=== PATIENT | male | born 1980 | race Caucasian/White ===

== ENCOUNTER 2023-04-30 13:33 | Outpatient (OUT) | payer MEDICARE, MEDICAID, SELFPAY ==
--- NOTE | 2023-04-30 13:37 | CT_ITS ---
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 TECHNIQUE: Multi-planar CT images were created with IV contrast. Axial, Coronal, and Sagittal images. Dose reduction techniques were achieved by using automated exposure control and/or adjustment of mA and/or kV according to patient size and/or use of iterative reconstruction technique. FINDINGS: LUNGS: Minimal right apical paraseptal emphysema. No significant pulmonary nodule or mass PLEURA: No mass, effusion, or pneumothorax. VASCULATURE: Hypodensity and bilateral lower lobe subsegmental pulmonary arteries however this is on several isolated slices incompletely relation to motion artifact or flow, the pattern argues against central pulmonary embolus JOCELYNE: No mass or adenopathy. MEDIASTINUM: No mass or adenopathy. CARDIAC: No enlargement, pericardial thickening, or significant calcification. AORTA: No aneurysm or dissection. CHEST WALL: No mass or axillary adenopathy. BONES: No bone lesion or fracture. LIMITED ABDOMEN: No suspicious findings. Limited images of the upper abdomen. OTHER: Negative. IMPRESSION: No acute abnormality Electronically authenticated by: RAMESH ROSE Date: 04/30/2023 17:07
== END 2023-04-30 13:34 ==
LOC: CT 13:34
DX: Q25.40 Congenital malformation of aorta unspecified (principal)
CPT/HCPCS: 71275; Q9967

== ENCOUNTER 2023-07-06 20:11 | Emergency (ER) | payer MEDICARE, MEDICAID, SELFPAY ==
[2023-07-06 20:16] VITALS: BP 145/79; PULSE 67; RESP 16; TEMP 37.1; O2SAT 97; BMI 30.8
--- NOTE | 2023-07-06 20:24 | ED_ITS ---
HPI - Extremity Injury (Upper) General Chief Complaint: Extremity Injury, Upper Stated Complaint: RIGHT HAND INJURY Time Seen by Provider: 07/06/23 20:19 History of Present Illness HPI narrative: moving furniture and cut his right hand overlying the 3rm MCP joint. No loss of strength or ROM of his fingers. UTD on vaccinations. Mild pain. Other Extremity Injury: Right: hand Related Data Allergies Allergy/AdvReac Type Severity Reaction Status Date / Time pertussis vaccine,adsorbed AdvReac Intermediate rash Verified 07/06/23 20:25 cephalexin AdvReac Severe Vomiting Uncoded 07/06/23 20:25 Review of Systems ROS Status of ROS 10 or more systems reviewed and unremarkable except as noted in h istory and below and other (patient is deaf) PFSH PFSH Social History Smoking status: Current every day smoker Exam Constitutional Vital Signs, click to edit/add: Last Vital Signs Temp 98.8 F 07/06/23 20:16 Pulse 67 07/06/23 20:16 Resp 16 07/06/23 20:16 BP 145/79 H 07/06/23 20:16 Pulse Ox 97 07/06/23 20:16 O2 Del Method Room Air 07/06/23 20:16 Common normals: no apparent distress, average body habitus, healthy appearing, alert and well nourished Eye Common normals: EOMs intact bilaterally and conjunctivae normal Respiratory Common normals: normal respiratory effort, no retractions and no use of accessory muscles Extremity Common normals: normal to inspection and full ROM Other: SQ 2cm lac overlying right 3rd MCP joint Neuro Common normals: CN's II-XII intact bilaterally, moves all extremities and no focal motor deficits Psych Appearance: grossly normal Course Vital Signs Vital signs: Vital Signs Temperature 98.8 F 07/06/23 20:16 Pulse Rate 67 07/06/23 20:16 Respiratory Rate 16 07/06/23 20:16 Blood Pressure 145/79 H 07/06/23 20:16 Pulse Oximetry 97 07/06/23 20:16 Oxygen Delivery Method Room Air 07/06/23 20:16 Temperature 98.8 F 07/06/23 20:16 Pulse Rate 67 07/06/23 20:16 Respiratory Rate 16 07/06/23 20:16 Blood Pressure 145/79 H 07/06/23 20:16 Pulse Oximetry 97 07/06/23 20:16 Oxygen Delivery Method Room Air 07/06/23 20:16 MDM - Extremity Injury (Upper) MDM Narrative Medical decision making narrative: presents with lac dorsum right hand overlying 3rd MCP. tendon exposure. xray unremarkable. lac repaired without incident. Patient discharged home to follow up with his doctor for recheck Discharge Plan Discharge Chief Complaint: Extremity Injury, Upper Clinical Impression: Laceration of hand, right Patient Disposition: Home, Self-Care Instructions: Laceration (ED) Additional Instructions: have wound rechecked in 2-3 days and stitches removed in 10 Stand Alone Forms: Portal Instructions Referrals: Physician,Non-Staff, MD [Primary Care Provider] - 1 week Procedures ED Procedure Instructions Procedures Procedures: 22mm lac SQ with exposure of extensor tendon. No obvious lac to tendon. 1%lido without epi as a local. Site cleaned with betadine and rinsed with saline. Closed with # 4 4.0 nylon stitches. Tolerated well
--- NOTE | 2023-07-06 20:25 | XR_ITS ---
[address] [address] Patient Name: KELI HATHAWAY MRN: [id number] date: 1980 Sex: M Assigned Patient Location: ER Current Patient Location: ED.MAIN Accession/Order Number: [id number] Exam Date: 07/06/2023 20:30 Report Date: 07/06/2023 20:48 At the request of: NANDO ALVARADO Procedure: XR hand RT min 3V EXAM: XR hand RT min 3V HISTORY: Laceration from lifting wood COMPARISON: None. TECHNIQUE: 3 views FINDINGS: IMPRESSION: No radiodense foreign body, osseous lesion, fracture, dislocation or subluxation. Joint spaces are normal. No visualized effusion. Electronically authenticated by: RAMESH RODRIGUEZ Date: 07/06/2023 20:48
--- NOTE | 2023-07-06 20:51 | PC.NURSE ---
laceration cleansed by DR at bedside prior to sutures.
[2023-07-06] MEDS: BACITRACIN 0.9 GM PACKET 1 PACKET TOPICAL (21:26)
== END 2023-07-06 21:36 | disposition home or self-care (01) ==
PROVIDERS: Emergency Provider Internal Medicine
DX: S61.411A Laceration without foreign body of right hand, initial encounter (principal); W26.9XXA Contact with unspecified sharp object(s), initial encounter; F17.210 Nicotine dependence, cigarettes, uncomplicated
CPT/HCPCS: 12001; 73130; 99284

== ENCOUNTER 2023-07-16 19:25 | Emergency (ER) | payer MEDICARE, MEDICAID, SELFPAY ==
[2023-07-16 19:33] VITALS: BP 125/76; PULSE 75; RESP 16; TEMP 36.6; O2SAT 98; BMI 25.1
--- NOTE | 2023-07-16 19:36 | ED.SKABFB1 ---
Documented by User: ANDI Wu 07/16/23 19:41 HPI - Skin/Abscess/Foreign Bdy General Chief complaint: Skin/Abscess/Foreign Body Stated complaint: Suture Removal Time Seen by Provider: 07/16/23 19:30 History of Present Illness HPI narrative: patient is a 42-year-old male history of deafness who presents to the emergency department for suture removal. He had four sutures placed per documentation on 07/06/23 when he had a tetanus update and a laceration to the right 3rd MCP joint. There is no noted redness or drainage from the area. at time of evaluation, patient is noted to only have three sutures in place to the laceration. Related Data Allergies Allergy/AdvReac Type Severity Reaction Status Date / Time pertussis vaccine,adsorbed AdvReac Intermediate rash Verified 07/06/23 20:25 cephalexin AdvReac Severe Vomiting Uncoded 07/06/23 20:25 Review of Systems ROS Constitutional Denies: fever or chills Ears, nose, mouth, and throat Denies: throat pain Cardiovascular Denies: chest pain Respiratory Denies: shortness of breath or cough Musculoskeletal Denies: back pain Integumentary/Breast Denies: rash PFSH PFS Social History Smoking status: Current every day smoker Exam Narrative Exam Narrative: Gen.: Awake, alert, in no distress Head: Normocephalic, atraumatic ENT: Moist mucous membranes Respiratory: No respiratory distress Extremities: Moves extremities equally, 3 Ethilon sutures at the 3rd MCP joint of the right hand. No erythema, no dehiscence or drainage noted. Psych: Normal mood and affect Neuro: No focal neuro deficit Skin: Warm, dry, intact Constitutional Vital Signs, click to edit/add: Last Vital Signs Temp 97.8 F 07/16/23 19:33 Pulse 75 07/16/23 19:33 Resp 16 07/16/23 19:33 BP 125/76 07/16/23 19:33 Pulse Ox 98 07/16/23 19:33 O2 Del Method Room Air 07/16/23 19:33 Course Vital Signs Vital signs: Vital Signs Temperature 97.8 F 07/16/23 19:33 Pulse Rate 75 07/16/23 19:33 Respiratory Rate 16 07/16/23 19:33 Blood Pressure 125/76 09/01/23 19:33 Pulse Oximetry 98 07/16/23 19:33 Oxygen Delivery Method Room Air 07/16/23 19:33 Temperature 97.8 F 07/16/23 19:33 Pulse Rate 75 07/16/23 19:33 Respiratory Rate 16 07/16/23 19:33 Blood Pressure 125/76 07/16/23 19:33 Pulse Oximetry 98 07/16/23 19:33 Oxygen Delivery Method Room Air 07/16/23 19:33 MDM - Skin/Abscess/Foreign Bdy MDM Narrative Medical decision making narrative: three sutures were removed intact with no residual suture material, no dehiscence or drainage. Follow-up with PCP and return to the Emergency Room if symptoms change or worsen Medical Records Attestation: I reviewed the patient's medical records. Discharge Plan Discharge Chief Complaint: Skin/Abscess/Foreign Body Clinical Impression: Encounter for removal of sutures Patient Disposition: Home, Self-Care Time of Disposition Decision: 19:35 Condition: Good Mode of Transportation: Private Vehicle Instructions: Stitches Removal (ED) Stand Alone Forms: Portal Instructions Referrals: Physician,Non-Staff, [Primary Care Provider] - 1 week Discharge Date/Time: 07/16/23 19:44 Documented by User: Zora Salazar MD 07/16/23 20:14 HPI - Skin/Abscess/Foreign Bdy General Chief complaint: Skin/Abscess/Foreign Body Stated complaint: Suture Removal Time Seen by Provider: 07/16/23 19:30 Related Data Allergies Allergy/AdvReac Type Severity Reaction Status Date / Time pertussis vaccine,adsorbed AdvReac Intermediate rash Verified 07/06/23 20:25 cephalexin AdvReac Severe Vomiting Uncoded 07/06/23 20:25 PFSH PFSH Social History Smoking status: Current every day smoker Exam Constitutional Vital Signs, click to edit/add: Last Vital Signs Temp 97.8 F 07/16/23 19:33 Pulse 75 07/16/23 19:33 Resp 16 07/16/23 19:33 BP 125/76 07/16/23 19:33 Pulse Ox 98 07/16/23 19:33 O2 Del Method Room Air 07/16/23 19:33 Course Vital Signs Vital signs: Vital Signs Temperature 97.8 F 07/16/23 19:33 Pulse Rate 75 07/16/23 19:33 Respiratory Rate 16 07/16/23 19:33 Blood Pressure 125/76 07/16/23 19:33 Pulse Oximetry 98 07/16/23 19:33 Oxygen Delivery Method Room Air 07/16/23 19:33 Temperature 97.8 F 07/16/23 19:33 Pulse Rate 75 07/16/23 19:33 Respiratory Rate 16 07/16/23 19:33 Blood Pressure 125/76 07/16/23 19:33 Pulse Oximetry 98 07/16/23 19:33 Oxygen Delivery Method Room Air 07/16/23 19:33 MDM - Skin/Abscess/Foreign Bdy MDM Narrative Medical decision making narrative: three sutures were removed intact with no residual suture material, no dehiscence or drainage. Follow-up with PCP and return to the Emergency Room if symptoms change or worsen Attending physician attestation All procedures were done by mid-level provider under my supervision. I have reviewed the mid-level documentation, agree with the documentation, medical decision making and treatment plan as outlined by the mid-level provider. Discharge Plan Discharge Chief Complaint: Skin/Abscess/Foreign Body Clinical Impression: Encounter for removal of sutures Patient Disposition: Home, Self-Care Time of Disposition Decision: 19:35 Condition: Good Mode of Transportation: Private Vehicle Instructions: Stitches Removal (ED) Stand Alone Forms: Portal Instructions Referrals: Physician,Non-Staff, MD [Primary Care Provider] - 1 week Discharge Date/Time: 07/16/23 19:44
--- NOTE | 2023-07-16 19:43 | PC.NURSE ---
PA in and removed 3 sutures. Area well approximated without S/S of infection
== END 2023-07-16 19:44 | disposition home or self-care (01) ==
PROVIDERS: Emergency Provider Emergency Medicine
DX: S61.411D Laceration without foreign body of right hand, subsequent encounter (principal); X58.XXXD Exposure to other specified factors, subsequent encounter; H91.90 Unspecified hearing loss, unspecified ear; F17.210 Nicotine dependence, cigarettes, uncomplicated
CPT/HCPCS: 99281

== ENCOUNTER 2023-08-23 11:22 | Emergency (ER) | payer MEDICARE, MEDICAID, SELFPAY ==
[2023-08-23 11:26] VITALS: BP 132/85; PULSE 105; RESP 18; TEMP 36.4; O2SAT 98; BMI 23.1
[2023-08-23 12:20] LABS: SARS-CoV-2 Ag NEGATIVE (NEGATIVE)
--- NOTE | 2023-08-23 13:23 | ED.EYEPROB1 ---
Documented by User: ANDI Hatfield 08/23/23 14:02 HPI - Eye Problem General Chief complaint: Upper Respiratory Infection Stated complaint: COUGH Time Seen by Provider: 08/23/23 13:23 Source: patient Mode of arrival: walk-in Limitations: other Limitations comment: DEAF History of Present Illness HPI Narrative: 42-year-old male presents with bilateral pruritic eyes with clear discharge for the past couple days. He is deaf and requiring an per diem interpreter. He is here with his who also has upper respiratory symptoms. He has been sneezing. He has been using clear eyes without any relief. Discharge is not green. Denies fever, sore throat, ear pain, cough, eye pain, vision changes Related Data Allergies Allergy/AdvReac Type Severity Reaction Status Date / Time pertussis vaccine,adsorbed AdvReac Intermediate rash Verified 07/06/23 20:25 cephalexin AdvReac Severe Vomiting Uncoded 07/06/23 20:25 Review of Systems ROS Status of ROS 10 or more systems reviewed and unremarkable except as noted in history and below PFSH PFSH Social History Smoking status: Current every day smoker Exam Narrative Exam Narrative: General: A&Ox3, no distress, talking in full an complete sentences skin: warm, dry, intact head: normocephalic, atraumatic eyes: PERRLA, EOMI, injected bilateral conjunctiva, no discharge nose: nares patent throat: no stridor neck: supple, trachea midline respiratory: non-labored extremities: FROM x 4 neuro: A&Ox3 psych: appropriate mood and affect, cooperative Constitutional Vital Signs, click to edit/add: Last Vital Signs Temp 97.6 F 08/23/23 11:26 Pulse 92 H 08/23/23 13:25 Resp 18 08/23/23 13:25 BP 136/88 08/23/23 13:25 Pulse Ox 98 08/23/23 13:25 O2 Del Method Room Air 08/23/23 11:26 Course Vital Signs Vital signs: Vital Signs Temperature 97.6 F 08/23/23 11:26 Pulse Rate 105 H 08/23/23 11:26 Respiratory Rate 18 08/23/23 11:26 Blood Pressure 132/85 08/23/23 11:26 Pulse Oximetry 98 08/23/23 11:26 Oxygen Delivery Method Room Air 08/23/23 11:26 Temperature 97.6 F 08/23/23 11:26 Pulse Rate 92 H 08/23/23 13:25 Respiratory Rate 18 08/23/23 13:25 Blood Pressure 136/88 08/23/23 13:25 Pulse Oximetry 98 08/23/23 13:25 Oxygen Delivery Method Room Air 08/23/23 11:26 MDM - Eye Problem MDM Narrative Medical decision making narrative: Patient complains of pruritic, swollen and red eyes and likely allergic versus viral as his also has upper respiratory symptoms and he is instructed to use [id number] Pataday eyedrops and follow-up family doctor. covid ordered by dr agarwal, this is negative. afebrile, not tachypneic, not tachycardic, tolerating p.o., not hypoxic, non toxic appearing and ambulating at baseline and hemodynamically stable to be d/c. answered all questions. pt in agreement with tx. educated when to return to ER. Lab Data Labs: Lab Results 08/23/23 Range/Units 11:55 SARS-CoV-2 (PCR) Negative (NEGATIVE) SARS-CoV-2 RNA (JAME) Not detected (NOT DETECTE) Discharge Plan Discharge Chief Complaint: Upper Respiratory Infection Clinical Impression: Acute allergic conjunctivitis of both eyes Patient Disposition: Home, Self-Care Time of Disposition Decision: 13:24 Condition: Good Mode of Transportation: Private Vehicle Instructions: Conjunctivitis (ED) Additional Instructions: use OTC eyedrops-pataday eye drops Stand Alone Forms: Portal Instructions Referrals: Physician,Non-Staff, [Primary Care Provider] - 1 week Discharge Date/Time: 08/23/23 13:54 Documented by User: Iain Agarwal MD 08/23/23 16:51 HPI - Eye Problem General Chief complaint: Upper Respiratory Infection Stated complaint: COUGH Time Seen by Provider: 08/23/23 13:23 Related Data Allergies Allergy/AdvReac Type Severity Reaction Status Date / Time pertussis vaccine,adsorbed AdvReac Intermediate rash Verified 07/06/23 20:25 cephalexin AdvReac Severe Vomiting Uncoded 07/06/23 20:25 PFSH PFS Social History Smoking status: Current every day smoker Exam Constitutional Vital Signs, click to edit/add: Last Vital Signs Temp 97.6 F 08/23/23 11:26 Pulse 92 H 08/23/23 13:25 Resp 18 08/23/23 13:25 BP 136/88 08/23/23 13:25 Pulse Ox 98 08/23/23 13:25 O2 Del Method Room Air 08/23/23 11:26 Course Vital Signs Vital signs: Vital Signs Temperature 97.6 F 08/23/23 11:26 Pulse Rate 105 H 08/23/23 11:26 Respiratory Rate 18 08/23/23 11:26 Blood Pressure 132/85 08/23/23 11:26 Pulse Oximetry 98 08/23/23 11:26 Oxygen Delivery Method Room Air 08/23/23 11:26 Temperature 97.6 F 08/23/23 11:26 Pulse Rate 92 H 08/23/23 13:25 Respiratory Rate 18 08/23/23 13:25 Blood Pressure 136/88 08/23/23 13:25 Pulse Oximetry 98 08/23/23 13:25 Oxygen Delivery Method Room Air 08/23/23 11:26 MDM - Eye Problem MDM Narrative Medical decision making narrative: Patient complains of pruritic, swollen and red eyes and likely allergic versus viral as his also has upper respiratory symptoms and he is instructed to use [id number] Pataday eyedrops and follow-up family doctor. covid ordered by dr agarwal, this is negative. afebrile, not tachypneic, not tachycardic, tolerating p.o., not hypoxic, non toxic appearing and ambulating at baseline and hemodynamically stable to be d/c. answered all questions. pt in agreement with tx. educated when to return to ER. I, Dr Agarwal, have reviewed the above progress note and course of action in the ER; agree with the above. I have personally seen and evaluated this patient, gone over history and physical, and discussed disposition and treatment plan with the patient. Lab Data Labs: Lab Results 08/23/23 Range/Units 11:55 SARS-CoV-2 (PCR) Negative (NEGATIVE) SARS-CoV-2 RNA (JAME) Not detected (NOT DETECTE) Discharge Plan Discharge Chief Complaint: Upper Respiratory Infection Clinical Impression: Acute allergic conjunctivitis of both eyes Patient Disposition: Home, Self-Care Time of Disposition Decision: 13:24 Condition: Good Mode of Transportation: Private Vehicle Instructions: Conjunctivitis (ED) Additional Instructions: use OTC eyedrops-pataday eye drops Stand Alone Forms: Portal Instructions Referrals: Physician,Non-Staff, MD [Primary Care Provider] - 1 week Discharge Date/Time: 08/23/23 13:54
[2023-08-23 13:25] VITALS: BP 136/88; PULSE 92; RESP 18; O2SAT 98
[2023-08-23 15:51] LABS: SARS-CoV-2 NAA NOT DETECTED (NOT DETECTE)
== END 2023-08-23 13:54 | disposition home or self-care (01) ==
PROVIDERS: Emergency Provider Emergency Medicine
DX: H10.33 Unspecified acute conjunctivitis, bilateral (principal); H91.93 Unspecified hearing loss, bilateral; F17.210 Nicotine dependence, cigarettes, uncomplicated; Z20.822 Contact with and (suspected) exposure to COVID-19
CPT/HCPCS: 87635; 87811; 99283; U0003

== ENCOUNTER 2023-12-29 19:15 | Emergency (ER) | payer MEDICARE, MEDICAID, SELFPAY ==
[2023-12-29 19:25] VITALS: BP 137/84; PULSE 73; RESP 16; TEMP 37; O2SAT 97; BMI 25.1
--- NOTE | 2023-12-29 19:43 | ED_ITS ---
HPI - General Adult General Chief complaint: Back Pain/Injury Stated complaint: Back Pain Time Seen by Provider: 12/29/23 19:27 Source: patient Mode of arrival: walk-in History of Present Illness HPI narrative: Patient is a 43-year-old male who presents to the ER with his significant other and child for the evaluation of multiple joints feeling sore and swollen. History is provided with the assistance of sign language interpreting service. Patient states for the last day he has had pain in the bilateral knees, right low back and left shoulder. He denies any mechanism of injury or trauma. He has had Mild cough and his has had the same. He has noted swelling of his knees but has not noticed any redness, rashes, fevers, vomiting. No medications taken prior to arrival. He has not had any urinary symptoms. Related Data Previous Rx's Medication Instructions Recorded ketorolac 10 mg tablet 10 mg PO TID PRN pain #10 tabs 12/29/23 methylprednisolone 4 mg tablets in See Rx Instructions .Route 12/29/23 a dose pack (Medrol (Robby)) .COMPLEX #21 ea Allergies Allergy/AdvReac Type Severity Reaction Status Date / Time pertussis vaccine,adsorbed AdvReac Intermediate rash Verified 07/06/23 20:25 cephalexin AdvReac Severe Vomiting Uncoded 07/06/23 20:25 Review of Systems ROS Constitutional Denies: fever or chills Ears, nose, mouth, and throat Denies: throat pain or nasal congestion Cardiovascular Denies: chest pain Respiratory Reports: cough; Denies: shortness of breath Gastrointestinal Denies: abdominal pain, nausea or vomiting Genitourinary Denies: painful urination Musculoskeletal Reports: back pain, extremity pain, extremity swelling, joint pain and joint swelling; Denies: neck pain, limited range of motion, muscle cramps or muscle weakness Integumentary/Breast Denies: rash Neurological Denies: headache Endocrine Denies: excessive urination Hematologic/Lymphatic Denies: easy bruising or easy bleeding PFSH PFSH Social History Smoking status: Current every day smoker Exam Narrative Exam Narrative: Gen.: Awake, alert, in no distress Head: Normocephalic, atraumatic ENT: Moist mucous membranes Respiratory: No respiratory distress, lungs clear bilaterally Cardio: Regular rate and rhythm Extremities: Moves extremities equally, no injuries noted; Bilateral anterior knees with minimal swelling, no erythema or warmth. Normal range of motion of the bilateral knees with no bony point tenderness or obvious deformity. Calves are soft and nontender, no pedal edema noted to the lower extremities. Left shoulder with full range of motion, no joint swelling or redness. Low back noted to have no tenderness over the midline T-spine or L-spine with diffuse mild tenderness of the paraspinal muscles of the right low back Psych: Normal mood and affect Neuro: No focal neuro deficit Skin: Warm, dry, intact Constitutional Vital Signs, click to edit/add: Last Vital Signs Temp 98.6 F 12/29/23 19:25 Pulse 73 12/29/23 19:25 Resp 16 12/29/23 19:25 BP 137/84 12/29/23 19:25 Pulse Ox 97 12/29/23 19:25 O2 Del Method Room Air 12/29/23 19:25 Course Vital Signs Vital signs: Vital Signs Temperature 98.6 F 12/29/23 19:25 Pulse Rate 73 12/29/23 19:25 Respiratory Rate 16 12/29/23 19:25 Blood Pressure 137/84 12/29/23 19:25 Pulse Oximetry 97 12/29/23 19:25 Oxygen Delivery Method Room Air 12/29/23 19:25 Temperature 98.6 F 12/29/23 19:25 Pulse Rate 73 12/29/23 19:25 Respiratory Rate 16 12/29/23 19:25 Blood Pressure 137/84 12/29/23 19:25 Pulse Oximetry 97 12/29/23 19:25 Oxygen Delivery Method Room Air 12/29/23 19:25 Medical Decision Making MDM Narrative Medical decision making narrative: Studies with normal white blood cell count, minimally elevated CRP and sed rates. Patient is negative for mono, urine specimen is unremarkable. X-rays were deferred as the patient had no mechanism of injury or trauma and has no jyoti dence of septic arthritis. He will be placed on a Medrol Dosepak and anti- inflammatories for home. Follow-up with PCP and return to the emergency department if symptoms change or worsen. Medical Records Medical records reviewed: Yes I reviewed the patient's medical records Lab Data Lab results reviewed: Yes I reviewed the patient's lab results Labs: Lab Results 12/29/23 12/29/23 Range/Units 19:35 20:15 WBC 8.0 (4.0-11.0) 10^3/uL RBC 4.88 (4.70-6.10) 10^6/uL Hgb 14.9 (14.0-18.0) g/dL Hct 43.7 (42.0-54.0) % MCV 89.5 (80.0-94.0) fL MCH 30.5 (25.9-34.0) pg MCHC 34.1 (29.9-35.2) g/dL RDW 12.2 (11.0-15.0) % Plt Count 238 (150-450) 10^3/uL MPV 8.8 L (9.5-13.5) fL Neut % (Auto) 66.5 (43.0-75.0) % Lymph % (Auto) 19.9 L (20.5-60.0) % [place] % (Auto) 12.0 (1.7-12.0) % Eos % (Auto) 0.6 L (0.9-7.0) % Baso % (Auto) 0.6 (0.2-2.0) % Neut # (Auto) 5.3 (1.4-6.5) 10^3/uL Lymph # (Auto) 1.6 (1.2-3.8) 10^3/uL [place] # (Auto) 1.0 H (0.3-0.8) 10^3/uL Eos # (Auto) 0.1 (0.0-0.7) 10^3/uL Baso # (Auto) 0.1 (0.0-0.1) 10^3/uL Abs Immat Gran (auto) 0.03 (0.00-0.03) 10^3/uL Imm/Tot Granulo (auto) 0.4 (0.0-0.5) % ESR 17 H (<=15) mm/hr Sodium 137 (136-145) mmol/L Potassium 3.5 (3.5-5.1) mmol/L Chloride 100 (98-107) mmol/L Carbon Dioxide 27.1 (21.0-32.0) mmol/L Anion Gap 13.4 BUN 11.0 (7.0-18.0) mg/dL Creatinine 1.08 (0.70-1.30) mg/dL Est GFR ( Amer) >60 (>=60) Est GFR (Non-Af Amer) >60 (>=60) BUN/Creatinine Ratio 10.2 Glucose 93 (74-106) mg/dL Calcium 8.7 (8.5-10.1) mg/dL Total Bilirubin 0.2 (0.2-1.0) mg/dL AST 12 L (15-37) U/L ALT 18 (16-63) U/L Alkaline Phosphatase 59 (46-116) U/L C-Reactive Protein 0.81 H (<=0.50) mg/dL Total Protein 6.7 (6.4-8.2) g/dL Albumin 3.4 (3.4-5.0) g/dL Globulin 3.3 g/dL Albumin/Globulin Ratio 1.0 Urine Color Yellow (YELLOW) Urine Clarity Clear (CLEAR) Urine pH 6.0 (5.0-9.0) Ur Specific [place] 1.025 (1.005-1.025) Urine Protein Negative (NEG/TRACE) mg/dL Urine Glucose (UA) Negative (NEGATIVE) mg/dL Urine Ketones Negative (NEGATIVE) mg/dL Urine Occult Blood Trace-i (NEGATIVE) Urine Nitrite Negative (NEGATIVE) Urine Bilirubin Negative (NEGATIVE) Urine Urobilinogen 0.2 (0.2-1.0) EU/dL Ur Leukocyte Esterase Negative (NEGATIVE) Urine RBC 0-2 (0-2) #/HPF Urine WBC None seen (NONE SEEN) #/HPF Ur Squamous Epith Cells None seen (NONE/RARE) #/LPF Urine Crystals None seen (None Seen) #/HPF Urine Bacteria None seen (NONE SEEN) #/HPF Urine Casts None seen (NONE SEEN) #/LPF Urine Mucus None seen (NONE SEEN) Ur Culture Indicated? No Monoscreen Negative (NEGATIVE) Discharge Plan Discharge Chief Complaint: Back Pain/Injury Clinical Impression: Polyarthralgia Patient Disposition: Home, Self-Care Time of Disposition Decision: 21:09 Condition: Good Prescriptions / Home Meds: New ketorolac 10 mg tablet 10 mg PO TID PRN (Reason: pain) Qty: 10 0RF methylprednisolone [Medrol (Robby)] 4 mg tablets,dose pack See Rx Instructions .ROUTE .COMPLEX Qty: 21 0RF Rx Instructions: Taper as directed Instructions: Arthralgia (ED) Stand Alone Forms: Portal Instructions Referrals: Physician,Non-Staff, MD [Primary Care Provider] - 1 week
[2023-12-29] MEDS: KETOROLAC TROMETHAMINE 60 MG/2 ML VIAL IM (19:54)
[2023-12-29] MEDS: ORPHENADRINE 60 MG/ 2 ML VIAL IM (19:54)
--- NOTE | 2023-12-29 20:26 | PC.NURSE ---
Pt presents with new onset of joint pain, specifically both knees, left shoulder and lower back. Pt denies having this before or doing anything that may have brought this on . Pts joints have no notable swelling or redness. No increased warmth to joints. Pt is hearing impaired and was assessed using an slasher sawyer.
[2023-12-29 20:32] LABS: Basophils Absolute Auto 0.1 10^3/uL (0.0-0.1); Basophils Percent Auto 0.6 % (0.2-2.0); Eosinophils Absolute Auto 0.1 10^3/uL (0.0-0.7); Eosinophils Percent Auto 0.6 % (0.9-7.0); Hematocrit 43.7 % (42.0-54.0); Hemoglobin 14.9 g/dL (14.0-18.0); Immature Granulocytes Abs Auto 0.03 10^3/uL (0.00-0.03); Immature Granulocytes Pct Auto 0.4 % (0.0-0.5); Lymphocytes Absolute Auto 1.6 10^3/uL (1.2-3.8); Lymphocytes Percent Auto 19.9 % (20.5-60.0); Mean Corpuscular HGB Conc 34.1 g/dL (29.9-35.2); Mean Corpuscular Hemoglobin 30.5 pg (25.9-34.0); Mean Corpuscular Volume 89.5 fL (80.0-94.0); Mean Platelet Volume 8.8 fL (9.5-13.5); Neutrophils Absolute Auto 5.3 10^3/uL (1.4-6.5); Neutrophils Percent Auto 66.5 % (43.0-75.0); Platelet Count 238 10^3/uL (150-450); Red Blood Count 4.88 10^6/uL (4.70-6.10); Red Cell Distribution Width 12.2 % (11.0-15.0)
[2023-12-29 20:36] LABS: Bilirubin Urine NEGATIVE (NEGATIVE); Blood Urine TRACE-I (NEGATIVE); Clarity Urine CLEAR (CLEAR); Color Urine YELLOW (YELLOW); Glucose Urine UA NEGATIVE (NEGATIVE); Ketones Urine NEGATIVE (NEGATIVE); Leukocyte Esterase Urine NEGATIVE (NEGATIVE); Nitrite Urine NEGATIVE (NEGATIVE); Protein Urine NEGATIVE (NEG/TRACE); Specific Gravity Urine 1.025 (1.005-1.025); Urobilinogen Urine 0.2 EU/dL (0.2-1.0)
[2023-12-29 20:44] LABS: Urine Microscopic Indicated YES
[2023-12-29 20:46] LABS: Erythrocyte Sedimentation Rate 17 mm/hr (<=15)
[2023-12-29 20:52] LABS: Bacteria Urine NONE SEEN #/HPF (NONE SEEN); Cast Seen? NONE SEEN #/LPF (NONE SEEN); Crystals Seen? None Seen #/HPF (None Seen); Mucus Urine NONE SEEN (NONE SEEN); RBC Urine 0-2 #/HPF (0-2); Squamous Epithelial Cell Urine NONE SEEN #/LPF (NONE/RARE); Urine Culture Indicated NO; WBC Urine NONE SEEN #/HPF (NONE SEEN)
[2023-12-29 20:56] LABS: Mono Screen NEGATIVE (NEGATIVE)
[2023-12-29 21:00] LABS: Alanine Aminotransferase 18 U/L (16-63); Albumin Level 3.4 g/dL (3.4-5.0); Alkaline Phosphatase 59 U/L (46-116); Anion Gap 13.4; Aspartate Amino Transferase 12 U/L (15-37); BUN Creatinine Ratio 10.2; Bilirubin Total 0.2 mg/dL (0.2-1.0); Calcium 8.7 mg/dL (8.5-10.1); Carbon Dioxide 27.1 mmol/L (21.0-32.0); Chloride 100 mmol/L (98-107); Estimated GFR (African America >60 (>=60); Estimated GFR (Non-African Ame >60 (>=60); Globulin 3.3 g/dL; Glucose 93 mg/dL (74-106); Potassium 3.5 mmol/L (3.5-5.1); Sodium 137 mmol/L (136-145); Total Protein 6.7 g/dL (6.4-8.2)
[2023-12-29 21:05] LABS: C Reactive Protein 0.81 mg/dL (<=0.50)
== END 2023-12-29 21:32 | disposition home or self-care (01) ==
PROVIDERS: Physician Assistant; Emergency Provider Emergency Medicine
DX: M25.50 Pain in unspecified joint (principal)
CPT/HCPCS: 36415; 80053; 81001; 85025; 85652; 86140; 86308; 96372; 99285; J1885; J2360

== ENCOUNTER 2024-01-19 08:56 | Emergency (ER) | payer MEDICARE, MEDICAID, SELFPAY ==
[2024-01-19 09:05] VITALS: BP 128/85; PULSE 74; RESP 18; TEMP 36.7; O2SAT 96; BMI 23.7
--- NOTE | 2024-01-19 09:12 | XR_ITS ---
The [address] [address] Patient Name: KELI HATHAWAY MRN: [id number] date: 1980 Sex: M Assigned Patient Location: ER Current Patient Location: ER Accession/Order Number: [id number] Exam Date: 01/19/2024 09:30 Report Date: 01/19/2024 09:44 At the request of: NATE PATRICIA Procedure: XR hand RT min 3V PROCEDURE: XR hand RT min 3V COMPARISON: 07/06/2023 HISTORY: pain FINDINGS: BONES:No fracture, acute abnormality, or significant arthropathy. SOFT TISSUES:Dorsal hand soft tissue swelling at the metatarsal heads EFFUSION:None visible. OTHER: Negative. XR/XR hand RT min 3V IMPRESSION: Soft tissue swelling, no acute fracture Electronically authenticated by: RAMESH ROSE Date: 01/19/2024 09:44
--- NOTE | 2024-01-19 10:15 | ED_ITS ---
HPI - General Adult General Chief complaint: Extremity Problem, Nontraumatic Stated complaint: UPPER XTREMITY PAIN Time Seen by Provider: 01/19/24 09:12 Source: patient Mode of arrival: walk-in Limitations: language barrier History of Present Illness HPI narrative: Patient is a 43-year-old male who is presenting to the ER today with chief complaint of a small area of swelling to the dorsal aspect of the right hand over the third MCP joint. Approxione 0.5 years ago, patient had a laceration to the area, showed me a picture of it that had approximately 5 or 6 stitches. Patient has intermittent soreness and pain to the area, patient always has had a small hole that is approximately 2 mm circumference that patient will intermittently have yellow pus draining out of. For the past 3 to 4 days, patient has had more swelling to the area, soft, fluctuant, and causing some discomfort with flexion extension of his right hand. Patient has no fever, chills, nausea, or any other systemic complaints. Patient's is at bedside. Patient uses sign language along with his for communication. A population health coach on the iPad was used with effective and clear communication with HPI, physical exam, discharge plan in summary and follow-up. All systems are negative except as noted/marked. All systems reviewed and otherwise negative. Nurses note and vital signs reviewed and patient is not hypoxic. General: The patient appears well and in no apparent distress. Patient is resting comfortably on cart. Patient is not toxic, lethargic, or listless Skin: Warm, dry, no pallor noted. There is no rash noted. No petechiae, purpura. Patient has a area of approximately 3 x 2 cm that is raised approximately 0.5 cm that is soft, fluctuant, mild tenderness to palpation. Patient does have full flexion extension of right second, third, fourth finger, but there is some discomfort with minimal grimace to his face with range of motion. No signs of trigger finger. Patient has no drainage from a chronic s car/area where the skin in the neck completely closed is approximately 2 mm in circumference. No discharge, pus or fluid is able to be extracted from the area. Head: Normocephalic, atraumatic Eye: Normal conjunctiva, no drainage, EOMI. PERRL Ears, Nose, Mouth, and Throat: oral mucosa is moist. Nares patent. Mouth without vesicles. Cardiovascular: Regular Rate and Rhythm, no murmur, gallop, rub Respiratory: Patient is in no distress, no accessory muscle use, lungs are clear to auscultation, no wheezing, rales or rhonchi Musculoskeletal: Patient has full range of motion of all of the extremities, no motor, sensory, or focal neurological deficits. patient has no limitation on flexion extension of the right hand. Neurological: A&O x4, normal speech Psychiatric: Cooperative Related Data Previous Rx's Medication Instructions Recorded ketorolac 10 mg tablet 10 mg PO TID PRN pain #10 tabs 12/29/23 methylprednisolone 4 mg tablets in See Rx Instructions .Route 12/29/23 a dose pack (Medrol (Robby)) .COMPLEX #21 ea mupirocin 2 % topical ointment 1 applic topical TID 14 days #15 01/19/24 grams sulfamethoxazole 800 1 tab PO BID 7 days #14 tabs 01/19/24 mg-trimethoprim 160 mg tablet (Bactrim DS) Allergies Allergy/AdvReac Type Severity Reaction Status Date / Time pertussis vaccine,adsorbed AdvReac Intermediate rash Verified 07/06/23 20:25 cephalexin AdvReac Severe Vomiting Uncoded 07/06/23 20:25 [facility] Social History Smoking status: Current every day smoker Exam Constitutional Vital Signs, click to edit/add: Last Vital Signs Temp 98.0 F 01/19/24 09:05 Pulse 74 01/19/24 09:05 Resp 18 01/19/24 09:05 BP 128/85 01/19/24 09:05 Pulse Ox 96 01/19/24 09:05 O2 Del Method Room Air 01/19/24 09:05 Course Vital Signs Vital signs: Vital Signs Temperature 98.0 F 01/19/24 09:05 Pulse Rate 74 01/19/24 09:05 Respiratory Rate 18 01/19/24 09:05 Blood Pressure 128/85 01/19/24 09:05 Pulse Oximetry 96 01/19/24 09:05 Oxygen Delivery Method Room Air 01/19/24 09:05 Temperature 98.0 F 01/19/24 09:05 Pulse Rate 74 01/19/24 09:05 Respiratory Rate 18 01/19/24 09:05 Blood Pressure 128/85 01/19/24 09:05 Pulse Oximetry 96 01/19/24 09:05 Oxygen Delivery Method Room Air 01/19/24 09:05 Medical Decision Making MDM Narrative Medical decision making narrative: Patient will be placed on Bactrim and Bactroban. Patient has a appointment that was made for Dr. Grant at 830 on Wednesday morning. Education on abscess and soft tissue skin mass was given at bedside and on discharge paperwork. Patient may have possible seroma versus ganglion cyst, there is minimal redness/erythema to the area. Patient will follow-up with orthopedic surgery. Patient uses sign language for interpretation. A population health coach was used on the iPad, HPI, physical exam, discharge plan in summary and follow-up were clear and effective with sign language translation. No questions at discharge from patient or his at bedside. Discharge Plan Discharge Chief Complaint: Extremity Problem, Nontraumatic Clinical Impression: Swelling of right hand, Abscess of right hand Patient Disposition: Home, Self-Care Time of Disposition Decision: 10:10 Condition: Fair Prescriptions / Home Meds: New mupirocin 2 % ointment 1 applic topical TID 14 Days Qty: 15 0RF sulfamethoxazole-trimethoprim [Bactrim DS] 800-160 mg tablet 1 tab PO BID 7 Days Qty: 14 0RF No Action ketorolac 10 mg tablet 10 mg PO TID PRN (Reason: pain) Qty: 10 0RF methylprednisolone [Medrol (Robby)] 4 mg tablets,dose pack See Rx Instructions .ROUTE .COMPLEX Qty: 21 0RF Rx Instructions: Taper as directed Instructions: Abscess (ED), Soft Tissue Mass (ED) Additional Instructions: Use antibiotic ointment 3 times a day for the next 3 weeks and also take antib iotic pills as directed as well. You have an appointment made at 8:30 in the morning here at [facility] with Dr. Grant at the specialty clinic Referrals: Physician,Non-Staff, [Primary Care Provider] - 1 week Erwin Grant MD [Physician] - 1 week Stand Alone Forms: Portal Instructions
== END 2024-01-19 10:25 | disposition home or self-care (01) ==
PROVIDERS: Emergency Provider Emergency Medicine
DX: L02.511 Cutaneous abscess of right hand (principal); M79.89 Other specified soft tissue disorders; F17.210 Nicotine dependence, cigarettes, uncomplicated; H91.93 Unspecified hearing loss, bilateral
CPT/HCPCS: 73130; 99283

== ENCOUNTER 2024-02-07 08:44 | Outpatient (OUT) | payer MEDICARE, MEDICAID, SELFPAY ==
--- NOTE | 2024-02-07 | XR_ITS ---
The [address] [address] Patient Name: KELI HATHAWAY MRN: [id number] date: 1980 Sex: M Assigned Patient Location: Current Patient Location: Accession/Order Number: [id number] Exam Date: 02/07/2024 08:55 Report Date: 02/07/2024 09:37 At the request of: JORGE LUIS SOLO Procedure: XR hand RT min 3V PROCEDURE: XR hand RT min 3V COMPARISON: 01/19/2024 HISTORY: RIGHT HAND PAIN FINDINGS: BONES:No fracture, acute abnormality, or significant arthropathy. SOFT TISSUES:Soft tissue swelling at the third metacarpal phalangeal joint EFFUSION:None visible. OTHER: Negative. XR/XR hand RT min 3V IMPRESSION: Soft tissue swelling possibly representing joint effusion third metacarpal phalangeal joint Electronically authenticated by: RAMESH ROSE Date: 02/07/2024 09:37
--- OUTSIDE RECORDS SUMMARY | 2024-02-07 08:59 | XMS_ITS | CCD ---
Author Organization [facility] Care Team Providers Care Labor Gang Supervisor Name Role Phone BETH MARTINEZ Unavailable Unavailable Spasic, QUALITY ASSURANCE SUPERVISOR TRIMTaiC Ela Bey Attending Provider Spasic, Ela Bey Admitting Unavailable Spasic, Ela Bey Attending Unavailable SPASIC, ELA Admitting Unavailable SPASIC, ELA Attending Unavailable SPASIC, ELA Primary Care Unavailable DR RAMESH ROSE V Consulting Unavailable NEFCY, KAYODE Consulting Unavailable SPASIC, ELA Consulting Unavailable SPASIC, ELA Admitting Unavailable SPASIC, ELA Attending Unavailable SPASIC, ELA Primary Care Unavailable SPASIC, ELA Consulting Unavailable Allergies Allergy Classification Reported Allergen(s) Allergy Type Date of Onset Reaction(s) Facility (1 source) 4-Aminobenzoic Acid Drug Allergy 05-24-2017 [facility] Repository (1 source) Cephalexin Drug Allergy 05-24-2017 [facility] Repository Problems Active Problems Problem Classification Problem Date Documented Date Episodic/Chronic Nonspecific chest pain (6 sources) Other chest pain; Translations: [Other chest pain] Onset: 12-10-2022 Episodic Other screening for suspected conditions (not mental disorders or infectious disease) (4 sources) Abnormal electrocardiogram [ECG] [EKG]; Translations: [ABNORMAL ELECTROCARDIOGRAM] Onset: 03-24-2023 Episodic Spondylosis; intervertebral disc disorders; other back problems (1 source) Spondylosis without myelopathy or radiculopathy, cervical region; Translations: [SPONDYLS W/O MYELO-/RADICULOP CERV] Onset: 12-25-2022 Chronic Thyroid disorders (1 source) Nontoxic goiter, unspecified; Translations: [NONTOXIC GOITER UNSPECIFIED] Onset: 12-25-2022 Chronic Past or Other Problems Problem Classification Problem Date Documented Da te Episodic/Chronic Genitourinary symptoms and ill-defined conditions (2 sources) Urethral discharge, unspecified; Translations: [Urethral discharge, unspecified] Onset: 01-26-2018 Episodic Spondylosis; intervertebral disc disorders; other back problems (1 source) Cervicalgia; Translations: [CERVICALGIA] Onset: 12-25-2022 Episodic Results Test Name Value Interpretation Reference Range Facility ECHO LIMITED STUDYon 023 ECHO LIMITED STUDY Patient Name Site KELI Corbett [facility] Account No Medical Record Number Age Sex Date Time [id number] [facility]:[id number] M 03/24/2023 10:03 At the Request Of ELA SALMERON ECHOCARDIOGRAM REPORT PROCEDURE: CARDIO PULMONARY ECHO LIMITED STUDY INDICATIONS: Abnormal EKG, Atypical Chest pain COMPARISON: None. DESCRIPTION: Limited ECHOCARDIOGRAM Real-time transthoracic echocardiography with 2D and M-mode performed. QUALITY: Technical quality was good. BSA 2.08 LEFT VENTRICLE: Normal chamber size. Normal left ventricular wall thickness. Global left ventricular systolic function is normal. LV EF: Estimated left ventricular ejection fraction is 55-60% DIASTOLIC: ATRIAL SEPTUM: LEFT ATRIUM: Normal chamber size. RIGHT ATRIUM: Normal chamber size. RIGHT VENTRICLE: The right ventricle appears mildly dilated. Normal right ventricular systolic function. TRICUSPID VALVE: Normal mobility and thickness. MITRAL VALVE: Normal mobility and thickness. AORTIC VALVE: Normal trileaflet appearance. Normal leaflet mobility. AORTIC ROOT: Mildly dilated. Measuring 3.8 cm. PULMONIC VALVE: Normal thickness and mobility. PERICARDIUM: No evidence of pericardial effusion. IVC: Collapses with inspirations. Normal size PLEURA: CONCLUSION: 1. Normal left ventricular systolic function. LVEF is estimated at 55 to 60%. 2. The right ventricle is mildly dilated with normal systolic function. 3. Mildly dilated aortic root. 4. Limited study performed with no Doppler interrogation as requested. Adult Echocardiography Procedure Report Left Ventricle LVEDD (3.7 - 5.6 cm): 4.91 cm LVESD (2.2 - 4.0 cm): 3.22 cm LVIVS thickness (0.6 - 1.2 cm): 0.94 cm LVPW thickness (0.5 - 1.0 cm): 1.01 cm LVOT Diameter 2.26 cm Left Ventricular Ejection Fraction: 55-60 % Left Atrium LA Volume Index (2D A2C): 47.36 ml, 47.36 ml Left Atrium Systolic Dimension: 3.71 cm Mitral Valve Right Ventricle RV Internal Diastolic Dimension: 3.07 cm Aorta AO Root Diam: 3.79 cm Ascending Ao Diam: 3.55 cm Aortic Valve Tricuspid Valve Pulmonic Valve Right Atrium Dictated by: Avelino Galicia M.D. on 03/24/2023 at 18:09 Approved by: Avelino Galicia M.D. on 03/24/2023 at 18:14 Normal [facility] XR CSPINE 2_3 VIEWSon 2022 XR CSPINE 2_3 VIEWS EXAMINATION: XR CSPI NE 2_3 VIEWS HISTORY: Neck pain COMPARISON: 03/08/1950 FINDINGS: BONES: Normal alignment with no acute fracture or spondylolisthesis. Mild degenerative spondylosis C5-C6 DISC SPACES: Normal. No significant disc height narrowing, subluxation, or endplate abnormality. PARASPINOUS: Negative. No paraspinous abnormality is seen. OTHER: Remote fixation of the mandible with plates and screws. IMPRESSION: Moderate degenerative spondylosis C5-C6 Electronically authenticated by: RAMESH ROSE Date: 2022-12-24 07:41 Normal [facility] US THYROIDon 12-23-2022 US THYROID EXAM: US THYROID HISTORY: Simple goiter COMPARISON: None. TECHNIQUE: Multiple sonographic images of the thyroid gland were obtained, supplemented with Doppler. FINDINGS: The right lobe measures 4.7 x 1.3 x 1.4 cm. Homogeneous echoes are noted throughout. No nodule is identified within. The left lobe measures 4.8 x 1.1 x 1.6 cm. Homogeneous echoes are noted throughout. No nodule is identified within. The isthmus measures 1 mm in thickness. There is no evidence of a focal mass or abnormal fluid collection surrounding the gland. At the end of the abdomen ultrasound study the patient indicated the soft tissues in the submandibular region bilaterally. Small lymph nodes are noted bilaterally inferior to the submandibular glands. IMPRESSION: The thyroid gland is at the upper limits of normal in size. No abnormality is identified within. TI RADS 1. Incidentally noted are small lymph nodes seen in the soft tissues inferior to the submandibular gland bilaterally. Electronically authenticated by: KAYODE ONEILL Date: 2022-12-23 15:22 Normal [facility] XR CHEST 2 Von 12-23-2022 XR CHEST 2 V EXAM: XR CHEST 2 V HISTORY: Chest pain COMPARISON: 04/30/2013 TECHNIQUE: Upright PA and lateral chest x-ray FINDINGS: The heart is not enlarged and the vasculature is not distended. No acute infiltrate, effusion or pneumothorax is identified. The osseous structures are grossly intact. IMPRESSION: No acute infiltrate or evidence of cardiac decompensation. The overall appearance of the chest is unchanged. Electronically authenticated by: KAYODE ONEILL Date: 2022-12-23 15:25 Normal [facility] Albumin [Mass/volume] in Ser um or PlasmaOrdered By: Ela Salmeron on 12-10-2022 Albumin [Mass/Vol] 3.9 g/dL Normal 3.2-5.5 [facility] Comment on above: Order Comment: Reaso n for Exam Atypical chest pain Performed By: #### H SCRP, CBC, CMP, TSH3 wRFLX, FE and TIBC, LIPID #### [facility] [address] [place] [address] Automated basophil %Ordered By: Ela Salmeron on 12-10-2022 Basophils/100 WBC (Bld) 0.8 % Normal . [facility] Comment on above: Order Comment: Reaso n for Exam Atypical chest pain Performed By: #### H SCRP, CBC, CMP, TSH3 wRFLX, FE and TIBC, LIPID #### [facility] [address] [place] [address] Automated basophil countOrde red By: Ela Salmeron on 12-10-2022 Basophils (Bld) [#/Vol] 0.1 10*3/uL Normal 0.0-0.2 [facility] Comment on above: Order Comment: Reaso n for Exam Atypical chest pain Result Comment: PERF ORMED BY: [place] [address] PATHOLOGIST MASTER [employer] YACHT KAIA ORELLANA M.D. Performed By: #### H SCRP, CBC, CMP, TSH3 wRFLX, FE and TIBC, LIPID #### [facility] [address] [place] [address] Automated blood monocyte cou ntOrdered By: Ela Salmeron on 12-10-2022 Monocytes (Bld) [#/Vol] 0.7 10*3/uL Normal 0.0-0.8 [facility] Comment on above: Order Comment: Reaso n for Exam Atypical chest pain Performed By: #### H SCRP, CBC, CMP, TSH3 wRFLX, FE and TIBC, LIPID #### [facility] [address] [place] [id number] [place] Automated eosinophil %Ordere d By: Ela June on 12-10-2022 Eosinophils/100 WBC (Bld) 3.2 % Normal . [facility] Comment on above: Order Comment: Reaso n for Exam Atypical chest pain Performed By: #### H SCRP, CBC, CMP, TSH3 wRFLX, FE and TIBC, LIPID #### [facility] [address] Automated eosinophil countOr dered By: Ela June on 12-10-2022 Eosinophils (Bld) [#/Vol] 0.3 10*3/uL Normal 0.0-0.45 [facility] Comment on above: Order Comment: Reaso n for Exam Atypical chest pain Performed By: #### H SCRP, CBC, CMP, TSH3 wRFLX, FE and TIBC, LIPID #### [facility] [address] [place] [id number] [facility] Automated monocyte %Ordered By: Ela June on 12-10-2022 Monocytes/100 WBC (Bld) 8.5 % Normal . [facility] Comment on above: Order Comment: Reaso n for Exam Atypical chest pain Performed By: #### H SCRP, CBC, CMP, TSH3 wRFLX, FE and TIBC, LIPID #### [facility] [address] [place] [address] [place] Automated neutrophil %Ordere d By: Ela June on 12-10-2022 Neutrophils/100 WBC (Bld) 59.1 % Normal . [facility] Comment on above: Order Comment: Reaso n for Exam Atypical chest pain Performed By: #### H SCRP, CBC, CMP, TSH3 wRFLX, FE and TIBC, LIPID #### [facility] [address] [place] [address] [place] C reactive protein [Mass/vol ume] in Serum or Plasma by High sensitivity methodOrdered By: Ela Salmeron on 12-10-2022 CRP High sensitivity method [Mass/Vol] 5.5 mg/L [facility] Comment on above: Cardiovascular Risk Classification (AHA/CDC)hsCRP < 1.0 mg/l low relative risk for CVDhsCRP 1.0-3.0 mg/l average relative risk for CVDhsCRP > 3.0 mg/l high relative risk for CVDhsCRP > 7.5 mg/l active inflammation*Two results two weeks apart and averaged provide a morestable estimate of hsCRP level.*hsCRP levels > 7.5 mg/l may suggest infection that canlimit the use of this marker for estimation of CVD risk. CT biopsyOrdered By: Ela pena on 12-10-2022 Transferrin [Mass/Vol] 203 mg/dL Normal 180-380 [facility] Comment on above: Order Comment: Reaso n for Exam Atypical chest pain Performed By: #### H SCRP, CBC, CMP, TSH3 wRFLX, FE and TIBC, LIPID #### [facility] [address] [place] [address] [place] Cholesterol [Mass/volume] in Serum or PlasmaOrdered By: Ela Salmeron on 12-10-2022 Cholesterol [Mass/Vol] 146 mg/dL Normal 140-200 [facility] Comment on above: Chol less than 200 m g/dl low riskChol 201-239 mg/dl borderline riskChol 240 mg/dl and greater high risk Order Comment: Reaso n for Exam Atypical chest pain Result Comment: Chol less than 200 mg/dl low risk Chol 201-239 mg/dl borderline risk Chol 240 mg/dl and greater high risk Performed By: #### H SCRP, CBC, CMP, TSH3 wRFLX, FE and TIBC, LIPID #### [facility] [address] [place] [address] [place] Cholesterol in LDL Calc [Mas s/Vol]Ordered By: Ela Salmeron on 12-10-2022 Cholesterol in LDL [Mass/Vol] 81 mg/dL 0-100 [facility] Comment on above: LDL ATP III CLASSIFI CATIONLDL less than 100 mg/dL OptimalLDL 100-129 mg/dL Near or above optimalLDL 130-159 mg/dL Borderline highLDL 160-189 mg/dL HighLDL greater than 189 mg/dL Very high Cholesterol in VLDL Calc [Ma ss/Vol]Ordered By: Ela Salmeron on 12-10-2022 Cholesterol in VLDL [Mass/Vol] 33 mg/dL [facility] Complete Blood Count Auto Di ffon 12-10-2022 Mean Corpuscular HGB Conc 33.7 g/dL Normal 32.5-35.6 [facility] Comment on above: Order Comment: Reaso n for Exam Atypical chest pain Performed By: #### H SCRP, CBC, CMP, TSH3 wRFLX, FE and TIBC, LIPID #### [facility] [address] NRBC% 0.1 /100{WBC} Normal 0-0.5 [facility] Comment on above: Order Comment: Reaso n for Exam Atypical chest pain Performed By: #### H SCRP, CBC, CMP, TSH3 wRFLX, FE and TIBC, LIPID #### [facility] [address] Comprehensive Metabolic Pane noemy 12-10-2022 ALT [Catalytic activity/Vol] 13 U/L Normal 10-60 [facility] Comment on above: Order Comment: Reaso n for Exam Atypical chest pain Performed By: #### H SCRP, CBC, CMP, TSH3 wRFLX, FE and TIBC, LIPID #### [facility] [address] [place] [address] [place] Estimated GFR ( Anyi > 60 Normal [facility] Comment on above: Order Comment: Reaso n for Exam Atypical chest pain Result Comment: GFR estimated reference range: According to KDOQI guidelines, <60 ml/min/1.73m2 is sufficient to diagnose a patient with chronic kidney disease. Performed By: #### H SCRP, CBC, CMP, TSH3 wRFLX, FE and TIBC, LIPID #### [facility] [address] Estimated GFR (Non- Am > 60 Normal [facility] Comment on above: Order Comment: Reaso n for Exam Atypical chest pain Performed By: #### H SCRP, CBC, CMP, TSH3 wRFLX, FE and TIBC, LIPID #### [facility] [address] Erythrocyte distribution wid th [Ratio] by Automated countOrdered By: Ela Salmeron on 12-10-2022 Erythrocyte distribution width (RBC) [Ratio] 12.8 % Normal 12.0-14.8 [facility] Comment on above: Order Comment: Reaso n for Exam Atypical chest pain Performed By: #### H SCRP, CBC, CMP, TSH3 wRFLX, FE and TIBC, LIPID #### [facility] [address] Erythrocytes [#/volume] in B lood by Automated countOrdered By: Ela Salmeron on 12-10-2022 RBC (Bld) [#/Vol] 5.05 10*6/uL Normal 3.90-5.60 [facility] Comment on above: Order Comment: Reaso n for Exam Atypical chest pain Performed By: #### H SCRP, CBC, CMP, TSH3 wRFLX, FE and TIBC, LIPID #### [address] Estimated glomerular filtrat ion rate (GFR) non- AmericanOrdered By: Ela Salmeron on 12-10-2022 GFR/1.73 sq M.predicted among non-blacks MDRD (S/P/Bld) [Vol rate/Area] > 60 mL/Min [facility] Hematocrit [Volume Fraction] of Blood by Automated countOrdered By: Ela Salmeron on 12-10-2022 Hematocrit (Bld) [Volume fraction] 44.9 % Normal 38.8-50.0 [facility] Comment on above: Order Comment: Reaso n for Exam Atypical chest pain Performed By: #### H SCRP, CBC, CMP, TSH3 wRFLX, FE and TIBC, LIPID #### [facility] [address] Hemoglobin [Mass/volume] in BloodOrdered By: Ela Salmeron on 12-10-2022 Hemoglobin (Bld) [Mass/Vol] 15.1 g/dL Normal 13.0-17.0 [facility] Comment on above: Order Comment: Reaso n for Exam Atypical chest pain Performed By: #### H SCRP, CBC, CMP, TSH3 wRFLX, FE and TIBC, LIPID #### [facility] [address] [place] [id number] [facility] High Sensitive CRPon 023 High Sensitive CRP 5.5 mg/L Normal [facility] Comment on above: Order Comment: Reaso n for Exam Atypical chest pain Result Comment: Card iovascular Risk Classification (AHA/CDC) hsCRP < 1.0 mg/l low relative risk for CVD hsCRP 1.0-3.0 mg/l average relative risk for CVD hsCRP > 3.0 mg/l high relative risk for CVD hsCRP > 7.5 mg/l active inflammation* Two results two weeks apart and averaged provide a more stable estimate of hsCRP level. *hsCRP levels > 7.5 mg/l may suggest infection that can limit the use of this marker for estimation of CVD risk. PERFORMED BY: [place] [address] PATHOLOGIST MASTER [employer] YACHT KAIA ORELLANA M.D. Performed By: #### H SCRP, CBC, CMP, TSH3 wRFLX, FE and TIBC, LIPID #### [place] [id number] [facility] Iron [Mass/volume] in Serum or PlasmaOrdered By: Ela Salmeron on 12-10-2022 Iron [Mass/Vol] 140 ug/dL Normal 40-160 [facility] Comment on above: Order Comment: Reaso n for Exam Atypical chest pain Performed By: #### H SCRP, CBC, CMP, TSH3 wRFLX, FE and TIBC, LIPID #### [facility] [address] [place] [id number] [facility] Iron and TIBC Profileon 11-16 % Iron Saturation 49.3 % Normal 20-50 [facility] Comment on above: Order Comment: Reaso n for Exam Atypical chest pain Performed By: #### H SCRP, CBC, CMP, TSH3 wRFLX, FE and TIBC, LIPID #### [facility] [address] Total Iron Binding Capacity 284 ug/dL Normal 255-450 [facility] Comment on above: Order Comment: Reaso n for Exam Atypical chest pain Performed By: #### H SCRP, CBC, CMP, TSH3 wRFLX, FE and TIBC, LIPID #### [facility] [address] [place] [id number] [facility] Iron binding capacity [Mass/ volume] in Serum or PlasmaOrdered By: Ela Sharpc on 12-10-2022 Iron binding capacity [Mass/Vol] 284 ug/dL 255-450 [facility] Iron saturation [Mass Fracti on] in Serum or PlasmaOrdered By: Ela Sharpc on 12-10-2022 Iron saturation [Mass fraction] 49.3 % 20-50 [facility] Leukocytes [#/volume] correc aristeo for nucleated erythrocytes in Blood by Automated counOrdered By: Ela Salmeron on 12-10-2022 WBC corrected for nucl RBC Auto (Bld) [#/Vol] 8.7 10*3/uL 4.1-10.5 [facility] Leukocytes [#/volume] in Blo od by Automated countOrdered By: Ela Salmeron on 12-10-2022 WBC (Bld) [#/Vol] 8.7 10*3/uL Normal 4.1-10.5 [facility] Comment on above: Order Comment: Reaso n for Exam Atypical chest pain Performed By: #### H SCRP, CBC, CMP, TSH3 wRFLX, FE and TIBC, LIPID #### [facility] [address] [place] [id number] [facility] Lipid Panelon 12-10-2022 LDL Cholesterol,Calculated 81 mg/dL Normal 0-100 [facility] Comment on above: Order Comment: Reaso n for Exam Atypical chest pain Result Comment: LDL ATP III CLASSIFICATION LDL less than 100 mg/dL Optimal LDL 100-129 mg/dL Near or above optimal LDL 130-159 mg/dL Borderline high LDL 160-189 mg/dL High LDL greater than 189 mg/dL Very high Performed By: #### H SCRP, CBC, CMP, TSH3 wRFLX, FE and TIBC, LIPID #### [facility] [address] Triglyceride w/Reflex 168 mg/dL High 35-149 [facility] Comment on above: Order Comment: Reaso n for Exam Atypical chest pain Result Comment: TRIG ATP III CLASSIFICATION TRIG less than 150 mg/dL Normal TRIG 150-199 mg/dL Borderline high TRIG 200-500 mg/dL High TRIG greater than 500 mg/dL Very high Standard traceable to the Center for Disease Conrtrol and Prevention (CDC) test method. Performed By: #### H SCRP, CBC, CMP, TSH3 wRFLX, FE and TIBC, LIPID #### [facility] [address] VLDL CHOLESTEROL 33 mg/dL Normal [facility] Comment on above: Order Comment: Reaso n for Exam Atypical chest pain Performed By: #### H SCRP, CBC, CMP, TSH3 wRFLX, FE and TIBC, LIPID #### [facility] [address] [place] [address] Lymphocytes [#/volume] in Bl ood by Automated countOrdered By: Ela Salmeron on 12-10-2022 Lymphocytes (Bld) [#/Vol] 2.5 10*3/uL Normal 1.00-4.8 [facility] Comment on above: Order Comment: Reaso n for Exam Atypical chest pain Performed By: #### H SCRP, CBC, CMP, TSH3 wRFLX, FE and TIBC, LIPID #### [facility] [address] [place] [address] [place] Lymphocytes/100 leukocytes i n Blood by Automated countOrdered By: Ela Salmeron on 12-10-2022 Lymphocytes/100 WBC (Bld) 28.4 % Normal . [facility] Comment on above: Order Comment: Reaso n for Exam Atypical chest pain Performed By: #### H SCRP, CBC, CMP, TSH3 wRFLX, FE and TIBC, LIPID #### [facility] [address] [place] [address] MCH [Entitic mass] by Automa aristeo countOrdered By: Ela Salmeron on 12-10-2022 MCH (RBC) [Entitic mass] 30.0 pg Normal 27.5-35.2 [facility] Comment on above: Order Comment: Reaso n for Exam Atypical chest pain Performed By: #### H SCRP, CBC, CMP, TSH3 wRFLX, FE and TIBC, LIPID #### [facility] [address] [place] [address] MCHC Auto (RBC) [Mass/Vol]Or dered By: Ela Salmeron on 12-10-2022 MCHC (RBC) [Mass/Vol] 33.7 g/dL 32.5-35.6 [facility] MCV [Entitic volume] by Auto mated countOrdered By: Ela Salmeron on 12-10-2022 MCV (RBC) [Entitic vol] 88.9 fL Normal 83.5-101 [facility] Comment on above: Order Comment: Reaso n for Exam Atypical chest pain Performed By: #### H SCRP, CBC, CMP, TSH3 wRFLX, FE and TIBC, LIPID #### [facility] [address] [place] [address] Neutrophils [#/volume] in Bl ood by Automated countOrdered By: Ela Salmeron on 12-10-2022 Neutrophils (Bld) [#/Vol] 5.1 10*3/uL Normal 1.8-7.7 [facility] Comment on above: Order Comment: Reaso n for Exam Atypical chest pain Performed By: #### H SCRP, CBC, CMP, TSH3 wRFLX, FE and TIBC, LIPID #### [facility] [address] [place] [address] No Panel InformationOrdered By: Ela Salmeron on 12-10-2022 Estimated GFR () > 60 mL/Min [facility] Comment on above: GFR estimated refere nce range: According to KDOQI guidelines, <60 ml/min/1.73m2 is sufficient to diagnose a patient with chronic kidney disease. Pharmacy Creatinine Clearance (Chem N/A [facility] Nucleated erythrocytes [Pres ence] in Blood by Automated countOrdered By: Ela Salmeron on 12-10-2022 Nucleated RBC Auto Ql (Bld) 0.1 /100{WBC} 0-0.5 [facility] Platelet mean volume [Entiti c volume] in Blood by Automated countOrdered By: Ela Salmeron on 12-10-2022 Platelet mean volume (Bld) [Entitic vol] 6.8 fL Normal 6.6-10.1 [facility] Comment on above: Order Comment: Reaso n for Exam Atypical chest pain Performed By: #### H SCRP, CBC, CMP, TSH3 wRFLX, FE and TIBC, LIPID #### [facility] [address] Platelets [#/volume] in Bloo d by Automated countOrdered By: Ela Salmeron on 12-10-2022 Platelets (Bld) [#/Vol] 350 10*3/uL Normal 150-450 [facility] Comment on above: Order Comment: Reaso n for Exam Atypical chest pain Performed By: #### H SCRP, CBC, CMP, TSH3 wRFLX, FE and TIBC, LIPID #### [facility] [address] [place] [address] [place] Protein [Mass/volume] in Ser um or PlasmaOrdered By: Ela Salmeron on 12-10-2022 Protein [Mass/Vol] 6.5 g/dL Normal 6.1-7.9 [facility] Comment on above: Order Comment: Reaso n for Exam Atypical chest pain Performed By: #### H SCRP, CBC, CMP, TSH3 wRFLX, FE and TIBC, LIPID #### [facility] [address] [place] [address] [place] Serum globulin measurement b y calculation (mass/volume)Ordered By: Ela Salmeron on 12-10-2022 Globulin (S) [Mass/Vol] 2.6 g/dL Normal [facility] Comment on above: Order Comment: Reaso n for Exam Atypical chest pain Performed By: #### H SCRP, CBC, CMP, TSH3 wRFLX, FE and TIBC, LIPID #### [facility] [address] Serum or plasma alanine noyola otransferase measurement without P-5'-P (enzymatic activiOrdered By: Ela Salmeron on 12-10-2022 ALT No additional P-5'-P [Catalytic activity/Vol] 13 U/L 10-60 [facility] Serum or plasma albumin/glob ulin mass ratioOrdered By: Ela Salmeron on 12-10-2022 Albumin/Globulin [Mass ratio] 1.5 {ratio} Normal [facility] Comment on above: Order Comment: Reaso n for Exam Atypical chest pain Performed By: #### H SCRP, CBC, CMP, TSH3 wRFLX, FE and TIBC, LIPID #### [facility] [address] [address] Serum or plasma alkaline monica sphatase measurement (enzymatic activity/volume)Ordered By: Ela Salmeron on 12-10-2022 ALP [Catalytic activity/Vol] 57 U/L Normal 32-92 [facility] Comment on above: Order Comment: Reaso n for Exam Atypical chest pain Performed By: #### H SCRP, CBC, CMP, TSH3 wRFLX, FE and TIBC, LIPID #### [facility] [address] [place] [address] Serum or plasma anion gap de terminationOrdered By: Ela aSlmeron on 12-10-2022 Anion gap [Moles/Vol] 11.1 mmol/L Normal 6.0-15.0 [facility] Comment on above: Order Comment: Reaso n for Exam Atypical chest pain Performed By: #### H SCRP, CBC, CMP, TSH3 wRFLX, FE and TIBC, LIPID #### [facility] [address] Serum or plasma aspartate am inotransferase measurement (enzymatic activity/volume)Ordered By: Ela Salmeron on 12-10-2022 AST [Catalytic activity/Vol] 15 U/L Normal 10-42 [facility] Comment on above: Order Comment: Reaso n for Exam Atypical chest pain Performed By: #### H SCRP, CBC, CMP, TSH3 wRFLX, FE and TIBC, LIPID #### [facility] [address] [place] [id number] [facility] Serum or plasma calcium marla urement (mass/volume)Ordered By: Ela Salmeron on 12-10-2022 Calcium [Mass/Vol] 9.1 mg/dL Normal 8.2-10.2 [facility] Comment on above: Order Comment: Reaso n for Exam Atypical chest pain Performed By: #### H SCRP, CBC, CMP, TSH3 wRFLX, FE and TIBC, LIPID #### [facility] [address] [id number] [facility] Serum or plasma chloride amelia surement (moles/volume)Ordered By: Ela Salmeron on 12-10-2022 Chloride [Moles/Vol] 101 mmol/L Normal 95-114 [facility] Comment on above: Order Comment: Reaso n for Exam Atypical chest pain Performed By: #### H SCRP, CBC, CMP, TSH3 wRFLX, FE and TIBC, LIPID #### [facility] [address] Serum or plasma creatinine m easurement with calculation of estimated glomerular filtrOrdered By: Ela Salmeron on 12-10-2022 Creatinine [Mass/Vol] 1.01 mg/dL Normal 0.64-1.27 [facility] Comment on above: Order Comment: Reaso n for Exam Atypical chest pain Performed By: #### H SCRP, CBC, CMP, TSH3 wRFLX, FE and TIBC, LIPID #### [facility] [address] [id number] [facility] Serum or plasma glucose marla urement (mass/volume)Ordered By: Ela Salmeron on 12-10-2022 Glucose [Mass/Vol] 89 mg/dL Normal 70-100 [facility] Comment on above: ADA recommended refe rence rangeRandom Glucose Reference Range is dependent on time and content of last meal. Glucose of more than 200 mg/dL in a nonstressed, ambulatory subject supports the diagnosis of Diabetes Mellitus. Order Comment: Reaso n for Exam Atypical chest pain Result Comment: [place] Glucose Reference Range is dependent on time and content of last meal. Glucose of more than 200 mg/dL in a nonstressed, ambulatory subject supports the diagnosis of Diabetes Mellitus. ADA recommended reference range Performed By: #### H SCRP, CBC, CMP, TSH3 wRFLX, FE and TIBC, LIPID #### [facility] [address] Serum or plasma high density lipoprotein (HDL) cholesterol measurementOrdered By: Ela Salmeron on 12-10-2022 Cholesterol in HDL [Mass/Vol] 31 mg/dL Normal 29-71 [facility] Comment on above: HDL CHOL ATP-III CLA SSIFICATION Cardiovascular RiskHDL > or equal to 60 mg/dL LOWHDL < 40 mg/dL HIGH Order Comment: Reaso n for Exam Atypical chest pain Result Comment: HDL CHOL ATP-III CLASSIFICATION Cardiovascular Risk HDL > or equal to 60 mg/dL LOW HDL < 40 mg/dL HIGH Performed By: #### H SCRP, CBC, CMP, TSH3 wRFLX, FE and TIBC, LIPID #### [address] Serum or plasma potassium me asurement (moles/volume)Ordered By: Ela Salmeron on 12-10-2022 Potassium [Moles/Vol] 4.4 mmol/L Normal 3.5-5.1 [facility] Comment on above: Order Comment: Reaso n for Exam Atypical chest pain Performed By: #### H SCRP, CBC, CMP, TSH3 wRFLX, FE and TIBC, LIPID #### [address] Serum or plasma sodium measu rement (moles/volume)Ordered By: Ela Salmeron on 12-10-2022 Sodium [Moles/Vol] 135 mmol/L Low 136-146 [facility] Comment on above: Order Comment: Reaso n for Exam Atypical chest pain Performed By: #### H SCRP, CBC, CMP, TSH3 wRFLX, FE and TIBC, LIPID #### [facility] [address] Serum or plasma total biliru bin measurement (mass/volume)Ordered By: Ela Salmeron on 12-10-2022 Bilirubin [Mass/Vol] 0.8 mg/dL Normal 0.3-1.2 [facility] Comment on above: Order Comment: Reaso n for Exam Atypical chest pain Performed By: #### H SCRP, CBC, CMP, TSH3 wRFLX, FE and TIBC, LIPID #### [facility] [address] Serum or plasma total carbon dioxide measurement (moles/volume)Ordered By: Ela Salmeron on 12-10-2022 CO2 [Moles/Vol] 27.3 mmol/L Normal 22.0-30.0 [facility] Comment on above: Order Comment: Reaso n for Exam Atypical chest pain Performed By: #### H SCRP, CBC, CMP, TSH3 wRFLX, FE and TIBC, LIPID #### [facility] [address] Serum or plasma total choles terol/high density lipoprotein (HDL) cholesterol mass ratOrdered By: Ela Salmeron on 12-10-2022 Cholesterol.total/Choles terol in HDL [Mass ratio] 4.7 {ratio} Normal <5.0 [facility] Comment on above: Order Comment: Reaso n for Exam Atypical chest pain Performed By: #### H SCRP, CBC, CMP, TSH3 wRFLX, FE and TIBC, LIPID #### [facility] [address] Serum or plasma urea nitroge n measurement (mass/volume)Ordered By: Ela Salmeron on 12-10-2022 Urea nitrogen [Mass/Vol] 10 mg/dL Normal 9-23 [facility] Comment on above: Order Comment: Reaso n for Exam Atypical chest pain Performed By: #### H SCRP, CBC, CMP, TSH3 wRFLX, FE and TIBC, LIPID #### [facility] [address] TSH DL <= 0.005 mIU/L QnOrde red By: Ela Salmeron on 12-10-2022 TSH Qn 1.02 m[IU]/L 0.45-5.33 [facility] Thyroid Stim Hormone w/Rflxo n 12-10-2022 Thyroid Stim Hormone w/Rflx 1.02 u[iU]/mL Normal 0.45-5.33 [facility] Comment on above: Order Comment: Reaso n for Exam Atypical chest pain Result Comment: PERF ORMED BY: [facility] [address] [place] [address] PATHOLOGIST MASTER [employer] YACHT KAIA ORELLANA M.D. Performed By: #### H SCRP, CBC, CMP, TSH3 wRFLX, FE and TIBC, LIPID #### [facility] [address] Triglyceride [Mass/volume] i n Serum or PlasmaOrdered By: Ela Salmeron on 12-10-2022 Triglyceride [Mass/Vol] 168 mg/dL 35-149 [facility] Comment on above: TRIG ATP III CLASSIF ICATIONTRIG less than 150 mg/dL NormalTRIG 150-199 mg/dL Borderline highTRIG 200-500 mg/dL High TRIG greater than 500 mg/dL Very highStandard traceable to the Center for Disease Conrtrol and Prevention (CDC) test method. Coding Summary.on 04-16-2021 Coding Summary. CD:[id number] Gh 0bWw+PGhlYWQ+NS1ATMTrX 01owVOruL1RN8cKAM1QKSS FHUSNGA0ODV7bxBV3EMrxD 2VybiAv GrvyzHVoKY55UDx2RES5oQ fqYNhlbX3esEKdX8w7BuPs KP87zG20BEmhWCUjTiD3Dm ZpbjsgbWFy Z5zmPnIrjMVkJqi+PHRhYm xlIHdpZHRoPScxMDAlJyBz uGdiPE3nOy9vSPEuGLTytL xhcHNlOiBj h4azOINjUAclXC0ihGaaO1 KvnTF3QDUvw5t5Dy57sHI+ MFSdECZ9oBqzLMknx777Rt Lpp3ntWQH2 oNGlUDlkESW2V02tz2V0OW NuSZLmXYR4iDK6gW5hcHpd qbjwD5DbeAEfMsB5KLX1uV OepD3pwCef tzsckC0eVhc+Z06LTO0GQU GNWF2MRwn7Z0AsOsvltQD+ NT66JQMqKT13gJSiqBWrc4 ddlXq6VhZk EQSpOYM7fObbVImmw0FuKK XpU75qyGEnk1H2RFDdjSqe eRJfZiMdbWS0yY9hCJnxoa fbf9iblvhl Fujws9eckj67dH20W07aYK vvGOQhZNC8TBZkIVDddJoj jw0jeP3jOx4+RGhcy5the9 wgsFm2SsCg BEEexoYlnObyYKA2e3GzTu 47P1KjbYktt1XpPfl2sp94 iPAkh9U9sOA1WOohRSJvyJ 4dYBsuVeW9 BWBuJcZxcH17rDJeNQriSa 5ojUvjiKkqXI4wZFHissms CZKyrC0lSHHbuKDrqTyeIE 4wNTBpbjtm h549HrTsHBV2HPNcxLEyK0 PxmY7kQyWtHJOmAIIwT3Pk vUFsWZjlN863PFbeAxA3BY SsqiTxV0Yi PSApaDbdWpV3n6S4Zn6Nr5 XahlotJEZ4AQviRLN6EiQk BoSbZqD1J0EoQos6AVYvoS xsBF0tB9Ya MREbwmvqaomooBB3WVWeBI IxxF93jQGkBYtmFs7zn5V1 w127VRGiZMWjkW36Rb9wfA ogMTBwdCBU rI4xdzkjq2eudbdjNyCkFB JrIBt6NWz3BZAsqBtqDaXf DFI0HqK0QLF8gSHlfU6utH cvqtgzkR8r Oyc+U21xoM0gJWG3VBW8ms xjMTJuvuCxGG09PL16U6Bt PjwvdGFibGU+PGRpdiBzdH hoNT0lKlAh o5hnk1UqKBiaD1RrPWIeIS snBya3PCQcLCH6aSV4yB6u VAXhPRcbq9W2oBO7V7Lnbs Pqvw8ts9qw ZUCjOUdvO31qeQFaj0H4PQ ExqEG1EZVybQivJuFpiA12 Oyc+LILecPjxa2JgUybwn7 mlv7vjbNh2 JrXjXTBnoiPyyTelVJC7w0 PwIu23Z94zQTydBPWkIPQm CCIeUZIvjMayhx2obU2rXf 8+PGNvbCB3 jCL2fN5mYTAxXhT1ZIabV1 19ZyTqiIEoGnicn9ikb6et fCq4GaXlXVOxtwQnzOnpGY B9w8CuLt00 W61nDWoqKOBdLIPlZARmOG XeaBnism9wzL8kHi0+PC9j y5ltih81sZ29jXF+PHRkIH Z7xEgcRLxn NBKooN5sKSskFhB8LZSmJl VggF32xZWrYJvxEp2cmAac zHzhTR9wVYNzhoepc680Ym Vvt1liWRMc dOTsKDfcOHS0U58fg0U4ST WhPJCfSWG3cMR4wF8ijAgt bjogbGVmdDsgdmVydGljYW xcCDkiK615 IHRvcDsnPlBhdGllbnQgTm KbRTf6W2KxZtk6XOZgsTnb IF7nhDUiFForPk2rvIgmxA nkRU1bTJTe sayxt096CqSbo1ofGNExqH DsUJyaHQV3L22cv2Z0FATv MZAdKLY3aXE5yB6hhSvbdv ogbGVmdDsg xkVboJrgZEayRAgoX799XN RvcDsnPkJpcnRoIERhdGU6 WS86LG24dNYck0R6qHA2M2 BhZGRpbmct ybtcaNG0HCMbXDVydL26Nr 5kuPhzVn4eISVlLZN7MEVh jTQtJ0UiiB3mRhQsPQHyDI GhN7YuiNGf OZziR911ZHbsZxE2MIPsuy OoU9MfBXYefXllCaR9c5J1 Qf3RR6A6MR26EN09aSLny5 T9kRF1S8Li VDRkkipnfvbafGC1VRBuJO LzoK32Il6jlHhfMh7dDPUc PDH5ZXQteQIlL8BirD0mTs AjMDAwMDAw P4VaiVOtZFxqC401BOdwTo U0WAIiveFcY9LyHNEuoAng LbV7b2W8Ga4KLRu9QZ49ZS 13sHImg2H5 fQS8J7BcGHTrhjswxvmgsF P0DAEqKQHafX13Ff1qySog Fc9sOTQpNCC8LLZgdMTgC2 VdlK4nFsWv SJInNSHvM8MlzXKwXEygY4 51QAjwLvR6RQPwprJkZ6Qt DORkxTcxXpC1p9W8Fq1TDI NpCK37FVU2 gHW8NI71EH06Y4WvTarnpS FibGU+PHRhYmxlIHdpZHRo IPxqTNIuVsXqfNfgZJ5tMo 9yZGVyLWNv jGgoePFvImOqw0tiEGAhTE xbYQ6rjLlzU2IajJD9WRHh e5n3Qr49P65vQ9DqmEU+PG EkrIT4kFT8 bN3pGaNhHkB3NWuqG327Uy ZnfNPaNxzzn5sux1rxnEf8 AvJ3RPJksjQbyHloDSU8v7 OmMp64B21b IHdpZHRoPSIxNSUiIHZhbG scsc8ouT6iEo1+PGNvbCB3 dDV1oU0gYqNyUiY1CJxeW7 49InRvcCIv Navcn8ehg2fixOx9LdKaIY GsskVdiKpxRMK7v5HjHd42 H2GtgMjlv9TvIod3ei07zB Swv1V9nDC2 R5OoFEZpviwsnYHdjQplQU 0cAWYycxuxAPJsmP2dOWTn O0l5RnGhIkU2ONewX5Ibqh F2KBFayTBc LKmbIYD0C90dh0P0LMLhQJ ZlOZC2fGY2fK0txMctbipf bGVmdDsgdmVydGljYWwtYW gyT503NZOr iUmrKHWwtK3lJACayJZezM wvIR8cHBVtxhcsRvsKUHgr BnCoTDZWWiNBCHRDCM72VR 70iWTzz6L1 dTL6E8DpUJFjenujwatnxH U8EBDzLZBmkQ33sHNkOBfk Sx8gl3O5c460ESSkXLNokK 36Ll4xhWts OCPixNGNtS6qgubjf7nnuj mvEgLmHQRlWCe1QHa7YSEl zAaoKjObWKQ1MnD6CDT4nT AulR7kiLjk hzdoeY3yXvt+MTAvMjIvMT q0PxhmaYF+UGTwVUB5eQtf OJyaZSUogQ9lATQsK6h3Hn DaXeW4QBpf O6ZsKBXbcoymOy23zI9rXw HeVpV9YZuaU9JennW7XWCi pZJhTDfdMYS3K22dh9R4RW MwMDAwMDA7 rOX4kC4rxBnakgpeaWVvlR cdmmWanJwzZTerVUcdQ704 PXPwoWixJxP8GAktYJLvHA 34WV96hTMi s2H6jPS9O0XbJDJyfqneus yayVC3ETFlWJUiyM26jDSj KOlhUy6ie6O5p280YFXvVO HjgL82Ek0p mPgfVXWfxTXVrU0zibmuu4 odnpddLpUiMLPbXCb3YOw4 NPRfvYttNcVsKGD6EgD2RC H1bKKchP6o uVfibwnxhM2eWph+TWFsZT wvdGQ+XQSvIHN6mMtaSQjd BQQkhY4zWHWoV7f2WlYlZr C0CEofS9Im FJMkdxqhAg76cZ9nLpLlQy N4VEefI4StcaX5TCAfhDCx RXhzPFB7B15ay2G3XSDsAS GoGTV8cLU4 yB0vhIpkuwnycAEbrKtssg XceRxuFZelSXjmN073LMRy mYhuAfXfZUIcPH4anOyjlQ Q+JS17dt96 B0IhBvhtAxc5ZKOaGMP5wB C4oM1bOGZnFXesx9L5yVW1 M0QquhAqcw2nx6goGPExAW csF68rlPTp v1V9GQAdkYF8OBHjqDzfTo JdvH60Ubw+MBQcrAipv9Pq Hncrg2mir9sigGm0OiTsXA IgdmFsaWdu WFN9e8SaHp21O79iUCwzBX HrEUUeILBbOSKsuDunen3x oX0fFj3+RADugOT9mTQ0vE 6fJtQvAsM7 GRmrV108PxIwwJXfSzxfv0 mpe3theDd9GfBvBFFjouBm hCsmYYD0a4DnJd56H0FjpU fer1PzRsk6 we51pMQth2C3kPC9I6KbQT EovefxgEZpeOtkQT7tIVYy vxprAWDtpP9kLHYeO3y9Fc RqByF8ZKzk I4MyntF5CPTbuTEeCBBabH YIkV9isixiw7zibigpIsPs RVVaKGm0HVz1LFQgiFppKi NeIUC4LsN4 SYC2uDVrcE1kxBeyewpguV 9wOyc+YAz9p2obmGDaET6r sDT5TG73DS54bHQbx7W6vD Q3E4KnLHUm uwrfvgfwvPF8GSZiYGHqkO 14Xd2qmXlxZj7nTCCkFDC1 JVZctNDxE8YcpX9yLdKaMI AfGRDtR1Im eVAlUEriC817NFxiBwE3CQ CyxbGbF8BjUFHxvCbaVhB2 m9I6Zm4IOQ63QU93QE06yK Faj9S8xUW6 E7MsIXDlztxbctitbWA8KJ HeXGVkhH06Zd9oaVdbLd7x NLQiBFY1SHGeoMTfY6UyrS 9yOiAjMDAw HFFwY0PpeYQtGJvyR835QK eaFsV9EZYykqKvK2QxKQYk wOqqDlV7x7H0Oy7SPc45MD 78NM04pETv j7C4sQG0H4CsKGWztndhqy fdvDN6HFWtADEjrW70Ly4i mVvzCq7bJDJkYAY9XCUafK FkH7TkcK0w KhZcMGXsGNVxQ1ZaoPRnZK jdC723ZDznZnQ4PMZtgwJu K0PuDDDkuIncKsU1u2F3Xa 8YVBsdeby9 N9AcXtfllMM+XH74JOEmTH 92lPBdjPJrg3avjWn9CvSw NOKaFDJ7dKsxGJwjl0FkZB TfI92tbUOf c2U6 (more content not included)... Normal [facility] Consent for Treatmenton 03-16 Consent for Treatment [id number] 0CD:127 Normal [facility] Discharge Instructionson Discharge Instructions [id number]. [id number]:127 Normal [facility] ED Clinical Summaryon 2020 ED Clinical Summary [address] [address] ED Clinical Summary Person Information Name: [facility] Age[facility] 40 Years : 1980 Sex: Male Language: Maori PCP: KATHERINE GIMENEZ MD Marital Status: Phone: [phone] Visit Id: Visit Reason: Dental pain; mouth pain..patient and visitor are deaf Speciality: Acuity: 4 Enc Type: Emergency Med Service: Emergency Arrival: 04/06/2021 10:20:56 Discharge: 04/06/2021 11:11:29 LOS: 000 00:51 Checkin: 04/06/2021 10:20:56 Checkout: 04/06/2021 11:11:29 Dispo Type: Home (Routine DC) EVENTS: Event Name Event Status Request Date/Time Start Date/Time Complete Date/Time Arrive Complete 04/06/2021 10:20:56 04/06/2021 10:20:56 04/06/2021 10:20:56 Document Home Meds Request 04/06/2021 10:20:56 Triage Complete 04/06/2021 10:20:56 04/06/2021 10:33:00 04/06/2021 10:33:00 Dr Exam Complete 04/06/2021 10:33:22 04/06/2021 10:33:22 04/06/2021 10:33:22 Registration Complete 04/06/2021 10:33:22 04/06/2021 10:33:27 04/06/2021 10:38:38 Bed Assign Complete 04/06/2021 10:33:27 04/06/2021 10:33:27 04/06/2021 10:33:27 RN Exam Complete 04/06/2021 10:33:27 04/06/2021 10:49:41 04/06/2021 10:49:41 Reg Complete Request 04/06/2021 10:38:38 Meds Admin Request 04/06/2021 10:48:13 Discharge Complete 04/06/2021 10:51:55 04/06/2021 11:11:37 04/06/2021 11:11:37 Transfer Complete 04/06/2021 11:11:37 04/06/2021 11:11:37 04/06/2021 11:11:37 ADDRESS: [address] [place] [phone] PHYS DOC NOTES: MEDICAL INFORMATION: Prescriptions Given: New Medications [facility], [address] [place], [place] [id number], [phone] clindamycin (clindamycin 150 mg Cap) 2 Capsules By Mouth every 6 hours for 7 Days. Refills: 0. naproxen (Naprosyn 500 mg Tab) 1 Tablets By Mouth 2 times a day as needed Pain. Refills: 0. Medications to Continue Taking That Have Changed [facility] 1985, [address] [place], [place] [id number], [phone] START: acetaminophen-hydrocod one (Flynn 325 mg-5 mg oral tablet) 1 Tablets By Mouth every 6 hours as needed as needed for pain. Refills: 0. Other Medications START: acetaminophen-hydrocod one (Flynn 325 mg-5 mg oral tablet) 1 Tablets By Mouth every 4 hours as needed for pain. Refills: 0. Medications to Continue with No Changes Other Medications ondansetron (Zofran ODT 8 mg Tab-Dis) 1 Tablets By Mouth every 8 hours as needed Nausea. Refills: 1. PATIENT EDUCATION INFORMATION: Instructions: Dental Pain; Dental Caries, Adult Follow up: With: Address: When: Dental: [facility] [phone] In 3 days 04/09/2021 With: Address: When: Dental: [facility] [phone] In 3 days 04/09/2021 With: Address: When: Dental: [facility] [phone] In 3 days 04/09/2021 Comments: You can call the dental clinics provided to you to see if they can see you sooner than your scheduled appointment with dentist. Return to the emergency room if your pain gets worse, fever, swelling or any new symptoms. With: Address: When: KATHERINE GIMENEZ [address] [place] [id number] Business (1) In 3 days DIAGNOSIS: 1:Dental caries; 2:Pain, dental Normal [facility] ED Note-Physicianon 04-06-20 ED Note-Physician Basic Information Time Seen: Rickey ArguetaDonnell 04/06/2021 10:33 Chief Complaint pt. presents to the ed with c/o dental pain that started a week ago. pt. is in too much pain and couldn't wait until his dentist appointment. History of Present Illness The patient is 40-year-old male deaf who presented to the emergency room with dental pain. The patient points to the left upper jaw. The history is obtained by writing. The patient states he has been having this pain for the past 1 week and has gotten worse. He rates it 10 out of 10. He denies any fever denies any chills. Denies any nausea, vomiting. The patient states that he has an appointment with a dentist next month. The patient denies any other associated symptoms. Review of Systems Additional ROS info: Except as noted in the above Review of Systems and in the History of Present Illness all other systems have been reviewed and are negative or noncontributory. Physical Exam Vitals & Measurements T: 36.8 ?C (Oral) HR: 67(Peripheral) RR: 18 BP: 137/85 SpO2: 99% HT: 185.0 cm HT: 185 cm WT: 81.9 kg WT: 81.9 kg BMI: 23.93 General: alert, no acute distress Skin: warm, dry Head: no trauma, normocephalic Neck: Trachea midline, no tenderness, no soft tissue swelling under the chin Eye: normal conjunctiva, sclera clear ENMT: Oral mucosa moist, no pharyngeal erythema or exudate, poor dentition. Left upper second premolar with caries, no swelling around the gum. Tenderness with tongue blade percussion. Cardiovascular: regular rate and rhythm, normal peripheral perfusion, no murmur, no edema Respiratory: Lungs CTA, respirations non labored, breath sounds equal Extremities: no deformity, no trauma Neurological: Alert and oriented, no focal neuro deficits Psychiatric: cooperative, affect appropriate for age, Medical Decision Making The patient presented with dental pain. He does have dental caries. There is no swelling around the gum. Vital signs are stable. Will discharge patient home with antibiotic, Flynn for severe pain and Naprosyn. List of dental clinics was provided to see if they can see him sooner than his scheduled appointment with a dentist. The OARRS report reviewed. There is no red flags for narcotic abuse. The patient is instructed to return to the emergency room if his pain gets worse, swelling or any new symptoms Assessment/Plan 1. Dental caries (K02.9: Dental caries, unspecified) Ordered: acetaminophen-hydrocod one, 1 tab(s), Oral, q6hr as needed for pain, 7 tab(s), Refill(s) 0, [facility], 185, cm, 04/06/21 10:33:00 EDT, Height/Length Dosing, 81.9, kg, 04/06/21 10:33:00 EDT, Weight Dosing 2. Pain, dental (K08.8: Other specified disorders of teeth and supporting structures) Orders: acetaminophen-hydrocod one, 1 tab(s), Tab, Oral, Once, Stop date 04/06/21 10:47:00 EDT, STAT, Start date 04/06/21 10:47:00 EDT benzocaine topical, 1 benny, Gel, Topical, QID, STAT, Start date 04/06/21 10:47:00 EDT clindamycin, 300 mg = 2 cap(s), Oral, q6hr, X 7 day(s), # 56 cap(s), Refills(s) 0, Pharmacy: [facility] 1985, 185, cm, 04/06/21 10:33:00 EDT, Height/Length Dosing, 81.9, kg, 04/06/21 10:33:00 EDT, Weight Dosing lidocaine topical, 400 mg, 20 mL, Soln-Oral, Oral, Once, Stop date 04/06/21 10:47:00 EDT, STAT, Start date 04/06/21 10:47:00 EDT naproxen, 500 mg = 1 tab(s), Oral, BID, PRN Pain, # 20 tab(s), Refills(s) 0, Pharmacy: [facility] 1985, 185, cm, 04/06/21 10:33:00 EDT, Height/Length Dosing, 81.9, kg, 04/06/21 10:33:00 EDT, Weight Dosing Disposition Plan Patient Discharge Condition Stable Discharge Disposition Discharged home Discharge Prescription List Prescriptions clindamycin 150 mg Cap, 300 mg= 2 cap(s), Oral, q6hr Naprosyn 500 mg Tab, 500 mg= 1 tab(s), Oral, BID, PRN Flynn 325 mg-5 mg oral tablet, 1 tab(s), Oral, q6hr, PRN Follow-up With When Contact Information Dental: [facility] [phone] In 3 days 04/09/2021 EDT Additional Instructions: Dental: [facility] [phone] In 3 days 04/09/2021 EDT Additional Instructions: Dental: [facility] [phone] In 3 days 04/09/2021 EDT Additional Instructions: You can call the dental clinics provided to you to see if they can see you sooner than your scheduled appointment with dentist. Return to the emergency room if your pain gets worse, fever, swelling or any new symptoms. KATHERINE GIMENEZ In 3 days [address] [id number] [facility] (1) Additional Instructions: Patient Education Dental Pain Dental Caries, Adult Problem List/Past Medical History Ongoing Smoker Historical Deaf mutism Inguinal hernia Umbilical hernia Procedure/Surgical History History of repair of inguinal hernia. Medications Inpatient Hurricaine 20% mucous membrane gel, 1 benny, Topical, QID lidocaine Viscous Top 2% Ondina 15 mL, 400 mg= 20 mL, Oral, Once Flynn 5/325 Tab, 1 tab(s), Oral, Once Home clindamycin 150 mg Cap, (more content not included)... Normal [facility] Comment on above: Result Comment: Elec tronically Signed By: Rickey Argueta, Donnell Rios\.br\Date and Time Signed: 04/06/21 10:57 EDT ED Patient Education Noteon 04-06-2021 ED Patient Education Note Dentistry Dental Pain Dental pain may be caused by many things, including: ? Tooth decay (cavities or caries). Cavities expose the nerve of your tooth to air and to hot or cold temperatures. This can cause pain or discomfort. ? Abscess or infection. A dental abscess is a collection of pus from a bacterial infection in the inner part of the tooth (pulp). It usually occurs at the end of the root of a tooth. ? Injury. ? An unknown reason (idiopathic). Your pain may be mild or severe. It may occur when you are: ? Chewing. ? Exposed to hot or cold temperatures. ? Eating or drinking sugary foods or beverages, such as soda or candy. Your pain may be constant, or it may come and go without cause. Follow these instructions at home: Watch your dental pain for any changes. The following actions may help to lessen any discomfort that you are feeling: Medicines ? Take vhdp-oty-mavnpyx and prescription medicines only as told by your health care provider. ? If you were prescribed an antibiotic medicine, take it as told by your health care provider. Do not stop taking the antibiotic even if you start to feel better. Eating and drinking ? Avoid foods or drinks that cause you pain, such as: ? Very hot or very cold foods or drinks. ? Sweet or sugary foods or drinks. Managing pain and swelling ? Apply ice to the painful area of your face: ? Put ice in a plastic bag. ? Place a towel between your skin and the bag. ? Leave the ice on for 20 minutes, 2?3 times a day. Brushing your teeth ? To keep your mouth and gums healthy, use fluoride toothpaste to brush your teeth twice a day. Floss once a day. ? Use a toothpaste made for sensitive teeth if directed by your health care provider. ? Wapwallopen your teeth with a soft-bristled toothbrush. General instructions ? Do not apply heat to the outside of your face. ? Gargle with a salt-water mixture 3?4 times a day or as needed. To make a salt-water mixture, completely dissolve ??1 tsp of salt in 1 cup of warm water. ? Keep all follow-up visits as told by your health care provider. This is important. ? Apply ice to the outside of your jaw if there is swelling. Do not put ice directly on the skin. Contact a health care provider if: ? Your pain is not controlled with medicines. ? Your symptoms get worse. ? You have new symptoms. Get help right away if you: ? Are unable to open your mouth. ? Are having trouble breathing or swallowing. ? Have a fever. ? Notice that your face, neck, or jaw is swollen. Summary ? Dental pain may be caused by many things, including tooth decay and infection. ? Your pain may be mild or severe. ? Take xvnv-syp-tdvlxdy and prescription medicines only as told by your health care provider. ? Watch your dental pain for any changes. Let your health care provider know if symptoms get worse. This information is not intended to replace advice given to you by your health care provider. Make sure you discuss any questions you have with your health care provider. Document Released: 11/01/2006 Document Revised: 02/27/2020 Document Reviewed: 09/22/2018 [employer] Patient Education ? 2019 [employer] Dental Caries, Adult Dental caries are spots of decay (cavities) in the outer layer of your tooth (enamel). The natural bacteria in your mouth produce acid when breaking down sugary foods and drinks. When you eat or drink a lot of sugary foods and liquids, a lot of acid is produced. The acid destroys the protective enamel of your tooth, leading to tooth decay. It is important to treat your tooth decay as soon as possible. Untreated dental caries can spread decay and lead to painful infection. Brushing regularly with fluoride toothpaste (oral hygiene) and getting regular dental checkups can help prevent dental caries. What are the causes? Dental caries are caused by the acid that is produced when bacteria break down sugary or acidic foods and drinks. What increases the risk? This condition is more likely to develop in young adults. This condition is also more likely to develop in people who: ? Drink a lot of sugary liquids, including alcoholic drinks, such as champagne. ? Eat a lot of sweets and carbohydrates. ? Drink water that is not treated with fluoride. ? Have poor oral hygiene. ? Have deep grooves in their teeth. ? Take certain medicines that decrease saliva. What are the signs or symptoms? Symptoms of dental caries include: ? White, brown, or black spots on the teeth. ? Pain. ? Swollen or bleeding gums. How is this diagnosed? Your dentist may suspect dental caries from your signs and symptoms. The dentist will also do an oral exam. This may include X-rays to confirm the diagnosis. Sometimes lights, a thin probe, and dyes are used to find dental caries (using electrical conductivity or using laser reflection). How is this treated? (more content not included)... Normal [facility] ED Patient Summaryon 021 ED Patient Summary [address] [address] Patient Discharge Instructions Person Information Name: KELI HATHAWAY Jr Age: 40 Years Arrival Date: 04/06/2021 10:20:56 Discharge Diagnosis: 1:Dental caries; 2:Pain, dental Primary Care Physician: KATHERINE GIMENEZ MD Provider Information Primary Provider: Donnell Lang M.D. Advanced [employer] Sales Associate:None The exam and treatment you received in the Emergency Department were for an urgent problem and are not intended as complete care. It is important that you follow up with a doctor, nurse practitioner, or physician?s reference assistant for ongoing care. If your symptoms become worse or you do not improve as expected and you are unable to reach your usual health care provider, you should return to the Emergency Department. We are available 24 hours a day. KELI HATHAWAY Jr has been given the following list of patient education materials, prescriptions and follow-up instructions: Follow-up Instructions: With: Address: When: Dental: [facility] [phone] In 3 days 04/09/2021 With: Address: When: Dental: [place] [phone] In 3 days 04/09/2021 With: Address: When: Dental: [facility] [phone] In 3 days 04/09/2021 Comments: You can call the dental clinics provided to you to see if they can see you sooner than your scheduled appointment with dentist. Return to the emergency room if your pain gets worse, fever, swelling or any new symptoms. With: Address: When: KATHERINE GIMENEZ [address] [place] [id number] [facility] (1) In 3 days In the event that this physician does not participate in your insurance network, please consult with your insurance company to find a nearby participating provider. Patient Education Materials: Dental Pain; Dental Caries, Adult A MESSAGE TO ALL PATIENTS REGARDING OPIOIDS PRESCRIPTION OPIOIDS: WHAT YOU NEED TO KNOW Prescription opioids can be used to help relieve qepqjvan-ps-uorjev pain and are often prescribed following a surgery or injury, or for certain health conditions. These medications can be an important part of the treatment but also come with serious risks. It is important to work with your healthcare provider to make sure you are getting the safest, most effective care. WHAT ARE THE RISKS AND SIDE EFFECTS OF OPIOID USE? Prescription opioids carry serious risks of addiction and overdose, especially with prolonged use. An opioid overdose, often marked by slowed breathing, can cause sudden . The use of prescription opioids can have a number of side effects as well, even when taken as directed: ? Tolerance?meaning you might need to take more of the medication for the same pain relief ? Physical dependence?meaning you have symptoms of withdrawal when a medication is stopped ? Increased sensitivity to pain ? Constipation ? Nausea, vomiting, and dry mouth ? Sleepiness and dizziness ? Confusion ? Depression ? Low levels of testosterone that can result in lower sex drive, energy, and strength ? Itching and sweating RISKS ARE GREATER WITH: ? History of drug misuse, substance use disorder, or overdose ? Mental health conditions (such as depression or anxiety) ? Sleep apnea ? Older age (65 years and older) ? Avoid alcohol while taking prescription opioids. Also, unless specifically advised by your health care provider, medications to avoid include: ? Benzodiazepines (such as Xanax or Valium) ? Muscle relaxants (such as Soma or Flexeril) ? Hypnotics (such as Ambien or Lunesta) ? Other prescription opioids KNOW YOUR OPTIONS Talk to your health care provider about ways to manage your pain that don?t involve prescription opioids. Some of these options may actually work better and have fewer risks and side effects. Options may include: ? Pain relievers such as acetaminophen, ibuprofen, and naproxen ? Some medication that are also used for depression or seizures ? Physical therapy and exercise ? Cognitive behavioral therapy, a psychological, goal-directed approach, in which patients learn how to modify physical, behavioral, and emotional triggers of pain and stress. IF YOU ARE PRESCRIBED OPIOIDS FOR PAIN: ? Never take opioids in greater amounts or more often than prescribed. ? Follow up with your primary health care provider. o Work together to create a plan on how to manage your pain. o Talk about ways to help manage your pain that don?t involve prescription opioids. o Talk about any and all concerns and side effects. ? Help prevent misuse and abuse o Never sell or share prescription opioids. o Never use another person?s prescription opioids. ? Store prescription opioids in a secure place and out of reach of others (this may include visitors, children, friends, and family). ? Safely dispose of unused prescription o (more content not included)... 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 Performed By: #### U CGP ####[facility] [id number] [place] [address] Gonorrhea Probe, Ur Negative Normal NEG [facility] Comment on above: Result Comment: NEIS SERIA GONORRHOEAE DNA not detected by nucleic acid amplification.[facility] [address] [place] [address] Performed By: #### U CGP ####[facility] [id number] [place] [address] Encounters Encounter Date Encounter Type Care Provider Facility Start: 03-24-2023 End: 03-25-2023 ambulatory ELA SPASI Facility:[facility] Start: 12-23-2022 End: 12-24-2022 ambulatory ELA SPASI Facility:[facility] Start: 12-10-2022 End: 12-10[facility] Start: 12-10-2022 End: 12-10-2022 Departed 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 Start: 01-26-2018 End: 01-27-2018 Ambulatory BETH MARTINEZ [facility] Procedures Date Procedure Procedure Detail Performing Clinician Start: 01-26-2018 C.TRACHOMATIS N.GONO RRHOEAE DNA, URINE BETH MARTINEZ Payers Date Payer Category Payer Self-pay [id number] 2016 Medicare [id number] 1980 Unknown [id number] 1980 Unknown [id number] 1957 Medicaid [id number] 1957 Medicare [id number] Unknown [id number] Social History Date Type Detail Facility Tobacco smoking stat [facility] Unknown if ever smoked [facility] Work Phone: Start: 1980 Sex Assigned At Male F [facility] Evaluation note Note Date & Type Note Facility Evaluation note No assessment information availa ble [facility] Work Phone: Summary Purpose Family History No Family History Records FoundNo Family History Records FoundNo Family History Records FoundNo Family History Records FoundNo Family History Records Found Advance Directives No Advanced Directives Records Found Advance Directive Response Recorded Date/ Time Advance Directives No October 10:17am Chief Complaint and Reason for Visit Chief Complaint Atypical chest pain Additional Source Comments (unrecognized sect ion and content) No Status Records FoundNo Status Records FoundNo Status Records FoundNo Status Records FoundNo Status Records Found INFORMATION SOURCE (unrecogn ized section and content) DATE CREATED AUTHOR 05/06/2018 [facility] DATE CREATED AUTHOR AUTHOR'S ORGANIZ ATION 05/19/2018 [facility] DATE CREATED AUTHOR AUTHOR'S ORGANIZ ATION 04/30/2021 [facility] DATE CREATED AUTHOR AUTHOR'S ORGANIZ ATION 01/16/2023 [facility] DATE CREATED AUTHOR AUTHOR'S ORGANIZ ATION [facility]20[facility] (unrecognized sec tion and content) Team Status: Inactive Member Role Status Dates LIBBY Dykes Attending Provider Active Goals (unrecognized section and content) Goals may be documented in a n alternate section FOR RECORDS PERTAINING TO PATIENTS WHO ARE OR HAVE BEEN ENROLLED IN A CHEMICAL DEPENDENCY/SUBSTANCEABUSE PROGRAM, SOME INFORMATION MAY BE OMITTED. This clinical summary was aggregated from multiple sources. Caution should be exercised in using it in the provision of clinical care. This summary normalizes information from multiple sources, and as a consequence, information in this document may materially change the coding, format and clinical context of patient data. In addition, data may be omitted in some cases. CLINICAL DECISIONS SHOULD BE BASED ON THE PRIMARY CLINICAL RECORDS. [facility] [employer] [facility]. provides no warranty or guarantee of the accuracy or completeness of information in this document.
== END 2024-02-07 08:45 | disposition home or self-care (01) ==
LOC: EC 08:45
PROVIDERS: Visit Provider Orthopaedic Surgery
DX: M79.641 Pain in right hand (principal); M25.441 Effusion, right hand
CPT/HCPCS: 73130

== ENCOUNTER 2024-05-01 15:05 | Emergency (ER) | payer MEDICARE, MEDICAID, SELFPAY ==
--- OUTSIDE RECORDS SUMMARY | 2024-05-01 15:19 | XMS_ITS | CCD ---
Author Organization [facility] Inform ion Partnership [facility] Care Team Providers Care Ticket Sales Agent Name Role Phone BETH MARTINEZ Unavailable Unavailable Spasic, CHIEF DIVERSITY OFFICER-C Ela Bey Attending Provider [phone] Spasic, Ela Bey Admitting Unavailable Spasic, Ela Bey Attending Unavailable SPASIC, ELA Admitting Unavailable SPASIC, ELA Attending Unavailable SPASIC, ELA Primary Care Unavailable DR RAMESH ROSE V Consulting Unavailable KAYODE ONEILL Consulting Unavailable SPASIC, ELA Consulting Unavailable SPASIC, ELA Admitting Unavailable SPASIC, ELA Attending Unavailable SPASIC, ELA Primary Care Unavailable SPASIC, ELA Consulting Unavailable Martinez Phelan Attending Unavailable KATHERINE GIMENEZ Primary Care Physician Bren Holley Unavailable Unavailable Allergies Allergy Classification Reported Allergen(s) Allergy Type Date of Onset Reaction(s) Facility (2 sources) 4-Aminobenzoic Acid; Translations: [pertussis vaccines] Drug Allergy 7 [facility] Repository (2 sources) Cephalexin; Translations: [cephalexin] Drug Allergy 7 [facility] Repository (1 source) Cephalexin; Translations: [cephalexin] Drug Allergy Vomiting (disorder) [facility] (1 source) Bordetella pertussis antigen (substance); Translations: [pertussis vaccines] Drug allergy Itching [facility] Medications Current Medications Medication Drug Class(es) Dates Sig (Normalized) Sig (Original) acetaminophen 325 mg / HYDROcodone bitartrate 5 mg oral tablet (2 sources) Opioid Agonist Start: 04-06-2021 take 1 tablet by mouth every six hours as needed for pain [place] 325 mg-5 mg oral tablet 1 tab(s), Oral, q6hr as needed for pain, 7 tab(s), Refill(s) 0, [facility], 185, cm, 04/06/21 10:33:00 EDT, Height/Length Dosing, 81.9, kg, 04/06/21 10:33:00 EDT, Weight Dosing Start Date: 04/06/21 Status: Ordered Start: 05-22-2019 [place]minster 325 mg-5 mg oral tablet 1 tab(s), Oral, q4hr for pain, 12 tab(s), Refill(s) 0 Start Date: 05/22/19 Status: Ordered naproxen 500 mg oral tablet (2 sources) Nonsteroidal Anti-inflammatory Drug Start: 04-06-2021 take 1 tablet by mouth twice daily Naprosyn 500 mg Tab 500 mg = 1 tab(s), Oral, BID, # 20 tab(s), Refills(s) 0, Pharmacy: [facility]/pharmacy #[id number], 185.4, cm, 04/16/24 10:42:00 EDT, Height/Length Dosing, 80.5, kg, 04/16/24 10:42:00 EDT, Weight Dosing Start Date: 04/16/24 Status: Ordered Zofran ODT 8 mg Tab-Dis (1 source) Start: 09-07-2017 take 1 tablet by mouth every eight hours as needed for nausea Zofran ODT 8 mg Tab-Dis 8 mg = 1 tab(s), Oral, q8hr, PRN Nausea, # 6 tab(s), Refills(s) 1, [facility]: [facility] Start Date: 09/07/17 Status: Ordered Completed/Discontinued Medications Medication Drug Class(es) Dates Sig (Normalized) Sig (Original) penicillin v potassium 500 mg oral tablet (1 source) Start: 04-16-2024 End: 04-26-2024 take 1 tablet by mouth three times daily penicillin V potassium 500 mg Tab 500 mg = 1 tab(s), Oral, TID, Take one tab by mouth 3 times a day. # 30, X 10 day(s), # 30 tab(s), Refills(s) 0, Pharmacy: [facility]/pharmacy #[id number], 185.4, cm, 04/16/24 10:42:00 EDT, Height/Length Dosing, 80.5, kg, 04/16/24 10:42:00 EDT, Weight Dosing Start Date: 04/16/24 Stop Date: 04/26/24 Status: Ordered Problems Active Problems Problem Classification Problem Date Documented Date Episodic/Chronic Abdominal hernia (2 sources) Inguinal hernia; Translations: [Umbilical hernia] 09-07-2017 Episodic Disorders of teeth and jaw (1 source) Disorder of teeth AND/OR supporting structures; Translations: [Other specified disorders of teeth and supporting structures] Onset: 04-16-2024 Episodic Nonspecific chest pain (6 sources) Other chest pain; Translations: [Other chest pain] Onset: 12-10-2022 Episodic Other ear and sense organ disorders (1 source) 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 Thyroid disorders (1 source) Nontoxic goiter, unspecified; [...] Test Name Value Interpretation Reference Range Facility Consent for Treatmenton Consent for Treatment [id number] 0TIFF [facility] Discharge Instructionson Discharge Instructions [id number] .00TIFF Normal [facility] Discharge Instructions [id number] .[id number] Normal [facility] ED Clinical Summaryon 2023 ED Clinical Summary [address] [address] ED Clinical Summary Person Information Name: KELI HATHAWAY Jr [facility] Age: 43 Years : 1980 Sex: Male Language: Sammarinese PCP: KATHERINE GIMENEZ MD Marital Status: Phone: [phone] Visit Id: Visit Reason: Dental pain; TOOTH PAIN Speciality: Acuity: 4 Enc Type: Emergency Med Service: Emergency Arrival: 04/16/2024 10:29:50 Discharge: 04/16/2024 11:25:16 LOS: 000 00:56 Checkin: 04/16/2024 10:29:50 Checkout: 04/16/2024 11:25:16 Dispo Type: Home (Routine DC) EVENTS: Event Name Event Status Request Date/Time Start Date/Time Complete Date/Time Arrive Complete 04/16/2024 10:29:50 04/16/2024 10:29:50 04/16/2024 10:29:50 Document Home Meds Request 04/16/2024 10:29:50 Triage Complete 04/16/2024 10:29:50 04/16/2024 10:42:12 04/16/2024 10:42:12 Bed Assign Complete 04/16/2024 10:32:25 04/16/2024 10:32:25 04/16/2024 10:32:25 Dr Exam Complete 04/16/2024 10:32:25 04/16/2024 10:32:30 04/16/2024 10:32:30 RN Exam Complete 04/16/2024 10:32:25 04/16/2024 11:24:55 04/16/2024 11:24:55 Registration Complete 04/16/2024 10:32:30 04/16/2024 11:09:06 04/16/2024 11:09:06 Dr Exam Complete 04/16/2024 10:49:03 04/16/2024 10:49:03 04/16/2024 10:49:03 Discharge Complete 04/16/2024 10:50:13 04/16/2024 11:25:21 04/16/2024 11:25:21 Reg Complete Request 04/16/2024 11:09:06 Reg Bed Request Complete 04/16/2024 11:09:06 04/16/2024 11:09:06 04/16/2024 11:09:06 Transfer Complete 04/16/2024 11:25:21 04/16/2024 11:25:21 04/16/2024 11:25:21 ADDRESS: [address] [place] [phone] PHYS DOC NOTES: MEDICAL INFORMATION: Prescriptions Given: New Medications [id number], [address], [place] [id number], [phone] penicillin V potassium (penicillin V potassium 500 mg Tab) 1 Tablets By Mouth 3 times a day for 10 Days. Take one tab by mouth 3 times a day. # 30. Refills: 0. Medications to Continue Taking That Have Changed [facility]/pharmacy #[id number], [address], [place] [id number], [phone] START: naproxen (Naprosyn 500 mg Tab) 1 Tablets By Mouth 2 times a day. Refills: 0. Other Medications START: naproxen (Naprosyn 500 mg Tab) 1 Tablets By Mouth 2 times a day as needed Pain. Refills: 0. Medications to Continue with No Changes Other Medications acetaminophen-hydrocod one ([place] 325 mg-5 mg oral tablet) 1 Tablets By Mouth every 4 hours as needed for pain. Refills: 0. acetaminophen-hydrocod one ([place] 325 mg-5 mg oral tablet) 1 Tablets By Mouth every 6 hours as needed as needed for pain. Refills: 0. ondansetron (Zofran ODT 8 mg Tab-Dis) 1 Tablets By Mouth every 8 hours as needed Nausea. Refills: 1. PATIENT EDUCATION INFORMATION: Instructions: Dental Pain Follow up: With: Address: When: [address] [address] [facility] (1) In 3 days 04/19/2024 Comments: Dentistry follow-up DIAGNOSIS: Pain, dental Normal [facility] ED Noteon 04-16-2024 ED Note [id number] .[id number] Normal [facility] ED Patient Education Noteon 04-16-2024 ED Patient Education Note Dentistry Dental Pain Dental pain is often a sign that something is wrong with your teeth or gums. It is also something that can occur following dental treatment. If you have dental pain, it is important to contact your dental care provider, especially if the cause of the pain has not been determined. Dental pain may be of varying intensity and can be caused by many things, including: ? Tooth decay (cavities or caries). Cavities are caused by bacteria that produce acids that irritate the nerve of your tooth, making it sensitive to air and hot or cold temperatures. This eventually causes discomfort or pain. ? Abscess or infection. Once the bacteria reach the inner part of the tooth (pulp), a bacterial infection (dental abscess) can occur. Pus typically collects at the end of the root of a tooth. ? Injury. ? A crack in the tooth. ? Gum recession exposing the root, and possibly the nerves, of a tooth. ? Gum (periodontal)disease. ? Abnormal grinding or clenching. ? Poor or improper home care. ? An unknown reason (idiopathic). Your pain may be mild or severe. It may occur when you are: ? Chewing. ? Exposed to hot or cold temperatures. ? Eating or drinking sugary foods or beverages, such as soda or candy. Your pain may be constant, or it may come and go without cause. Follow these instructions at home: The following actions may help to lessen any discomfort that you are feeling before or after getting dental care. Medicines ? Take msyb-dgd-aswjokk and prescription medicines only as told by your dental care provider. ? If you were prescribed an antibiotic medicine, take it as told by your dental care provider. Do not stop taking the antibiotic even if you start to feel better. Eating and drinking Avoid foods or drinks that cause you pain, such as: ? Very hot or very cold foods or drinks. ? Sweet or sugary foods or drinks. Managing pain and swelling ? Ice can sometimes be used to reduce pain and swelling, especially if the pain is following dental treatment. ? If directed, put ice on the painful area of your face. To do this: ? Put ice in a plastic bag. ? Place a towel between your skin and the bag. ? Leave the ice on for 20 minutes, 2?3 times a day. ? Remove the ice if your skin turns bright red. This is very important. If you cannot feel pain, heat, or cold, you have a greater risk of damage to the area. Brushing your teeth ? To keep your mouth and gums healthy, brush your teeth twice a day using a fluoride toothpaste. ? Use a toothpaste made for sensitive teeth as directed by your dental care provider, especially if the root is exposed. ? Always brush your teeth with a soft-bristled toothbrush. This will help prevent irritation to your gums. General instructions ? Floss at least once a day. ? Do not apply heat to the outside of the face. ? Gargle with a mixture of salt and water 3?4 times a day or as needed. To make salt water, completely dissolve ??1 tsp (3?6 g) of salt in 1 cup (237 mL) of warm water. ? Keep all follow-up visits. This is important. Contact a dental care provider if: ? You have any unexplained dental pain. ? Your pain is not controlled with medicines. ? Your symptoms get worse. ? You have new symptoms. Get help right away if: ? You are unable to open your mouth. ? You are having trouble breathing or swallowing. ? You have a fever. ? You notice that your face, neck, or jaw is swollen. These symptoms may represent a serious problem that is an emergency. Do not wait to see if the symptoms will go away. Get medical help right away. Call your local emergency services (911 in the [place] Do not drive yourself to the hospital. Summary ? Dental pain may be caused by many things, including tooth decay and infection. ? Your pain may be mild or severe. ? Take pcff-ptg-brmsaul and prescription medicines only as told by your dental care provider. ? Watch your dental pain for any changes. Let your dental care provider know if your symptoms get worse. This information is not intended to replace advice given to you by your health care provider. Make sure you discuss any questions you have with your health care provider. Document Revised: 08/06/2021 Document Reviewed: 08/06/2021 Elsevier Patient Education ? 2022 [employer] Normal [facility] ED Patient Summaryon 024 ED Patient Summary [address] [address] Patient Discharge Instructions Person Information Name: KELI HATHAWAY Jr Age: 43 Years Arrival Date: 04/16/2024 10:29:50 Discharge Diagnosis: Pain, dental Primary Care Physician: KATHERINE GIMENEZ MD Provider Information Primary Provider: Martinez Phelan MD Advanced Claim Examiner:Victor M Hairston PA-C The exam and treatment you received in the Emergency Department were for an urgent problem and are not intended as complete care. It is important that you follow up with a doctor, nurse practitioner, or physician?s patient clerical assistant for ongoing care. If your symptoms become worse or you do not improve as expected and you are unable to reach your usual health care provider, you should return to the Emergency Department. We are available 24 hours a day. KELI HATHAWAY Jr has been given the following list of patient education materials, prescriptions and follow-up instructions: Follow-up Instructions: With: Address: When: [employer] [address] [address] Business (1) In 3 days 04/19/2024 Comments: Dentistry follow-up In the event that this physician does not participate in your insurance network, please consult with your insurance company to find a nearby participating provider. Patient Education Materials: Dental Pain A MESSAGE TO ALL PATIENTS REGARDING OPIOIDS PRESCRIPTION OPIOIDS: WHAT YOU NEED TO KNOW Prescription opioids can be used to help relieve bnbwgtdu-nr-lzdoud pain and are often prescribed following a [...] family). ? Safely dispose of unused prescription opioids: Find your community drug take-back program or your pharmacy mail-back program, or flush them down the toilet, following guidance from the Food and Drug Administration (www.fda.gov/Drugs/Res ourcesForYou). ? Visit www.cdc.gov/drugoverdo se to learn about the risks of opioids abuse and overdose. ? If you believe you may be struggling with addiction, tell your health emergency care tech and ask for guidance or call [facility]?S National Helpline at 7-770-951-ZDEO (more content not included)... Normal [facility] ECHO LIMITED STUDYon 023 ECHO LIMITED STUDY Patient Name Site KELI Corbett [facility] Account No Medical Record Number Age Sex Date Time [id number] [facility]:[id number] 42 M 03/24/2023 10:03 At the Request [...] M.D. on 03/24/2023 at 18:14 Normal [facility] XR CSPINE 2_3 VIEWSon 2022 XR CSPINE [...] RAMESH ROSE Date: 2022-12-24 07:41 Normal [facility] US THYROIDon 12-23-2022 US THYROID EXAM: US [...] KAYODE ONEILL Date: 2022-12-23 15:22 Normal [facility] XR CHEST 2 Von 12-23-2022 XR CHEST [...] by: KAYODE ONEILL Date: 2022-12-23 15:25 Normal [facility] Albumin [Mass/volume] in Ser um or PlasmaOrdered By: Ela Salmeron on 12-10-2022 Albumin [Mass/Vol] 3.9 g/dL Normal 3.2-5.5 [facility] Comment on above: Order Comment: Reaso n for Exam Atypical chest pain Performed By: #### H SCRP, CBC, CMP, TSH3 wRFLX, FE and TIBC, LIPID #### [address] Automated basophil %Ordered By: Ela Salmeron on 12-10-2022 Basophils/100 WBC (Bld) 0.8 % Normal . [facility] Comment on above: Order Comment: Reaso n for Exam Atypical chest pain Performed By: #### H SCRP, CBC, CMP, TSH3 wRFLX, FE and TIBC, LIPID #### [address] Automated basophil countOrde red By: Ela Salmeron on 12-10-2022 Basophils (Bld) [#/Vol] 0.1 10*3/uL Normal 0.0-0.2 [facility] Comment on above: Order Comment: Reaso n for Exam Atypical chest pain Result Comment: PERF ORMED BY: [place] [address] PATHOLOGIST RADIATION MONITOR KAIA ORELLANA M.D. Performed By: #### H SCRP, CBC, CMP, TSH3 wRFLX, FE and TIBC, LIPID #### [address] Automated blood monocyte cou ntOrdered By: Ela Salmeron on 12-10-2022 Monocytes (Bld) [#/Vol] 0.7 10*3/uL Normal 0.0-0.8 [facility] Comment on above: Order Comment: Reaso n for Exam Atypical chest pain Performed By: #### H SCRP, CBC, CMP, TSH3 wRFLX, FE and TIBC, LIPID #### [facility] [address] Automated eosinophil %Ordere d By: Ela Salmeron on 12-10-2022 Eosinophils/100 WBC (Bld) 3.2 % Normal . [facility] Comment on above: Order Comment: Reaso n for Exam Atypical chest pain Performed By: #### H SCRP, CBC, CMP, TSH3 wRFLX, FE and TIBC, LIPID #### [facility] [address] Automated eosinophil countOr dered By: Ela Salmeron on 12-10-2022 Eosinophils (Bld) [#/Vol] 0.3 10*3/uL Normal 0.0-0.45 [facility] Comment on above: Order Comment: Reaso n for Exam Atypical chest pain Performed By: #### H SCRP, CBC, CMP, TSH3 wRFLX, FE and TIBC, LIPID #### [facility] [address] Automated monocyte %Ordered By: Ela Salmeron on 12-10-2022 Monocytes/100 WBC (Bld) 8.5 % Normal . [facility] Comment on above: Order Comment: Reaso n for Exam Atypical chest pain Performed By: #### H SCRP, CBC, CMP, TSH3 wRFLX, FE and TIBC, LIPID #### [facility] [address] [place] [address] [place] Automated neutrophil %Ordere d By: Ela Salmeron on 12-10-2022 Neutrophils/100 WBC (Bld) 59.1 % Normal . [facility] Comment on above: Order Comment: Reaso n for Exam Atypical chest pain Performed By: #### H SCRP, CBC, CMP, TSH3 wRFLX, FE and TIBC, LIPID #### [facility] [address] [place] [id number] [place] C reactive protein [Mass/vol ume] in Serum or Plasma by High sensitivity methodOrdered By: Ela Salmeron on 12-10-2022 CRP High sensitivity method [Mass/Vol] 5.5 mg/L [facility] Comment on above: Cardiovascular Risk Classification (AHA/CDC)hsCRP [...] 12-10-2022 Transferrin [Mass/Vol] 203 mg/dL Normal 180-380 [facility] Comment on above: Order Comment: Reaso n for Exam Atypical chest pain Performed By: #### H SCRP, CBC, CMP, TSH3 wRFLX, FE and TIBC, LIPID #### [facility] [address] [place] [id number] [place] Cholesterol [Mass/volume] in Serum or PlasmaOrdered By: Ela Salmeron on 12-10-2022 Cholesterol [Mass/Vol] 146 mg/dL Normal 140-200 [facility] Comment on above: Chol less than 200 [...] TSH3 wRFLX, FE and TIBC, LIPID #### [facility] [address] [place] [id number] [place] Cholesterol in LDL Calc [Mas s/Vol]Ordered By: Ela Salmeron on 12-10-2022 Cholesterol in LDL [Mass/Vol] 81 mg/dL 0-100 [facility] Comment on above: LDL ATP III CLASSIFI CATIONLDL less than 100 mg/dL OptimalLDL 100-129 mg/dL Near or above optimalLDL 130-159 mg/dL Borderline highLDL 160-189 mg/dL HighLDL greater than 189 mg/dL Very high Cholesterol in VLDL Calc [Ma ss/Vol]Ordered By: Ela Salmeron on 12-10-2022 Cholesterol in VLDL [Mass/Vol] 33 mg/dL [facility] Complete Blood Count Auto Di ffon 12-10-2022 Mean Corpuscular HGB Conc 33.7 g/dL Normal 32.5-35.6 [facility] Comment on above: Order Comment: Reaso n for Exam Atypical chest pain Performed By: #### H SCRP, CBC, CMP, TSH3 wRFLX, FE and TIBC, LIPID #### [facility] [address] NRBC% 0.1 /100{WBC} Normal 0-0.5 [facility] Comment on above: Order Comment: Reaso n for Exam Atypical chest pain Performed By: #### H SCRP, CBC, CMP, TSH3 wRFLX, FE and TIBC, LIPID #### [facility] [address] Comprehensive Metabolic Pane noemy 12-10-2022 ALT [Catalytic activity/Vol] 13 U/L Normal 10-60 [facility] Comment on above: Order Comment: Reaso n for Exam Atypical chest pain Performed By: #### H SCRP, CBC, CMP, TSH3 wRFLX, FE and TIBC, LIPID #### [facility] [address] Estimated GFR ( Anyi > 60 Normal [facility] Comment on above: Order Comment: Reaso n for Exam Atypical chest pain Result Comment: GFR estimated reference range: According to KDOQI guidelines, <60 ml/min/1.73m2 is sufficient to diagnose a patient with chronic kidney disease. Performed By: #### H SCRP, CBC, CMP, TSH3 wRFLX, FE and TIBC, LIPID #### [facility] [address] [place] [address] [place] Estimated GFR (Non- Am > 60 Normal [facility] Comment on above: Order Comment: Reaso n for Exam Atypical chest pain Performed By: #### H SCRP, CBC, CMP, TSH3 wRFLX, FE and TIBC, LIPID #### [facility] [address] Erythrocyte distribution wid th [Ratio] by Automated countOrdered By: Ela Salmeron on 12-10-2022 Erythrocyte distribution width (RBC) [Ratio] 12.8 % Normal 12.0-14.8 [facility] Comment on above: Order Comment: Reaso n for Exam Atypical chest pain Performed By: #### H SCRP, CBC, CMP, TSH3 wRFLX, FE and TIBC, LIPID #### [facility] [address] Erythrocytes [#/volume] in B lood by Automated countOrdered By: Ela Salmeron on 12-10-2022 RBC (Bld) [#/Vol] 5.05 10*6/uL Normal 3.90-5.60 [facility] Comment on above: Order Comment: Reaso n for Exam Atypical chest pain Performed By: #### H SCRP, CBC, CMP, TSH3 wRFLX, FE and TIBC, LIPID #### [facility] [address] [place] [address] Estimated glomerular filtrat ion rate (GFR) non- AmericanOrdered By: Ela Salmeron on 12-10-2022 GFR/1.73 sq M.predicted among non-blacks MDRD (S/P/Bld) [Vol rate/Area] > 60 mL/Min [facility] Hematocrit [Volume Fraction] of Blood by Automated countOrdered By: Ela Salmeron on 12-10-2022 Hematocrit (Bld) [Volume fraction] 44.9 % Normal 38.8-50.0 [facility] Comment on above: Order Comment: Reaso n for Exam Atypical chest pain Performed By: #### H SCRP, CBC, CMP, TSH3 wRFLX, FE and TIBC, LIPID #### [facility] [address] Hemoglobin [Mass/volume] in BloodOrdered By: Ela Salmeron on 12-10-2022 Hemoglobin (Bld) [Mass/Vol] 15.1 g/dL Normal 13.0-17.0 [facility] Comment on above: Order Comment: Reaso n for Exam Atypical chest pain Performed By: #### H SCRP, CBC, CMP, TSH3 wRFLX, FE and TIBC, LIPID #### [facility] [address] High Sensitive CRPon 023 High Sensitive CRP 5.5 mg/L Normal [facility] Comment on above: Order Comment: Reaso n [...] for estimation of CVD risk. PERFORMED BY: [place] [address] PATHOLOGIST RADIATION MONITOR KAIA ORELLANA M.D. Performed By: #### H SCRP, CBC, CMP, TSH3 wRFLX, FE and TIBC, LIPID #### [facility] [address] Iron [Mass/volume] in Serum or PlasmaOrdered By: Ela Salmeron on 12-10-2022 Iron [Mass/Vol] 140 ug/dL Normal 40-160 [facility] Comment on above: Order Comment: Reaso n for Exam Atypical chest pain Performed By: #### H SCRP, CBC, CMP, TSH3 wRFLX, FE and TIBC, LIPID #### [facility] [address] Iron and TIBC Profileon 11-16 % Iron Saturation 49.3 % Normal 20-50 [facility] Comment on above: Order Comment: Reaso n for Exam Atypical chest pain Performed By: #### H SCRP, CBC, CMP, TSH3 wRFLX, FE and TIBC, LIPID #### [facility] [address] [place] [address] [place] Total Iron Binding Capacity 284 ug/dL Normal 255-450 [facility] Comment on above: Order Comment: Reaso n for Exam Atypical chest pain Performed By: #### H SCRP, CBC, CMP, TSH3 wRFLX, FE and TIBC, LIPID #### [facility] [address] [place] [id number] [facility] [facility] Iron binding capacity [Mass/ volume] in Serum or PlasmaOrdered By: Ela Sharpc on 12-10-2022 Iron binding capacity [Mass/Vol] 284 ug/dL 255-450 [facility] Iron saturation [Mass Fracti on] in Serum or PlasmaOrdered By: Ela Sharpc on 12-10-2022 Iron saturation [Mass fraction] 49.3 % 20-50 [facility] Leukocytes [#/volume] correc aristeo for nucleated erythrocytes in Blood by Automated counOrdered By: Ela Salmeron on 12-10-2022 WBC corrected for nucl RBC Auto (Bld) [#/Vol] 8.7 10*3/uL 4.1-10.5 [facility] Leukocytes [#/volume] in Blo od by Automated countOrdered By: Ela Salmeron on 12-10-2022 WBC (Bld) [#/Vol] 8.7 10*3/uL Normal 4.1-10.5 [facility] Comment on above: Order Comment: Reaso n for Exam Atypical chest pain Performed By: #### H SCRP, CBC, CMP, TSH3 wRFLX, FE and TIBC, LIPID #### [facility] [address] [id number] [place] Lipid Panelon 12-10-2022 LDL Cholesterol,Calculated 81 mg/dL Normal 0-100 [facility] Comment on above: Order Comment: Reaso n for Exam Atypical chest pain Result Comment: LDL ATP III CLASSIFICATION LDL less than 100 mg/dL Optimal LDL 100-129 mg/dL Near or above optimal LDL 130-159 mg/dL Borderline high LDL 160-189 mg/dL High LDL greater than 189 mg/dL Very high Performed By: #### H SCRP, CBC, CMP, TSH3 wRFLX, FE and TIBC, LIPID #### [facility] [address] Triglyceride w/Reflex 168 mg/dL High 35-149 [facility] Comment on above: Order Comment: Reaso [...] TSH3 wRFLX, FE and TIBC, LIPID #### [address] VLDL CHOLESTEROL 33 mg/dL Normal [facility] Comment on above: Order Comment: Reaso n for Exam Atypical chest pain Performed By: #### H SCRP, CBC, CMP, TSH3 wRFLX, FE and TIBC, LIPID #### [address] Lymphocytes [#/volume] in Bl ood by Automated countOrdered By: Ela Salmeron on 12-10-2022 Lymphocytes (Bld) [#/Vol] 2.5 10*3/uL Normal 1.00-4.8 [facility] Comment on above: Order Comment: Reaso n for Exam Atypical chest pain Performed By: #### H SCRP, CBC, CMP, TSH3 wRFLX, FE and TIBC, LIPID #### [place] [address] [place] Lymphocytes/100 leukocytes i n Blood by Automated countOrdered By: Ela Salmeron on 12-10-2022 Lymphocytes/100 WBC (Bld) 28.4 % Normal . [facility] Comment on above: Order Comment: Reaso n for Exam Atypical chest pain Performed By: #### H SCRP, CBC, CMP, TSH3 wRFLX, FE and TIBC, LIPID #### [facility] [address] [place] [address] [place] MCH [Entitic mass] by Automa aristeo countOrdered By: Ela Salmeron on 12-10-2022 MCH (RBC) [Entitic mass] 30.0 pg Normal 27.5-35.2 [facility] Comment on above: Order Comment: Reaso n for Exam Atypical chest pain Performed By: #### H SCRP, CBC, CMP, TSH3 wRFLX, FE and TIBC, LIPID #### [facility] [address] MCHC Auto (RBC) [Mass/Vol]Or dered By: Ela Salmeron on 12-10-2022 MCHC (RBC) [Mass/Vol] 33.7 g/dL 32.5-35.6 [facility] MCV [Entitic volume] by Auto mated countOrdered By: Ela Salmeron on 12-10-2022 MCV (RBC) [Entitic vol] 88.9 fL Normal 83.5-101 [facility] Comment on above: Order Comment: Reaso n for Exam Atypical chest pain Performed By: #### H SCRP, CBC, CMP, TSH3 wRFLX, FE and TIBC, LIPID #### [facility] [address] Neutrophils [#/volume] in Bl ood by Automated countOrdered By: Ela Salmeron on 12-10-2022 Neutrophils (Bld) [#/Vol] 5.1 10*3/uL Normal 1.8-7.7 [facility] Comment on above: Order Comment: Reaso n for Exam Atypical chest pain Performed By: #### H SCRP, CBC, CMP, TSH3 wRFLX, FE and TIBC, LIPID #### [facility] [address] No Panel InformationOrdered By: Ela Salmeron on 12-10-2022 Estimated GFR () > 60 mL/Min [facility] Comment on above: GFR estimated refere nce range: According to KDOQI guidelines, <60 ml/min/1.73m2 is sufficient to diagnose a patient with chronic kidney disease. Pharmacy Creatinine Clearance (Chem N/A [facility] Nucleated erythrocytes [Pres ence] in Blood by Automated countOrdered By: Ela Salmeron on 12-10-2022 Nucleated RBC Auto Ql (Bld) 0.1 /100{WBC} 0-0.5 [facility] Platelet mean volume [Entiti c volume] in Blood by Automated countOrdered By: Ela Salmeron on 12-10-2022 Platelet mean volume (Bld) [Entitic vol] 6.8 fL Normal 6.6-10.1 [facility] Comment on above: Order Comment: Reaso n for Exam Atypical chest pain Performed By: #### H SCRP, CBC, CMP, TSH3 wRFLX, FE and TIBC, LIPID #### [facility] [address] [place] [address] [place] Platelets [#/volume] in Bloo d by Automated countOrdered By: Ela Salmeron on 12-10-2022 Platelets (Bld) [#/Vol] 350 10*3/uL Normal 150-450 [facility] Comment on above: Order Comment: Reaso n for Exam Atypical chest pain Performed By: #### H SCRP, CBC, CMP, TSH3 wRFLX, FE and TIBC, LIPID #### [facility] [address] [place] [address] [place] Protein [Mass/volume] in Ser um or PlasmaOrdered By: Ela Salmeron on 12-10-2022 Protein [Mass/Vol] 6.5 g/dL Normal 6.1-7.9 [facility] Comment on above: Order Comment: Reaso n for Exam Atypical chest pain Performed By: #### H SCRP, CBC, CMP, TSH3 wRFLX, FE and TIBC, LIPID #### [facility] [address] [place] [address] [place] Serum globulin measurement b y calculation (mass/volume)Ordered By: Ela Salmeron on 12-10-2022 Globulin (S) [Mass/Vol] 2.6 g/dL Normal [facility] Comment on above: Order Comment: Reaso n for Exam Atypical chest pain Performed By: #### H SCRP, CBC, CMP, TSH3 wRFLX, FE and TIBC, LIPID #### [facility] [address] Serum or plasma alanine noyola otransferase measurement without P-5'-P (enzymatic activiOrdered By: Ela Salmeron on 12-10-2022 ALT No additional P-5'-P [Catalytic activity/Vol] 13 U/L 10-60 [facility] Serum or plasma albumin/glob ulin mass ratioOrdered By: Ela Salmeron on 12-10-2022 Albumin/Globulin [Mass ratio] 1.5 {ratio} Normal [facility] Comment on above: Order Comment: Reaso n for Exam Atypical chest pain Performed By: #### H SCRP, CBC, CMP, TSH3 wRFLX, FE and TIBC, LIPID #### [facility] [address] Serum or plasma alkaline monica sphatase measurement (enzymatic activity/volume)Ordered By: Ela Salmeron on 12-10-2022 ALP [Catalytic activity/Vol] 57 U/L Normal 32-92 [facility] Comment on above: Order Comment: Reaso n for Exam Atypical chest pain Performed By: #### H SCRP, CBC, CMP, TSH3 wRFLX, FE and TIBC, LIPID #### [facility] [address] Serum or plasma anion gap de terminationOrdered By: Ela Salmeron on 12-10-2022 Anion gap [Moles/Vol] 11.1 mmol/L Normal 6.0-15.0 [facility] Comment on above: Order Comment: Reaso n for Exam Atypical chest pain Performed By: #### H SCRP, CBC, CMP, TSH3 wRFLX, FE and TIBC, LIPID #### [facility] [address] Serum or plasma aspartate am inotransferase measurement (enzymatic activity/volume)Ordered By: Ela Salmeron on 12-10-2022 AST [Catalytic activity/Vol] 15 U/L Normal 10-42 [facility] Comment on above: Order Comment: Reaso n for Exam Atypical chest pain Performed By: #### H SCRP, CBC, CMP, TSH3 wRFLX, FE and TIBC, LIPID #### [facility] [address] [id number] [facility] Serum or plasma calcium marla urement (mass/volume)Ordered By: Ela Salmeron on 12-10-2022 Calcium [Mass/Vol] 9.1 mg/dL Normal 8.2-10.2 [facility] Comment on above: Order Comment: Reaso n for Exam Atypical chest pain Performed By: #### H SCRP, CBC, CMP, TSH3 wRFLX, FE and TIBC, LIPID #### [facility] [address] Serum or plasma chloride amelia surement (moles/volume)Ordered By: Ela Salmeron on 12-10-2022 Chloride [Moles/Vol] 101 mmol/L Normal 95-114 [facility] Comment on above: Order Comment: Reaso n for Exam Atypical chest pain Performed By: #### H SCRP, CBC, CMP, TSH3 wRFLX, FE and TIBC, LIPID #### [facility] [address] Serum or plasma creatinine m easurement with calculation of estimated glomerular filtrOrdered By: Ela Salmeron on 12-10-2022 Creatinine [Mass/Vol] 1.01 mg/dL Normal 0.64-1.27 [facility] Comment on above: Order Comment: Reaso n for Exam Atypical chest pain Performed By: #### H SCRP, CBC, CMP, TSH3 wRFLX, FE and TIBC, LIPID #### [facility] [address] Serum or plasma glucose marla urement (mass/volume)Ordered By: Ela Salmeron on 12-10-2022 Glucose [Mass/Vol] 89 mg/dL Normal 70-100 [facility] Comment on above: ADA recommended refe rence rangeRandom Glucose Reference Range is dependent on time and content of last meal. Glucose of more than 200 mg/dL in a nonstressed, ambulatory subject supports the diagnosis of Diabetes Mellitus. Order Comment: Reaso n for Exam Atypical chest pain Result Comment: [place] om Glucose Reference Range is dependent on time and content of last meal. Glucose of more than 200 mg/dL in a nonstressed, ambulatory subject supports the diagnosis of Diabetes Mellitus. ADA recommended reference range Performed By: #### H SCRP, CBC, CMP, TSH3 wRFLX, FE and TIBC, LIPID #### [facility] [address] Serum or plasma high density lipoprotein (HDL) cholesterol measurementOrdered By: Ela Salmeron on 12-10-2022 Cholesterol in HDL [Mass/Vol] 31 mg/dL Normal 29-71 [facility] Comment on above: HDL CHOL ATP-III CLA [...] TSH3 wRFLX, FE and TIBC, LIPID #### [address] Serum or plasma potassium me asurement (moles/volume)Ordered By: Ela Salmeron on 12-10-2022 Potassium [Moles/Vol] 4.4 mmol/L Normal 3.5-5.1 [facility] Comment on above: Order Comment: Reaso n for Exam Atypical chest pain Performed By: #### H SCRP, CBC, CMP, TSH3 wRFLX, FE and TIBC, LIPID #### [address] Serum or plasma sodium measu rement (moles/volume)Ordered By: Ela Salmeron on 12-10-2022 Sodium [Moles/Vol] 135 mmol/L Low 136-146 [facility] Comment on above: Order Comment: Reaso n for Exam Atypical chest pain Performed By: #### H SCRP, CBC, CMP, TSH3 wRFLX, FE and TIBC, LIPID #### [address] Serum or plasma total biliru bin measurement (mass/volume)Ordered By: Ela Salmeron on 12-10-2022 Bilirubin [Mass/Vol] 0.8 mg/dL Normal 0.3-1.2 [facility] Comment on above: Order Comment: Reaso n for Exam Atypical chest pain Performed By: #### H SCRP, CBC, CMP, TSH3 wRFLX, FE and TIBC, LIPID #### [facility] [address] Serum or plasma total carbon dioxide measurement (moles/volume)Ordered By: Ela Salmeron on 12-10-2022 CO2 [Moles/Vol] 27.3 mmol/L Normal 22.0-30.0 [facility] Comment on above: Order Comment: Reaso n for Exam Atypical chest pain Performed By: #### H SCRP, CBC, CMP, TSH3 wRFLX, FE and TIBC, LIPID #### [facility] [address] Serum or plasma total choles terol/high density lipoprotein (HDL) cholesterol mass ratOrdered By: Ela Salmeron on 12-10-2022 Cholesterol.total/Choles terol in HDL [Mass ratio] 4.7 {ratio} Normal <5.0 [facility] Comment on above: Order Comment: Reaso n for Exam Atypical chest pain Performed By: #### H SCRP, CBC, CMP, TSH3 wRFLX, FE and TIBC, LIPID #### [facility] [address] Serum or plasma urea nitroge n measurement (mass/volume)Ordered By: Ela Salmeron on 12-10-2022 Urea nitrogen [Mass/Vol] 10 mg/dL Normal 9-23 [facility] Comment on above: Order Comment: Reaso n for Exam Atypical chest pain Performed By: #### H SCRP, CBC, CMP, TSH3 wRFLX, FE and TIBC, LIPID #### [facility] [address] TSH DL <= 0.005 mIU/L QnOrde red By: Ela Salmeron on 12-10-2022 TSH Qn 1.02 m[IU]/L 0.45-5.33 [facility] Thyroid Stim Hormone w/Rflxo n 12-10-2022 Thyroid Stim Hormone w/Rflx 1.02 u[iU]/mL Normal 0.45-5.33 [facility] Comment on above: Order Comment: Reaso n for Exam Atypical chest pain Result Comment: PERF ORMED BY: [facility] [address] [place] [address] PATHOLOGIST RADIATION MONITOR KAIA ORELLANA M.D. Performed By: #### H SCRP, CBC, CMP, TSH3 wRFLX, FE and TIBC, LIPID #### [facility] [address] Triglyceride [Mass/volume] i n Serum or PlasmaOrdered By: Ela Salmeron on 12-10-2022 Triglyceride [Mass/Vol] 168 mg/dL 35-149 [facility] Comment on above: TRIG ATP III CLASSIF ICATIONTRIG less than 150 mg/dL NormalTRIG 150-199 mg/dL Borderline highTRIG 200-500 mg/dL High TRIG greater than 500 mg/dL Very highStandard traceable to the Center for Disease Conrtrol and Prevention (CDC) test method. Progress Noteon 02-06-2018 HIM IP Note OR Pipe Fitter Ammonia Normal [facility] Chlamydia/GC DNA, Uron 01-27 Chlamydia Probe, Ur Negative Normal NEG [facility] Comment on above: Result Comment: CHLA MYDIA TRACHOMATIS DNA not detected by nucleic acid amplification. Performed By: #### U CGP ####[address] [place] [address] Gonorrhea Probe, Ur Negative Normal NEG [facility] Comment on above: Result Comment: NEIS SERIA GONORRHOEAE DNA not detected by nucleic acid amplification.[address] [place] [address] Performed By: #### U CGP ####[facility] [id number] [place] [address] Vital Signs Date Time Vital Sign Value Performing Clinician Kandice vogel 04-16-2024 10:32-0400 Body temperature 97.7 [degF] Martinez Phelan [facility] 04-16-2024 10:32-0400 Diastolic blood pressure 83 mm[Hg] Martinez Phelan [facility] 04-16-2024 10:32-0400 Heart rate 63 /min Martinez Phelan [facility] 04-16-2024 10:32-0400 SaO2% (BldA) [Mass fraction] 99 % Martinez Phelan [facility] 04-16-2024 10:32-0400 Systolic blood pressure 133 mm[Hg] [place] Phelan [facility] Encounters Encounter Date Encounter Type Care Provider Facility Start: 04-16-2024 End: 04-16-2024 Emergency department patient visit Martinez Phelan [facility] Start: 03-24-2023 End: 03-25-2023 ambulatory ELA SPASIC Facility: Start: 12-23-2022 End: 12-24-2022 ambulatory ELA SPASIC Facility: Start: 12-10-2022 End: 12-10-2022 ambulatory Ela E Spasic [facility] Work Phone: Start: 12-10-2022 End: 12-10-2022 Departed Referred CHIEF DIVERSITY OFFICER-C Ela Salmeron Work Phone: [facility] Start: 01-26-2018 End: 01-27-2018 Ambulatory BETH MARTINEZ [facility] Procedures Date Procedure Procedure Detail Performing Clinician Start: 01-26-2018 C.TRACHOMATIS N.GONORRHOEAE DNA, URINE BETH MARTINEZ History of repair of inguinal hernia [place] Phelan Immunizations Immunization Date Immunization Notes Care Provider Milo castorena 07-11-2019 tetanus and diphther ia toxoids, adsorbed, preservative free, for adult use (5 Lf of tetanus toxoid and 2 Lf of diphtheria toxoid) Martinez Phelan [facility] Payers Date Payer Category Payer Self-pay [id number] 2016 Medicare [id number] 1980 Unknown [id number] 1982 Unknown [id number] 1982 Unknown [id number] 1959 Medicaid [id number] 41 [id number] 1957 Medicare [id number] Unknown [id number] [id number] [id number] Social History Date Type Detail Facility Tobacco smoking stat [facility] Unknown if ever smoked [facility] Work Phone: Start: 1980 Sex Assigned At Male [facility] Start: 04-06-2021 Tobacco smoking status Light t obacco smoker (finding) [facility] Sex Assigned At Male [facility] Functional Status Date Assessment Result Facility 04-16-2024 Functional Status N/A [facility] Discharge instructions 04-16-2024 Note Date & Type Note Facility 04-16-2024 Hospital Discharg e instructions Patient Education 04/16/2024 11:25:22 Dental Pain Dental Pain Dental pain is often a sign that something is wrong with your teeth or gums. It is also something that can occur following dental treatment. If you have dental pain, it is important to contact your dental care provider, especially if the cause of the pain has not been determined. Dental pain may be of varying intensity and can be caused by many things, including: Tooth decay (cavities or caries). Cavities are caused by bacteria that produce acids that irritate the nerve of your tooth, making it sensitive to air and hot or cold temperatures. This eventually causes discomfort or pain. Abscess or infection. Once the bacteria reach the inner part of the tooth (pulp), a bacterial infection (dental abscess) can occur. Pus typically collects at the end of the root of a tooth. Injury. A crack in the tooth. Gum recession exposing the root, and possibly the nerves, of a tooth. Gum (periodontal)disease. Abnormal grinding or clenching. Poor or improper home care. An unknown reason (idiopathic). Your pain may be mild or severe. It may occur when you are: Chewing. Exposed to hot or cold temperatures. Eating or drinking sugary foods or beverages, such as soda or candy. Your pain may be constant, or it may come and go without cause. Follow these instructions at home: The following actions may help to lessen any discomfort that you are feeling before or after getting dental care. Medicines Take bgph-sov-fuvenxj and prescription medicines only as told by your dental care provider. If you were prescribed an antibiotic medicine, take it as told by your dental care provider. Do not stop taking the antibiotic even if you start to feel better. Eating and drinking Avoid foods or drinks that cause you pain, such as: Very hot or very cold foods or drinks. Sweet or sugary foods or drinks. Managing pain and swelling Ice can sometimes be used to reduce pain and swelling, especially if the pain is following dental treatment. If directed, put ice on the painful area of your face. To do this: ?Put ice in a plastic bag. ?Place a towel between your skin and the bag. ?Leave the ice on for 20 minutes, 2 3 times a day. ?Remove the ice if your skin turns bright red. This is very important. If you cannot feel pain, heat, or cold, you have a greater risk of damage to the area. Brushing your teeth To keep your mouth and gums healthy, brush your teeth twice a day using a fluoride toothpaste. Use a toothpaste made for sensitive teeth as directed by your dental care provider, especially if the root is exposed. Always brush your teeth with a soft-bristled toothbrush. This will help prevent irritation to your gums. General instructions Floss at least once a day. Do not apply heat to the outside of the face. Gargle with a mixture of salt and water 3 4 times a day or as needed. To make salt water, completely dissolve 1 tsp (3 6 g) of salt in 1 cup (237 mL) of warm water. Keep all follow-up visits. This is important. Contact a dental care provider if: You have any unexplained dental pain. Your pain is not controlled with medicines. Your symptoms get worse. You have new symptoms. Get help right away if: You are unable to open your mouth. You are having trouble breathing or swallowing. You have a fever. You notice that your face, neck, or jaw is swollen. These symptoms may represent a serious problem that is an emergency. Do not wait to see if the symptoms will go away. Get medical help right away. Call your local emergency services (911 in the [place] Do not drive yourself to the hospital. Summary Dental pain may be caused by many things, including tooth decay and infection. Your pain may be mild or severe. Take pbub-nnj-mwlrivd and prescription medicines only as told by your dental care provider. Watch your dental pain for any changes. Let your dental care provider know if your symptoms get worse. This information is not intended to replace advice given to you by your health care provider. Make sure you discuss any questions you have with your health care provider. Document Revised: 08/06/2021 Document Reviewed: 08/06/2021 [employer] Patient Education 2022 [employer] Follow Up Care 04/16/2024 10:31:32 With:[facility] Address: [facility] [place] [address]- Business (1) When:04/19/2024 10:50:07 Comments:Dentistry follow-up [facility] Evaluation + Plan note Note Date & Type Note Facility Evaluation + Plan note No data available for this section [facility] Evaluation note Note Date & Type Note Facility Evaluation note No assessment information availa [facility] Work Phone: Progress note Note Date & Type Note Facility Progress note No data available for this section [facility] Summary Purpose Family History No Family History Records FoundNo Family History Records FoundNo Family History Records FoundNo Family History Records FoundNo Family History Records Found No data available for this section Advance Directives Advance Directive Response Recorded Date/ Time Advance Directives No October 10:17am Chief Complaint and Reason for Visit Chief Complaint Atypical chest pain Additional Source Comments (unrecognized sect ion and content) No Status Records FoundNo Status Records FoundNo Status Records FoundNo Status Records FoundNo Status Records Found INFORMATION SOURCE (unrecogn ized section and content) DATE CREATED AUTHOR 05/06/2018 [facility] DATE CREATED AUTHOR AUTHOR'S ORGANIZ ATION 05/19/2018 [facility] DATE CREATED AUTHOR AUTHOR'S ORGANIZ ATION 01/16/2023 [facility] DATE CREATED AUTHOR AUTHOR'S ORGANIZ ATION 03/28/2023 [facility] DATE CREATED AUTHOR AUTHOR'S ORGANIZ ATION 04/16/2024 [facility] Care Teams (unrecognized sec tion and content) Personnel Name: KATHERINE GIMENEZ MD Address: Address: [address] [place] [id number] Name: Bren Hayden Team Status: Inactive Member Role Status Dates Ela Salmeron CHIEF DIVERSITY OFFICER-C Attending Provider Active Goals (unrecognized section and content) Goals may be documented in a n alternate section No data available for this section FOR RECORDS PERTAINING TO PATIENTS WHO [...] BE BASED ON THE PRIMARY CLINICAL RECORDS. [facility] [employer] provides no warranty or guarantee of the accuracy or completeness of information in this document.
[2024-05-01 15:38] VITALS: BP 130/78; PULSE 60; TEMP 36.8; O2SAT 97
--- NOTE | 2024-05-01 15:46 | ED_ITS ---
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 He is noted to have multiple dental caries. History and physical were obtained with women designer. Patient has had no drainage. No fevers or vomiting. No medications taken prior to arrival. He has an appointment with a dentist next week on the Related Data Previous Rx's ?Medication ?Instructions ?Recorded ketorolac 10 mg tablet 10 mg PO TID PRN pain #10 tabs 12/29/23 methylprednisolone 4 mg tablets in See Rx Instructions .Route 12/29/23 a dose pack (Medrol (Robby)) .COMPLEX #21 ea mupirocin 2 % topical ointment 1 applic topical TID 14 days #15 01/19/24 grams sulfamethoxazole 800 1 tab PO BID 7 days #14 tabs 01/19/24 mg-trimethoprim 160 mg tablet (Bactrim DS) amoxicillin 500 mg capsule 500 mg PO TID 10 days #30 caps 05/01/24 hydrocodone 5 mg-acetaminophen 325 1 tab PO Q6H PRN pain 2 days #8 05/01/24 mg tablet tabs ketorolac 10 mg tablet 10 mg PO TID PRN pain #10 tabs 05/01/24 Allergies Allergy/AdvReac Type Severity Reaction Status Date / Time pertussis vaccine,adsorbed AdvReac Intermediate rash Verified 07/06/23 20:25 cephalexin AdvReac Severe Vomiting Uncoded 07/06/23 20:25 Review of Systems ROS Constitutional Denies: fever or chills Ears, nose, mouth, and throat Reports: mouth pain; Denies: throat pain or nasal congestion Cardiovascular Denies: chest pain Respiratory Denies: shortness of breath or cough Gastrointestinal Denies: nausea or vomiting Integumentary/Breast Denies: rash Neurological Denies: headache Hematologic/Lymphatic Denies: easy bruising or easy bleeding PFSH PFSH Social History Smoking status: Current every day smoker Exam Narrative Exam Narrative: Gen.: Awake, alert, in no distress Head: Normocephalic, atraumatic ENT: Moist mucous membranes, Multiple dental caries with eroded tooth #14, root exposed. No abscess or drainage. No redness or swelling under the tongue Respiratory: No respiratory distress Extremities: Moves extremities equally Psych: Normal mood and affect Neuro: No focal neuro deficit Skin: Warm, dry, intact Constitutional Vital Signs, click to edit/add: Last Vital Signs Temp 98.3 F 05/01/24 15:38 Pulse 60 05/01/24 15:38 Resp 05/01/24 15:38 BP 130/78 05/01/24 15:38 Pulse Ox 97 05/01/24 15:38 O2 Del Method Room Air 05/01/24 15:38 Course Vital Signs Vital signs: Vital Signs Temperature 98.3 F 05/01/24 15:38 Pulse Rate 60 05/01/24 15:38 Respiratory Rate 05/01/24 15:38 Blood Pressure 130/78 05/01/24 15:38 Pulse Oximetry 97 05/01/24 15:38 Oxygen Delivery Method Room Air 05/01/24 15:38 Temperature 98.3 F 05/01/24 15:38 Pulse Rate 60 05/01/24 15:38 Respiratory Rate 05/01/24 15:38 Blood Pressure 130/78 05/01/24 15:38 Pulse Oximetry 97 05/01/24 15:38 Oxygen Delivery Method Room Air 05/01/24 15:38 MDM - Dental/Oral MDM Narrative Medical decision making narrative: Patient treated for dental pain and dental caries with topical analgesia, short course of analgesics and NSAIDs and amoxicillin for antibiotic coverage. Follow-up dental as scheduled and return to the ER if symptoms change or worsen Medical Records Attestation: I reviewed the patient's medical records. Discharge Plan Discharge Stand Alone Forms: Portal Instructions Chief Complaint: Dental/Oral Clinical Impression: Toothache, Dental caries Patient Disposition: Home, Self-Care Time of Disposition Decision: 15:43 Condition: Good Prescriptions / Home Meds: New amoxicillin 500 mg capsule 500 mg PO TID 10 Days Qty: 30 0RF hydrocodone-acetaminophen 5-325 mg tablet 1 tab PO Q6H PRN (Reason: pain) 2 Days Qty: 8 0RF Rx Instructions: DX: K08.89 ketorolac 10 mg tablet 10 mg PO TID PRN (Reason: pain) Qty: 10 0RF No Action ketorolac 10 mg tablet 10 mg PO TID PRN (Reason: pain) Qty: 10 0RF methylprednisolone [Medrol (Robby)] 4 mg tablets,dose pack See Rx Instructions .ROUTE .COMPLEX Qty: 21 0RF Rx Instructions: Taper as directed mupirocin 2 % ointment 1 applic topical TID 14 Days Qty: 15 0RF sulfamethoxazole-trimethoprim [Bactrim DS] 800-160 mg tablet 1 tab PO BID 7 Days Qty: 14 0RF Print Language: Frisian Instructions: Toothache (ED) Additional Instructions: Follow up with your dentist as scheduled Use one cotton ball on the side of the painful tooth, leave the cotton ball for 5-10 minutes and then throw it away. You can repeat this every 3-4 hours. Referrals: Physician,Non-Staff, MD [Primary Care Provider] - 1 week
[2024-05-01] MEDS: BENZOCAINE 30 ML, lidocaine HCL 15 ML MM (15:50)
== END 2024-05-01 15:54 | disposition home or self-care (01) ==
PROVIDERS: Emergency Provider Emergency Medicine Emergency Medical Services
DX: K02.9 Dental caries, unspecified (principal); K08.89 Other specified disorders of teeth and supporting structures; H91.93 Unspecified hearing loss, bilateral; F17.200 Nicotine dependence, unspecified, uncomplicated
CPT/HCPCS: 99283

== ENCOUNTER 2024-07-01 17:47 | Emergency (ER) | payer MEDICARE, MEDICAID, SELFPAY ==
[2024-07-01 17:54] VITALS: BP 120/78; PULSE 78; TEMP 36.6; O2SAT 97; BMI 24.4
--- OUTSIDE RECORDS SUMMARY | 2024-07-01 17:57 | XMS_ITS | CCD ---
Author Organization [facility] Inform ion Partnership [facility] Care Team Providers Care Sizing Machine Tender Name Role Phone BETH MARTINEZ Unavailable Unavailable Spasic, PETROLEUM REFINERY LABORER-C Ela Bey Attending Provider Spasic, Ela Bey Admitting Unavailable Spasic, Ela Bey Attending Unavailable SPASIC, ELA Admitting Unavailable SPASIC, ELA Attending Unavailable SPASIC, ELA Primary Care Unavailable DR RAMESH ROSE V Consulting Unavailable NEFCYKAYODE Consulting Unavailable SPASIC, ELA Consulting Unavailable SPASIC, ELA Admitting Unavailable SPASIC, ELA Attending Unavailable SPASIC, ELA Primary Care Unavailable SPASIC, ELA Consulting Unavailable KATHERINE GIMENEZ Primary Care Physician Bren Holley Unavailable Unavailable Martinez Phelan Attending Unavailable Allergies Allergy Classification Reported Allergen(s) Allergy Type Date of Onset Reaction(s) Facility (2 sources) 4-Aminobenzoic Acid; Translations: [pertussis vaccines] Drug Allergy 7 [facility] Repository (2 sources) Cephalexin; Translations: [cephalexin] Drug Allergy 7 [facility] Repository (1 source) Cephalexin; Translations: [cephalexin] Drug Allergy Vomiting (disorder) [facility] (1 source) Bordetella pertussis antigen (substance); Translations: [pertussis vaccines] Drug allergy Itching [facility] Medications Current Medications Medication Drug Class(es) Dates Sig (Normalized) Sig (Original) acetaminophen 325 mg / HYDROcodone bitartrate 5 mg oral tablet (2 sources) Opioid Agonist Start: 04-06-2021 take 1 tablet by mouth every six hours as needed for pain [place] 325 mg-5 mg oral tablet 1 tab(s), Oral, q6hr as needed for pain, 7 tab(s), Refill(s) 0, [facility], 185, cm, 04/06/21 10:33:00 EDT, Height/Length Dosing, 81.9, kg, 04/06/21 10:33:00 EDT, Weight Dosing Start Date: 04/06/21 Status: Ordered Start: 05-22-2019 [place] 325 mg-5 mg oral tablet 1 tab(s), Oral, q4hr for pain, 12 tab(s), Refill(s) 0 Start Date: 05/22/19 Status: Ordered naproxen 500 mg oral tablet (2 sources) Nonsteroidal Anti-inflammatory Drug Start: 04-06-2021 take 1 tablet by mouth twice daily Naprosyn 500 mg Tab 500 mg = 1 tab(s), Oral, BID, # 20 tab(s), Refills(s) 0, Pharmacy: [facility]/pharmacy #[id number], 185.4, cm, 04/16/24 10:42:00 EDT, Height/Length [...] day(s), # 30 tab(s), Refills(s) 0, Pharmacy: [facility]/pharmacy #[id number], 185.4, cm, 04/16/24 10:42:00 EDT, Height/Length [...] Test Name Value Interpretation Reference Range Facility ED Note-Physicianon 05-02-20 ED Note-Physician Basic Information Time Seen: Victor M Hairston PA-C 04/16/2024 10:32 History of Present Illness 43-year-old male comes to the ED for evaluation of dental pain. Patient abdominal pain a couple of days ago. No fever, chills, nausea, vomiting. No difficulty with speaking or swallowing. No prior treatments. Of note patient is deaf, communicates via sign language, and iPad compressor station chief engineer was used. Review of Systems A 10 point review of systems is negative except as noted above. Medical and Surgical History: Reviewed and noted Social history: Lives at home Tobacco: Denies Physical Exam Vitals & Measurements T: 36.5 ?C(Oral) HR: 63(Peripheral) BP: 133/83 SpO2: 99% HT: 185.42 cm WT: 80.5 kg BMI: 23.41 Nurses notes and vital signs reviewed and patient is not hypoxic. General: The patient appears well, no acute distress. Skin: Warm, dry. Head: Atraumatic. Neck: No soft tissue swelling. Eye: Normal conjunctiva. Ears, Nose, Mouth, and Throat: Tenderness around the #05 tooth with gingival erythema. No swelling. No evidence of abscess formation. No dental instability or bleeding. No tonsillar hypertrophy or exudates. Uvula is midline. No associated stridor, trismus or drooling. Cardiovascular: Strong distal pulses. Chest wall: Respiratory: Respirations are nonlabored. Back: Normal range of motion. Musculoskeletal: Normal ROM with no gross deformity. Gastrointestinal: Urological: Neurological: Awake and alert. No focal deficits. Follows commands. Psychiatric: Cooperative. Medical Decision Making No evidence of acute fractures. No trismus, stridor or drooling. No evidence of abscess formation requiring incision and drainage. No fever or chills. No airway compromise. Patient treated with pain medications and antibiotics. Given dentistry follow-up. Patient was encouraged to return to the ED if symptoms worsen or change. Assessment/Plan Pain, dental (K08.89: Other specified disorders of teeth and supporting structures) Orders: naproxen, 500 mg = 1 tab(s), Oral, BID, # 20 tab(s), Refills(s) 0, Pharmacy: [facility]/pharmacy #[id number], 185.4, cm, 04/16/24 10:42:00 EDT, Height/Length Dosing, 80.5, kg, 04/16/24 10:42:00 EDT, Weight Dosing penicillin V potassium, 500 mg = 1 tab(s), Oral, TID, Take one tab by mouth 3 times a day. # 30, X 10 day(s), # 30 tab(s), Refills(s) 0, Pharmacy: [facility]/pharmacy #[id number], 185.4, cm, 04/16/24 10:42:00 EDT, Height/Length Dosing, 80.5, kg, 04/16/24 10:42:00 EDT, Weight Dosing Disposition Plan Patient Discharge Condition Disposition: Discharged home Condition: Improved and stable Counseled: Patient and/or family were counseled to workup, results, treatment plan and follow-up recommendations Discharge Prescription List Prescriptions Naprosyn 500 mg Tab, 500 mg= 1 tab(s), Oral, BID penicillin V potassium 500 mg Tab, 500 mg= 1 tab(s), Oral, TID Follow-up With When Contact Information [employer] [facility] In 3 days 04/19/[address] [place] [address] [place] [phone] Business (1) Additional Instructions: Dentistry follow-up Patient Education Dental Pain Attestation I performed a substantive part of the MDM during the patient?s E/M visit. I personally made or approved the documented management plan and acknowledge its risk of complications. (Independent Interpretation) My (EKG/X-Ray/US/CT) interpretation as above. (Discussion) Management/test interpretation discussed with APC. This report was transcribed using voice recognition software. Every effort was made to ensure accuracy, however, inadvertently computerized fisher quahog mistakes may be present. Appropriate healthcare PPE was used in evaluating this patient. Problem List/Past Medical History Ongoing Smoker Historical Deaf mutism Inguinal hernia Umbilical hernia Procedure/Surgical History History of repair of inguinal hernia. Medications Inpatient No active inpatient medications Home Naprosyn 500 mg Tab, 500 mg= 1 tab(s), Oral, BID Naprosyn 500 mg Tab, 500 mg= 1 tab(s), Oral, BID, PRN [place] 325 mg-5 mg oral tablet, 1 tab(s), Oral, q4hr, PRN [place] 325 mg-5 mg oral tablet, 1 tab(s), Oral, q6hr, PRN penicillin V potassium 500 mg Tab, 500 mg= 1 tab(s), Oral, TID Zofran ODT 8 mg Tab-Dis, 8 mg= 1 tab(s), Oral, q8hr, PRN, 1 refills Allergies cephalexin (Vomiting) pertussis vaccines (Itching) Social History Alcohol - Low Risk, 01/12/2016 Current, Beer, 1-2 times per week, 04/06/2021 Current, 01/12/2016 Substance Abuse - Denies Substance Abuse, 01/12/2016 Current, 04/06/2021 Tobacco - High Risk, 01/12/2016 4 or less cigarettes(less than 1/4 pack)/day in last 30 days Tobacco Use:. Cigars, 04/06/2021 Current Every Day Smoker, Cigarettes, 01/12/2016 Lab Results No qualifying data available. Diagnostic Results No qualifying data available. [facility] Comment on above: Result Comment: Elec tronically Signed By: Victor M Hairston PA-C\.br\Date and Time Signed: 04/16/24 11:33 EDT\.br\Electronically Co-Signed By: Martinez Phelan MD\.br\Date and Time Co-Signed: 05/02/24 09:04 EDT Consent for Treatmenton Consent for Treatment [id number] 0TIFF [facility] Discharge Instructionson Discharge Instructions [id number] .00TIFF [facility] Discharge Instructions [id number] .00TIFF [facility] ED Clinical Summaryon 2023 ED Clinical Summary [place] [id number] ED Clinical Summary Person Information Name: KELI HATHAWAY Jr [facility] Age[facility] 43 Years : 1980 Sex: Male Language: Occitan PCP: KATHERINE GIMENEZ MD Marital Status: Phone: [phone] Visit Id: Visit Reason: Dental pain; TOOTH [...] 04/16/2024 11:25:21 04/16/2024 11:25:21 04/16/2024 11:25:21 ADDRESS: [address] [place] [phone] PHYS DOC NOTES: MEDICAL INFORMATION: Prescriptions Given: New Medications [id number], [address], [place] [id number], [phone] penicillin V potassium (penicillin V potassium 500 mg Tab) 1 Tablets By Mouth 3 times a day for 10 Days. Take one tab by mouth 3 times a day. # 30. Refills: 0. Medications to Continue Taking That Have Changed [facility]/pharmacy #[id number], [address], [place] [id number], [phone] START: naproxen (Naprosyn 500 mg Tab) 1 Tablets By Mouth 2 times a day. Refills: 0. Other Medications START: naproxen (Naprosyn 500 mg Tab) 1 Tablets By Mouth 2 times a day as needed Pain. Refills: 0. Medications to Continue with No Changes Other Medications acetaminophen-hydrocod one ([place] 325 mg-5 mg oral tablet) 1 Tablets By Mouth every 4 hours as needed for pain. Refills: 0. acetaminophen-hydrocod one ([place] 325 mg-5 mg oral tablet) 1 Tablets By Mouth every 6 hours as needed as needed for pain. Refills: 0. ondansetron (Zofran ODT 8 mg Tab-Dis) 1 Tablets By Mouth every 8 hours as needed Nausea. Refills: 1. PATIENT EDUCATION INFORMATION: Instructions: Dental Pain Follow up: With: Address: When: [address] [address] Business (1) In 3 days 04/19/2024 Comments: Dentistry follow-up DIAGNOSIS: Pain, dental Normal [facility] ED Noteon 04-16-2024 ED Note [id number] .00TIFF Normal [facility] ED Patient Education Noteon 04-16-2024 ED Patient [...] after getting dental care. Medicines ? Take lnds-tbh-moyixzj and prescription medicines only as told by [...] may be mild or severe. ? Take wful-uzy-iiicywb and prescription medicines only as told by [...] provider. Document Revised: 08/06/2021 Document Reviewed: 08/06/2021 [employer] Patient Education ? 2022 [employer] Normal [facility] ED Patient Summaryon 024 ED Patient Summary [place] [id number] Patient Discharge Instructions Person Information Name: KELI HATHAWAY Jr Age: 43 Years Arrival Date: 04/16/2024 10:29:50 Discharge Diagnosis: Pain, dental Primary Care Physician: KATHERINE GIMENEZ MD Provider Information Primary Provider: Martinez Phelan MD Advanced Collection Team Lead:Victor M Hairston PA-C The exam and treatment you received in the Emergency Department were for an urgent problem and are not intended as complete care. It is important that you follow up with a doctor, nurse practitioner, or physician?s registered sales assistant for ongoing care. If your symptoms become worse or you do not improve as expected and you are unable to reach your usual health care provider, you should return to the Emergency Department. We are available 24 hours a day. KELI HATHAWAY Jr has been given the following list of patient education materials, prescriptions and follow-up instructions: Follow-up Instructions: With: Address: When: [employer] [address] [place], [place] [phone] Business (1) In 3 days 04/19/2024 Comments: Dentistry follow-up In the event that this physician does not participate in your insurance network, please consult with your insurance company to find a nearby participating provider. Patient Education Materials: Dental Pain A MESSAGE TO ALL PATIENTS REGARDING OPIOIDS PRESCRIPTION OPIOIDS: WHAT YOU NEED TO KNOW Prescription opioids can be used to help relieve kynpduie-zc-ffzwmx pain and are often prescribed following a [...] be struggling with addiction, tell your health health care administrator and ask for guidance or call [facility] National Helpline at 1-279-723-VXIS (more content not included)... Normal [facility] ECHO LIMITED STUDYon 023 ECHO LIMITED STUDY Patient Name Site KELI Corbett [facility] Account No Medical Record Number Age Sex Date Time [id number] [facility]:[id number] M 03/24/2023 10:03 At the Request [...] Galicia M.D. on 03/24/2023 at 18:14 Normal [facility] XR CSPINE 2_3 VIEWSon 2022 XR [...] by: RAMESH ROSE Date: 2022-12-24 07:41 Normal [facility] US THYROIDon 12-23-2022 US THYROID EXAM: [...] by: KAYODE ONEILL Date: 2022-12-23 15:22 Normal [facility] XR CHEST 2 Von 12-23-2022 XR [...] by: KAYODE ONEILL Date: 2022-12-23 15:25 Normal [facility] Albumin [Mass/volume] in Ser um or PlasmaOrdered By: Ela Salmeron on 12-10-2022 Albumin [Mass/Vol] 3.9 g/dL Normal 3.2-5.5 [facility] Comment on above: Order Comment: Reaso n for Exam Atypical chest pain Performed By: #### H SCRP, CBC, CMP, TSH3 wRFLX, FE and TIBC, LIPID #### [facility] [address] [place] [address] Automated basophil %Ordered By: Ela Salmeron on 12-10-2022 Basophils/100 WBC (Bld) 0.8 % Normal . [facility] Comment on above: Order Comment: Reaso n for Exam Atypical chest pain Performed By: #### H SCRP, CBC, CMP, TSH3 wRFLX, FE and TIBC, LIPID #### [facility] [address] [place] [address] Automated basophil countOrde red By: Ela Sharpc on 12-10-2022 Basophils (Bld) [#/Vol] 0.1 10*3/uL Normal 0.0-0.2 [facility] Comment on above: Order Comment: Reaso n for Exam Atypical chest pain Result Comment: PERF ORMED BY: [place] [address] PATHOLOGIST LAB COORDINATOR KAIA ORELLANA M.D. Performed By: #### H SCRP, CBC, CMP, TSH3 wRFLX, FE and TIBC, LIPID #### [address] Automated blood monocyte cou ntOrdered By: Ela Salmeron on 12-10-2022 Monocytes (Bld) [#/Vol] 0.7 10*3/uL Normal 0.0-0.8 [facility] Comment on above: Order Comment: Reaso n for Exam Atypical chest pain Performed By: #### H SCRP, CBC, CMP, TSH3 wRFLX, FE and TIBC, LIPID #### [address] Automated eosinophil %Ordere d By: Ela Salmeron on 12-10-2022 Eosinophils/100 WBC (Bld) 3.2 % Normal . [facility] Comment on above: Order Comment: Reaso n for Exam Atypical chest pain Performed By: #### H SCRP, CBC, CMP, TSH3 wRFLX, FE and TIBC, LIPID #### [address] Automated eosinophil countOr dered By: Ela Salmeron on 12-10-2022 Eosinophils (Bld) [#/Vol] 0.3 10*3/uL Normal 0.0-0.45 [facility] Comment on above: Order Comment: Reaso n for Exam Atypical chest pain Performed By: #### H SCRP, CBC, CMP, TSH3 wRFLX, FE and TIBC, LIPID #### [facility] [address] [place] [address] [place] Automated monocyte %Ordered By: Ela Salmeron on 12-10-2022 Monocytes/100 WBC (Bld) 8.5 % Normal . [facility] Comment on above: Order Comment: Reaso n for Exam Atypical chest pain Performed By: #### H SCRP, CBC, CMP, TSH3 wRFLX, FE and TIBC, LIPID #### [facility] [address] [place] [address] [place] Automated neutrophil %Ordere d By: Ela Salmeron on 12-10-2022 Neutrophils/100 WBC (Bld) 59.1 % Normal . [facility] Comment on above: Order Comment: Reaso n for Exam Atypical chest pain Performed By: #### H SCRP, CBC, CMP, TSH3 wRFLX, FE and TIBC, LIPID #### [facility] [address] [place] [address] [place] C reactive protein [Mass/vol ume] in Serum or Plasma by High sensitivity methodOrdered By: Ela Salmeron on 12-10-2022 CRP High sensitivity method [Mass/Vol] 5.5 mg/L [facility] Comment on above: Cardiovascular Risk Classification (AHA/CDC)hsCRP [...] 12-10-2022 Transferrin [Mass/Vol] 203 mg/dL Normal 180-380 [facility] Comment on above: Order Comment: Reaso n for Exam Atypical chest pain Performed By: #### H SCRP, CBC, CMP, TSH3 wRFLX, FE and TIBC, LIPID #### [facility] [address] Cholesterol [Mass/volume] in Serum or PlasmaOrdered By: Ela Salmeron on 12-10-2022 Cholesterol [Mass/Vol] 146 mg/dL Normal 140-200 [facility] Comment on above: Chol [...] TSH3 wRFLX, FE and TIBC, LIPID #### [facility] [address] Cholesterol in LDL Calc [Mas s/Vol]Ordered By: Ela Salmeron on 12-10-2022 Cholesterol in LDL [Mass/Vol] 81 mg/dL 0-100 [facility] Comment on above: LDL ATP III CLASSIFI CATIONLDL less than 100 mg/dL OptimalLDL 100-129 mg/dL Near or above optimalLDL 130-159 mg/dL Borderline highLDL 160-189 mg/dL HighLDL greater than 189 mg/dL Very high Cholesterol in VLDL Calc [Ma ss/Vol]Ordered By: Ela Salmeron on 12-10-2022 Cholesterol in VLDL [Mass/Vol] 33 mg/dL [facility] Complete Blood Count Auto Di ffon 12-10-2022 Mean Corpuscular HGB Conc 33.7 g/dL Normal 32.5-35.6 [facility] Comment on above: Order Comment: Reaso n for Exam Atypical chest pain Performed By: #### H SCRP, CBC, CMP, TSH3 wRFLX, FE and TIBC, LIPID #### [facility] [address] NRBC% 0.1 /100{WBC} Normal 0-0.5 [facility] Comment on above: Order Comment: Reaso n for Exam Atypical chest pain Performed By: #### H SCRP, CBC, CMP, TSH3 wRFLX, FE and TIBC, LIPID #### [facility] [address] Comprehensive Metabolic Pane noemy 12-10-2022 ALT [Catalytic activity/Vol] 13 U/L Normal 10-60 [facility] Comment on above: Order Comment: Reaso n for Exam Atypical chest pain Performed By: #### H SCRP, CBC, CMP, TSH3 wRFLX, FE and TIBC, LIPID #### [facility] [address] [place] [address] Estimated GFR ( Anyi > 60 Normal [facility] Comment on above: Order Comment: Reaso n for Exam Atypical chest pain Result Comment: GFR estimated reference range: According to KDOQI guidelines, <60 ml/min/1.73m2 is sufficient to diagnose a patient with chronic kidney disease. Performed By: #### H SCRP, CBC, CMP, TSH3 wRFLX, FE and TIBC, LIPID #### [facility] [address] [place] [address] Estimated GFR (Non- Am > 60 Normal [facility] Comment on above: Order Comment: Reaso n for Exam Atypical chest pain Performed By: #### H SCRP, CBC, CMP, TSH3 wRFLX, FE and TIBC, LIPID #### [facility] [address] [place] [address] Erythrocyte distribution wid th [Ratio] by Automated countOrdered By: Ela Salmeron on 12-10-2022 Erythrocyte distribution width (RBC) [Ratio] 12.8 % Normal 12.0-14.8 [facility] Comment on above: Order Comment: Reaso n for Exam Atypical chest pain Performed By: #### H SCRP, CBC, CMP, TSH3 wRFLX, FE and TIBC, LIPID #### [facility] [address] [place] [address] Erythrocytes [#/volume] in B lood by Automated countOrdered By: Ela Salmeron on 12-10-2022 RBC (Bld) [#/Vol] 5.05 10*6/uL Normal 3.90-5.60 [facility] Comment on above: Order Comment: Reaso n for Exam Atypical chest pain Performed By: #### H SCRP, CBC, CMP, TSH3 wRFLX, FE and TIBC, LIPID #### [facility] [address] Estimated glomerular filtrat ion rate (GFR) non- AmericanOrdered By: Ela Salmeron on 12-10-2022 GFR/1.73 sq M.predicted among non-blacks MDRD (S/P/Bld) [Vol rate/Area] > 60 mL/Min [facility] Hematocrit [Volume Fraction] of Blood by Automated countOrdered By: Ela Salmeron on 12-10-2022 Hematocrit (Bld) [Volume fraction] 44.9 % Normal 38.8-50.0 [facility] Comment on above: Order Comment: Reaso n for Exam Atypical chest pain Performed By: #### H SCRP, CBC, CMP, TSH3 wRFLX, FE and TIBC, LIPID #### [facility] [address] Hemoglobin [Mass/volume] in BloodOrdered By: Ela Salmeron on 12-10-2022 Hemoglobin (Bld) [Mass/Vol] 15.1 g/dL Normal 13.0-17.0 [facility] Comment on above: Order Comment: Reaso n for Exam Atypical chest pain Performed By: #### H SCRP, CBC, CMP, TSH3 wRFLX, FE and TIBC, LIPID #### [facility] [address] [place] [id number] [place] High Sensitive CRPon 023 High Sensitive CRP 5.5 mg/L Normal [facility] Comment on above: Order Comment: Reaso n [...] for estimation of CVD risk. PERFORMED BY: [place] [address] PATHOLOGIST LAB COORDINATOR KAIA ORELLANA M.D. Performed By: #### H SCRP, CBC, CMP, TSH3 wRFLX, FE and TIBC, LIPID #### [address] Iron [Mass/volume] in Serum or PlasmaOrdered By: Ela Spasic on 12-10-2022 Iron [Mass/Vol] 140 ug/dL Normal 40-160 [facility] Comment on above: Order Comment: Reaso n for Exam Atypical chest pain Performed By: #### H SCRP, CBC, CMP, TSH3 wRFLX, FE and TIBC, LIPID #### [facility] [address] [place] [address] Iron and TIBC Profileon 11-16 % Iron Saturation 49.3 % Normal 20-50 [facility] Comment on above: Order Comment: Reaso n for Exam Atypical chest pain Performed By: #### H SCRP, CBC, CMP, TSH3 wRFLX, FE and TIBC, LIPID #### [facility] [address] [place] [address] Total Iron Binding Capacity 284 ug/dL Normal 255-450 [facility] Comment on above: Order Comment: Reaso n for Exam Atypical chest pain Performed By: #### H SCRP, CBC, CMP, TSH3 wRFLX, FE and TIBC, LIPID #### [place] [address] [place] Iron binding capacity [Mass/ volume] in Serum or PlasmaOrdered By: Ela Spasic on 12-10-2022 Iron binding capacity [Mass/Vol] 284 ug/dL 255-450 [facility] Iron saturation [Mass Fracti on] in Serum or PlasmaOrdered By: Ela Spasic on 12-10-2022 Iron saturation [Mass fraction] 49.3 % 20-50 [facility] Leukocytes [#/volume] correc aristeo for nucleated erythrocytes in Blood by Automated counOrdered By: Ela Salmeron on 12-10-2022 WBC corrected for nucl RBC Auto (Bld) [#/Vol] 8.7 10*3/uL 4.1-10.5 [facility] Leukocytes [#/volume] in Blo od by Automated countOrdered By: Ela Salmeron on 12-10-2022 WBC (Bld) [#/Vol] 8.7 10*3/uL Normal 4.1-10.5 [facility] Comment on above: Order Comment: Reaso n for Exam Atypical chest pain Performed By: #### H SCRP, CBC, CMP, TSH3 wRFLX, FE and TIBC, LIPID #### [facility] [address] Lipid Panelon 12-10-2022 LDL Cholesterol,Calculated 81 mg/dL Normal 0-100 [facility] Comment on above: Order Comment: Reaso n for Exam Atypical chest pain Result Comment: LDL ATP III CLASSIFICATION LDL less than 100 mg/dL Optimal LDL 100-129 mg/dL Near or above optimal LDL 130-159 mg/dL Borderline high LDL 160-189 mg/dL High LDL greater than 189 mg/dL Very high Performed By: #### H SCRP, CBC, CMP, TSH3 wRFLX, FE and TIBC, LIPID #### [facility] [address] Triglyceride w/Reflex 168 mg/dL High 35-149 [facility] Comment on above: Order Comment: Reaso [...] TSH3 wRFLX, FE and TIBC, LIPID #### [facility] [address] VLDL CHOLESTEROL 33 mg/dL Normal [facility] Comment on above: Order Comment: Reaso n for Exam Atypical chest pain Performed By: #### H SCRP, CBC, CMP, TSH3 wRFLX, FE and TIBC, LIPID #### [facility] [address] [place], [place] [address] [place] Lymphocytes [#/volume] in Bl ood by Automated countOrdered By: Ela Salmeron on 12-10-2022 Lymphocytes (Bld) [#/Vol] 2.5 10*3/uL Normal 1.00-4.8 [facility] Comment on above: Order Comment: Reaso n for Exam Atypical chest pain Performed By: #### H SCRP, CBC, CMP, TSH3 wRFLX, FE and TIBC, LIPID #### [facility] [address] Lymphocytes/100 leukocytes i n Blood by Automated countOrdered By: Ela Salmeron on 12-10-2022 Lymphocytes/100 WBC (Bld) 28.4 % Normal . [facility] Comment on above: Order Comment: Reaso n for Exam Atypical chest pain Performed By: #### H SCRP, CBC, CMP, TSH3 wRFLX, FE and TIBC, LIPID #### [facility] [address] [place] [address] [place] MCH [Entitic mass] by Automa aristeo countOrdered By: Ela Salmeron on 12-10-2022 MCH (RBC) [Entitic mass] 30.0 pg Normal 27.5-35.2 [facility] Comment on above: Order Comment: Reaso n for Exam Atypical chest pain Performed By: #### H SCRP, CBC, CMP, TSH3 wRFLX, FE and TIBC, LIPID #### [facility] [address] MCHC Auto (RBC) [Mass/Vol]Or dered By: Ela Salmeron on 12-10-2022 MCHC (RBC) [Mass/Vol] 33.7 g/dL 32.5-35.6 [facility] MCV [Entitic volume] by Auto mated countOrdered By: Ela Salmeron on 12-10-2022 MCV (RBC) [Entitic vol] 88.9 fL Normal 83.5-101 F [facility] Comment on above: Order Comment: Reaso n for Exam Atypical chest pain Performed By: #### H SCRP, CBC, CMP, TSH3 wRFLX, FE and TIBC, LIPID #### [facility] [address] Neutrophils [#/volume] in Bl ood by Automated countOrdered By: Ela Salmeron on 12-10-2022 Neutrophils (Bld) [#/Vol] 5.1 10*3/uL Normal 1.8-7.7 [facility] Comment on above: Order Comment: Reaso n for Exam Atypical chest pain Performed By: #### H SCRP, CBC, CMP, TSH3 wRFLX, FE and TIBC, LIPID #### [facility] [address] No Panel InformationOrdered By: Ela Salmeron on 12-10-2022 Estimated GFR () > 60 mL/Min [facility] Comment on above: GFR estimated refere nce range: According to KDOQI guidelines, <60 ml/min/1.73m2 is sufficient to diagnose a patient with chronic kidney disease. Pharmacy Creatinine Clearance (Chem N/A [facility] Nucleated erythrocytes [Pres ence] in Blood by Automated countOrdered By: Ela Salmeron on 12-10-2022 Nucleated RBC Auto Ql (Bld) 0.1 /100{WBC} 0-0.5 [facility] Platelet mean volume [Entiti c volume] in Blood by Automated countOrdered By: Ela Salmeron on 12-10-2022 Platelet mean volume (Bld) [Entitic vol] 6.8 fL Normal 6.6-10.1 [facility] Comment on above: Order Comment: Reaso n for Exam Atypical chest pain Performed By: #### H SCRP, CBC, CMP, TSH3 wRFLX, FE and TIBC, LIPID #### [facility] [address] Platelets [#/volume] in Bloo d by Automated countOrdered By: Ela Salmeron on 12-10-2022 Platelets (Bld) [#/Vol] 350 10*3/uL Normal 150-450 [facility] Comment on above: Order Comment: Reaso n for Exam Atypical chest pain Performed By: #### H SCRP, CBC, CMP, TSH3 wRFLX, FE and TIBC, LIPID #### [facility] [address] Protein [Mass/volume] in Ser um or PlasmaOrdered By: Ela Salmeron on 12-10-2022 Protein [Mass/Vol] 6.5 g/dL Normal 6.1-7.9 [facility] Comment on above: Order Comment: Reaso n for Exam Atypical chest pain Performed By: #### H SCRP, CBC, CMP, TSH3 wRFLX, FE and TIBC, LIPID #### [facility] [address] Serum globulin measurement b y calculation (mass/volume)Ordered By: Ela Salmeron on 12-10-2022 Globulin (S) [Mass/Vol] 2.6 g/dL Normal [facility] Comment on above: Order Comment: Reaso n for Exam Atypical chest pain Performed By: #### H SCRP, CBC, CMP, TSH3 wRFLX, FE and TIBC, LIPID #### [facility] [address] Serum or plasma alanine noyola otransferase measurement without P-5'-P (enzymatic activiOrdered By: Ela Salmeron on 12-10-2022 ALT No additional P-5'-P [Catalytic activity/Vol] 13 U/L 10-60 [facility] Serum or plasma albumin/glob ulin mass ratioOrdered By: Ela Salmeron on 12-10-2022 Albumin/Globulin [Mass ratio] 1.5 {ratio} Normal [facility] Comment on above: Order Comment: Reaso n for Exam Atypical chest pain Performed By: #### H SCRP, CBC, CMP, TSH3 wRFLX, FE and TIBC, LIPID #### [facility] [address] Serum or plasma alkaline monica sphatase measurement (enzymatic activity/volume)Ordered By: Ela Salmeron on 12-10-2022 ALP [Catalytic activity/Vol] 57 U/L Normal 32-92 [facility] Comment on above: Order Comment: Reaso n for Exam Atypical chest pain Performed By: #### H SCRP, CBC, CMP, TSH3 wRFLX, FE and TIBC, LIPID #### [facility] [address] Serum or plasma anion gap de terminationOrdered By: Ela Salmeron on 12-10-2022 Anion gap [Moles/Vol] 11.1 mmol/L Normal 6.0-15.0 [facility] Comment on above: Order Comment: Reaso n for Exam Atypical chest pain Performed By: #### H SCRP, CBC, CMP, TSH3 wRFLX, FE and TIBC, LIPID #### [facility] [address] [place] [address] Serum or plasma aspartate am inotransferase measurement (enzymatic activity/volume)Ordered By: Ela Salmeron on 12-10-2022 AST [Catalytic activity/Vol] 15 U/L Normal 10-42 [facility] Comment on above: Order Comment: Reaso n for Exam Atypical chest pain Performed By: #### H SCRP, CBC, CMP, TSH3 wRFLX, FE and TIBC, LIPID #### [address] Serum or plasma calcium marla urement (mass/volume)Ordered By: Ela Salmeron on 12-10-2022 Calcium [Mass/Vol] 9.1 mg/dL Normal 8.2-10.2 [facility] Comment on above: Order Comment: Reaso n for Exam Atypical chest pain Performed By: #### H SCRP, CBC, CMP, TSH3 wRFLX, FE and TIBC, LIPID #### [facility] [address] [place] [address] Serum or plasma chloride amelia surement (moles/volume)Ordered By: Ela Salmeron on 12-10-2022 Chloride [Moles/Vol] 101 mmol/L Normal 95-114 [facility] Comment on above: Order Comment: Reaso n for Exam Atypical chest pain Performed By: #### H SCRP, CBC, CMP, TSH3 wRFLX, FE and TIBC, LIPID #### [facility] [address] Serum or plasma creatinine m easurement with calculation of estimated glomerular filtrOrdered By: Ela Salmeron on 12-10-2022 Creatinine [Mass/Vol] 1.01 mg/dL Normal 0.64-1.27 [facility] Comment on above: Order Comment: Reaso n for Exam Atypical chest pain Performed By: #### H SCRP, CBC, CMP, TSH3 wRFLX, FE and TIBC, LIPID #### [facility] [address] Serum or plasma glucose marla urement (mass/volume)Ordered By: Ela Salmeron on 12-10-2022 Glucose [Mass/Vol] 89 mg/dL Normal 70-100 [facility] Comment on above: ADA recommended refe rence rangeRandom Glucose Reference Range is dependent on time and content of last meal. Glucose of more than 200 mg/dL in a nonstressed, ambulatory subject supports the diagnosis of Diabetes Mellitus. Order Comment: Reaso n for Exam Atypical chest pain Result Comment: [place] om Glucose Reference Range is dependent on time and content of last meal. Glucose of more than 200 mg/dL in a nonstressed, ambulatory subject supports the diagnosis of Diabetes Mellitus. ADA recommended reference range Performed By: #### H SCRP, CBC, CMP, TSH3 wRFLX, FE and TIBC, LIPID #### [facility] [address] Serum or plasma high density lipoprotein (HDL) cholesterol measurementOrdered By: Ela Salmeron on 12-10-2022 Cholesterol in HDL [Mass/Vol] 31 mg/dL Normal 29-71 [facility] Comment on above: HDL CHOL ATP-III CLA [...] TSH3 wRFLX, FE and TIBC, LIPID #### [facility] [address] Serum or plasma potassium me asurement (moles/volume)Ordered By: Ela Salmeron on 12-10-2022 Potassium [Moles/Vol] 4.4 mmol/L Normal 3.5-5.1 [facility] Comment on above: Order Comment: Reaso n for Exam Atypical chest pain Performed By: #### H SCRP, CBC, CMP, TSH3 wRFLX, FE and TIBC, LIPID #### [facility] [address] Serum or plasma sodium measu rement (moles/volume)Ordered By: Ela Salmeron on 12-10-2022 Sodium [Moles/Vol] 135 mmol/L Low 136-146 [facility] Comment on above: Order Comment: Reaso n for Exam Atypical chest pain Performed By: #### H SCRP, CBC, CMP, TSH3 wRFLX, FE and TIBC, LIPID #### [facility] [address] Serum or plasma total biliru bin measurement (mass/volume)Ordered By: Ela Salmeron on 12-10-2022 Bilirubin [Mass/Vol] 0.8 mg/dL Normal 0.3-1.2 [facility] Comment on above: Order Comment: Reaso n for Exam Atypical chest pain Performed By: #### H SCRP, CBC, CMP, TSH3 wRFLX, FE and TIBC, LIPID #### [facility] [address] Serum or plasma total carbon dioxide measurement (moles/volume)Ordered By: Ela Salmeron on 12-10-2022 CO2 [Moles/Vol] 27.3 mmol/L Normal 22.0-30.0 [facility] Comment on above: Order Comment: Reaso n for Exam Atypical chest pain Performed By: #### H SCRP, CBC, CMP, TSH3 wRFLX, FE and TIBC, LIPID #### [facility] [address] Serum or plasma total choles terol/high density lipoprotein (HDL) cholesterol mass ratOrdered By: Ela Salmeron on 12-10-2022 Cholesterol.total/Choles terol in HDL [Mass ratio] 4.7 {ratio} Normal <5.0 [facility] Comment on above: Order Comment: Reaso n for Exam Atypical chest pain Performed By: #### H SCRP, CBC, CMP, TSH3 wRFLX, FE and TIBC, LIPID #### [facility] [address] Serum or plasma urea nitroge n measurement (mass/volume)Ordered By: Ela Salmeron on 12-10-2022 Urea nitrogen [Mass/Vol] 10 mg/dL Normal 9-23 [facility] Comment on above: Order Comment: Reaso n for Exam Atypical chest pain Performed By: #### H SCRP, CBC, CMP, TSH3 wRFLX, FE and TIBC, LIPID #### [facility] [address] TSH DL <= 0.005 mIU/L QnOrde red By: Ela Salmeron on 12-10-2022 TSH Qn 1.02 m[IU]/L 0.45-5.33 [facility] Thyroid Stim Hormone w/Rflxo n 12-10-2022 Thyroid Stim Hormone w/Rflx 1.02 u[iU]/mL Normal 0.45-5.33 [facility] Comment on above: Order Comment: Reaso n for Exam Atypical chest pain Result Comment: PERF ORMED BY: [place] [address] PATHOLOGIST LAB COORDINATOR KAIA ORELLANA M.D. Performed By: #### H SCRP, CBC, CMP, TSH3 wRFLX, FE and TIBC, LIPID #### [facility] [address] Triglyceride [Mass/volume] i n Serum or PlasmaOrdered By: Ela Salmeron on 12-10-2022 Triglyceride [Mass/Vol] 168 mg/dL 35-149 F [facility] Comment on above: TRIG ATP III CLASSIF ICATIONTRIG less than 150 mg/dL NormalTRIG 150-199 mg/dL Borderline highTRIG 200-500 mg/dL High TRIG greater than 500 mg/dL Very highStandard traceable to the Center for Disease Conrtrol and Prevention (CDC) test method. Progress Noteon 02-06-2018 HIM IP Note OR Chemist Steroids Normal [facility] Chlamydia/GC DNA, Uron 01-27 Chlamydia Probe, Ur Negative Normal NEG [facility] Comment on above: Result Comment: CHLA MYDIA TRACHOMATIS DNA not detected by nucleic acid amplification. Performed By: #### U CGP ####[address] [id number] [place] [address] Gonorrhea Probe, Ur Negative Normal NEG [facility] Comment on above: Result Comment: NEIS SERIA GONORRHOEAE DNA not detected by nucleic acid amplification.[employer] [address] [place], [place] [id number] ([phone] Performed By: #### U CGP ####[facility] [address] [place] [address] Vital Signs Date Time Vital Sign Value Performing Clinician Shivi litnell 04-16-2024 10:32-0400 Body temperature 97.7 [degF] Martinez Phelan [facility] 04-16-2024 10:32-0400 Diastolic blood pressure 83 mm[Hg] Martinez Phelan [facility] 04-16-2024 10:32-0400 Heart rate 63 /min Martinez Phelan [facility] 04-16-2024 10:32-0400 SaO2% (BldA) [Mass fraction] 99 % Martinez Phelan [facility] 04-16-2024 10:32-0400 Systolic blood pressure 133 mm[Hg] Martinez Phelan [facility] Encounters Encounter Date Encounter Type Care Provider Facility Start: 04-16-2024 End: 04-16-2024 Emergency department patient visit Martinez Phelan [facility] Start: 03-24-2023 End: 03-25-2023 ambulatory ELA SPASIC Facility:[facility] Start: 12-23-2022 End: 12-24-2022 ambulatory ELA SPASIC Facility:[facility] Start: 12-10-2022 End: 12-10-2022 ambulatory Ela E Spasic [facility] Work Phone: Start: 12-10-2022 End: 12-10-2022 Departed Referred [employer] Ela Spasic Work Phone: [facility] Start: 01-26-2018 End: 01-27-2018 Ambulatory BETH MARTINEZ [facility] Procedures Date Procedure Procedure Detail Performing Clinician Start: 01-26-2018 C.TRACHOMATIS N.GONORRHOEAE DNA, URINE BETH MARTINEZ History of repair of inguinal hernia Martinez Phelan Immunizations Immunization Date Immunization Notes Care Provider Fa cility 07-11-2019 tetanus and diphther ia toxoids, adsorbed, preservative free, for adult use (5 Lf of tetanus toxoid and 2 Lf of diphtheria toxoid) Martinez Phelan [facility] Payers Date Payer Category Payer Self-pay [id number] 2016 Medicare [id number] 1980 Unknown [id number] 1980 Unknown [id number] 1980 Unknown [id number] 1957 Medicaid [id number] 1957 Medicare [id number] Unknown [id number] [id number] Social History Date Type Detail Facility Tobacco smoking stat [facility] Unknown if ever smoked [facility] Work Phone: Start: 1980 Sex Assigned At Male F [facility] Start: 04-06-2021 Tobacco smoking status Light t obacco smoker (finding) [facility] Sex Assigned At Male [facility] Functional Status Date Assessment Result Facility 04-16-2024 Functional Status N/A [facility] Discharge instructions 04-16-2024 Note Date & [...] or after getting dental care. Medicines Take qpsz-tbl-[id number] and prescription medicines only as told by [...] pain may be mild or severe. Take qmmt-fna-qiywrbe and prescription medicines only as told by [...] provider. Document Revised: 08/06/2021 Document Reviewed: 08/06/2021 [employer] Patient Education 2022 [employer]. Follow Up Care 04/16/2024 10:31:32 With:[employer] Address: [place] [address]- Business (1) When:04/19/2024 10:50:07 Comments:Dentistry follow-up [facility] Evaluation + Plan note Note Date & Type Note Facility Evaluation + Plan note No data available for this section [facility] Evaluation note Note Date & Type Note Facility Evaluation note [facility] Progress note Note Date & Type Note Facility Progress note No data available for this section [facility] Summary Purpose Family History No Family History Records FoundNo Family History Records FoundNo Family History Records FoundNo Family History Records Found No data available for this section No Family History Records Found Advance Directives No [...] content) DATE CREATED AUTHOR 05/06/2018 [facility] DATE CREATED AUTHOR AUTHOR'S ORGANIZ ATION 05/19/2018 [facility] DATE CREATED AUTHOR AUTHOR'S ORGANIZ ATION 01/16/2023 [facility] DATE CREATED AUTHOR AUTHOR'S ORGANIZ ATION 03/28/2023 [facility] DATE CREATED AUTHOR AUTHOR'S ORGANIZ ATION 05/03/2024 [facility] Care Teams (unrecognized sec tion and [...] BE BASED ON THE PRIMARY CLINICAL RECORDS. [facility] [employer] [facility]. provides no warranty or guarantee of the accuracy or completeness of information in this document.
--- NOTE | 2024-07-01 18:00 | XR_ITS ---
The [address] [address] Patient Name: KELI HATHAWAY MRN: [id number] date: 1980 Sex: M Assigned Patient Location: ER Current Patient Location: Accession/Order Number: [id number] Exam Date: 07/01/2024 19:17 Report Date: 07/01/2024 20:33 At the request of: KELIN SHEPPARD Procedure: XR hand RT min 3V EXAM: XR hand RT min 3V HISTORY: Injury COMPARISON: 02/07/2024. TECHNIQUE: PA, oblique, lateral x-ray right hand. FINDINGS: No fracture or healing fracture seen. Normal appearing joints and soft tissues. Small osseous density base of proximal phalanx fifth finger is unchanged. Normal-appearing carpal bones, distal radius and ulna at the wrist. XR/XR hand RT min 3V IMPRESSION: Negative for fracture. Normal appearing joints and soft tissues. Electronically authenticated by: DEO JOVEL Date: 07/01/2024 20:33
--- NOTE | 2024-07-01 19:51 | PC.NURSE ---
Dorsum right hand is swollen, chronic.
--- NOTE | 2024-07-01 20:00 | ED.GENADUL1 ---
HPI HPI - General Adult General Chief complaint: Extremity Injury, Upper Stated complaint: UPPER RIGHT EXTREMITY PAIN Time Seen by Provider: 07/01/24 19:48 Source: patient Mode of arrival: walk-in Limitations: language barrier Limitations comment: Deaf History of Present Illness HPI narrative: 43-year-old male presents for right hand pain. He states he is scheduled for surgery with Dr. Grant on July 10. He tells us that he has had a cyst there and he bumped it on a wooden frame. There was no bleeding. The pain is moderate and he has been taking ibuprofen and Tylenol at home but it has been helping much. 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 Related Data Home Medications ?Medication ?Instructions ?Recorded ?Confirmed meloxicam 15 mg tablet 15 mg PO DAILY 07/01/24 07/01/24 Previous Rx's ?Medication ?Instructions ?Recorded acetaminophen 300 mg-codeine 30 mg 1 tab PO Q6H PRN pain 5 days #20 07/01/24 tablet tabs Allergies Allergy/AdvReac Type Severity Reaction Status Date / Time pertussis vaccine,adsorbed AdvReac Intermediate rash Verified 07/06/23 20:25 cephalexin AdvReac Severe Vomiting Uncoded 07/06/23 20:25 Opioid HPI Opioid Management Most Recent Opioid Data: No Data to Display Review of Systems ROS Narrative A ten point review of systems is negative except as noted above. PFSH PFSH Social History Smoking status: Current every day smoker Exam Narrative Exam Narrative: Nurses note and vital signs reviewed and patient is not hypoxic. General: The patient appears in no apparent distress. Patient is resting comfortably on cart. Skin: Warm, dry, no pallor noted. There is no rash noted. Head: Normocephalic, atraumatic Eye: Normal conjunctiva, no drainage Ears, Nose, Mouth, and Throat: oral mucosa is moist. Nares patent. Cardiovascular: Regular Rate and Rhythm Respiratory: Patient is in no distress, no accessory muscle use, lungs are clear to auscultation, no wheezing, rales or rhonchi GI: Soft and nontender Musculoskeletal: The right hand is examined. There is no erythema bruise or rash or open area. Fingers have full range of motion Neurological: Awake and alert Psychiatric: Cooperative Constitutional Vital Signs, click to edit/add: Last Vital Signs Temp 97.9 F 07/01/24 17:54 Pulse 78 07/01/24 17:54 Resp 18 07/01/24 17:54 BP 120/78 07/01/24 17:54 Pulse Ox 97 07/01/24 17:54 O2 Del Method Room Air 07/01/24 17:54 Course Vital Signs Vital signs: Vital Signs Temperature 97.9 F 07/01/24 17:54 Pulse Rate 78 07/01/24 17:54 Respiratory Rate 18 07/01/24 17:54 Blood Pressure 120/78 07/01/24 17:54 Pulse Oximetry 97 07/01/24 17:54 Oxygen Delivery Method Room Air 07/01/24 17:54 Temperature 97.9 F 07/01/24 17:54 Pulse Rate 78 07/01/24 17:54 Respiratory Rate 18 07/01/24 17:54 Blood Pressure 120/78 07/01/24 17:54 Pulse Oximetry 97 07/01/24 17:54 Oxygen Delivery Method Room Air 07/01/24 17:54 Medical Decision Making MDM Narrative Medical decision making narrative: He was given a Tylenol 3 here and prescribed same. He will see his orthopedist at follow-up. Treatment diagnosis and follow-up were discussed with the patient. Medical Records Medical records reviewed: Yes I reviewed the patient's medical records Discharge Plan Discharge Stand Alone Forms: Portal Instructions Chief Complaint: Extremity Injury, Upper Clinical Impression: Hand pain, right Patient Disposition: Home, Self-Care Time of Disposition Decision: 19:58 Condition: Good Mode of Transportation: Private Vehicle Prescriptions / Home Meds: New acetaminophen-codeine 300-30 mg tablet 1 tab PO Q6H PRN (Reason: pain) 5 Days Qty: 20 0RF No Action meloxicam 15 mg tablet 15 mg PO DAILY Print Language: Ivorian Instructions: Arthralgia (ED) Referrals: Physician,Non-Staff, MD [Primary Care Provider] - 1 week
[2024-07-01] MEDS: ACETAMINOPHEN 300 MG/ 30 MG CODEINE TABLET 1 TAB PO (20:05)
== END 2024-07-01 20:10 | disposition home or self-care (01) ==
PROVIDERS: Emergency Provider Emergency Medicine
DX: M79.641 Pain in right hand (principal); H91.93 Unspecified hearing loss, bilateral; F17.200 Nicotine dependence, unspecified, uncomplicated
CPT/HCPCS: 73130; 99283

== ENCOUNTER 2024-07-10 10:48 | Outpatient (OUT) | payer MEDICARE, MEDICAID, SELFPAY ==
--- OUTSIDE RECORDS SUMMARY | 2024-07-10 10:53 | XMS_ITS | CCD ---
Author Organization [facility] Inform ion Partnership [facility] Care Team Providers Care Heavy Mobile Equipment Repairer Name Role Phone BETH MARTINEZ Unavailable Unavailable Spasic, CULVERT INSTALLER-C Ela Bey Attending Provider Spasic, Ela Bey [...] Translations: [pertussis vaccines] Drug Allergy 7 [facility] Repository (2 sources) Cephalexin; Translations: [cephalexin] Drug Allergy 7 [facility] Repository (1 source) Cephalexin; Translations: [cephalexin] Drug Allergy Vomiting (disorder) [facility] (1 source) Bordetella pertussis antigen (substance); Translations: [pertussis vaccines] Drug allergy Itching [facility] Medications Current Medications Medication Drug Class(es) Dates Sig (Normalized) Sig (Original) acetaminophen 325 mg / HYDROcodone bitartrate 5 mg oral tablet (2 sources) Opioid Agonist Start: 04-06-2021 take 1 tablet by mouth every six hours as needed for pain [place] 325 mg-5 mg oral tablet 1 tab(s), Oral, q6hr as needed for pain, 7 tab(s), Refill(s) 0, [facility], 185, cm, 04/06/21 10:33:00 EDT, Height/Length Dosing, 81.9, kg, 04/06/21 10:33:00 EDT, Weight Dosing Start Date: 04/06/21 Status: Ordered Start: 05-22-2019 [place] 325 mg-5 mg oral tablet 1 tab(s), Oral, q4hr for pain, 12 tab(s), Refill(s) 0 Start Date: 05/22/19 Status: Ordered naproxen 500 mg oral tablet (2 sources) Nonsteroidal Anti-inflammatory Drug Start: 04-06-2021 take 1 tablet by mouth twice daily Naprosyn 500 mg Tab 500 mg = 1 tab(s), Oral, BID, # 20 tab(s), Refills(s) 0, Pharmacy: [facility]/pharmacy #[id number], 185.4, cm, 04/16/24 10:42:00 EDT, [...] day(s), # 30 tab(s), Refills(s) 0, Pharmacy: [facility]/pharmacy #[id number], 185.4, cm, 04/16/24 10:42:00 EDT, [...] deaf, communicates via sign language, and iPad flour distributor was used. Review of Systems A 10 [...] BID, # 20 tab(s), Refills(s) 0, Pharmacy: [facility]/pharmacy #[id number], 185.4, cm, 04/16/24 10:42:00 EDT, Height/Length Dosing, 80.5, kg, 04/16/24 10:42:00 EDT, Weight Dosing penicillin V potassium, 500 mg = 1 tab(s), Oral, TID, Take one tab by mouth 3 times a day. # 30, X 10 day(s), # 30 tab(s), Refills(s) 0, Pharmacy: [facility]/pharmacy #[id number], 185.4, cm, 04/16/24 10:42:00 EDT, [...] Oral, TID Follow-up With When Contact Information [facility] In 3 days 04/19/[address] [place] [address] [place] [phone] Business (1) Additional Instructions: Dentistry follow-up Patient [...] made to ensure accuracy, however, inadvertently computerized signal manager mistakes may be present. Appropriate healthcare PPE was used in evaluating this patient. Problem List/Past Medical History Ongoing Smoker Historical Deaf mutism Inguinal hernia Umbilical hernia Procedure/Surgical History History of repair of inguinal hernia. Medications Inpatient No active inpatient medications Home Naprosyn 500 mg Tab, 500 mg= 1 tab(s), Oral, BID Naprosyn 500 mg Tab, 500 mg= 1 tab(s), Oral, BID, PRN Royersford 325 mg-5 mg oral tablet, 1 tab(s), Oral, q4hr, PRN [place] 325 mg-5 mg oral tablet, 1 tab(s), [...] available. Diagnostic Results No qualifying data available. [facility] Comment on above: Result Comment: Elec tronically Signed By: Victor M Hairston PA-C\.br\Date and Time Signed: 04/16/24 11:33 EDT\.br\Electronically Co-Signed By: Martinez Phelan MD\.br\Date and Time Co-Signed: 05/02/24 09:04 EDT Consent for Treatmenton Consent for Treatment [id number] [facility] Discharge Instructionson Discharge Instructions [id number] [facility] Discharge Instructions [id number] [facility] ED Clinical Summaryon 2023 ED Clinical Summary [place] [id number] ED Clinical Summary Person Information Name: KELI HATHAWAY Jr [facility] Age[facility] 43 Years : 1980 Sex: Male Language: Swedish PCP: KATHERINE GIMENEZ MD Marital Status: Phone: [phone] Visit Id: Visit Reason: Dental pain; TOOTH [...] 04/16/2024 11:25:21 04/16/2024 11:25:21 04/16/2024 11:25:21 ADDRESS: [address] [place] [phone] PHYS DOC NOTES: MEDICAL INFORMATION: Prescriptions Given: New Medications [id number], [address], [place] [phone], [phone] penicillin V potassium (penicillin V potassium 500 mg Tab) 1 Tablets By Mouth 3 times a day for 10 Days. Take one tab by mouth 3 times a day. # 30. Refills: 0. Medications to Continue Taking That Have Changed [facility]/pharmacy #[id number], [address], [place] [phone], [phone] START: naproxen (Naprosyn 500 mg Tab) 1 Tablets By Mouth 2 times a day. Refills: 0. Other Medications START: naproxen (Naprosyn 500 mg Tab) 1 Tablets By Mouth 2 times a day as needed Pain. Refills: 0. Medications to Continue with No Changes Other Medications acetaminophen-hydrocod one ([place] 325 mg-5 mg oral tablet) 1 Tablets By Mouth every 4 hours as needed for pain. Refills: 0. acetaminophen-hydrocod one ([place] 325 mg-5 mg oral tablet) 1 Tablets By Mouth every 6 hours as needed as needed for pain. Refills: 0. ondansetron (Zofran ODT 8 mg Tab-Dis) 1 Tablets By Mouth every 8 hours as needed Nausea. Refills: 1. PATIENT EDUCATION INFORMATION: Instructions: Dental Pain Follow up: With: Address: When: [address] [address] Business (1) In 3 days 04/19/2024 Comments: Dentistry follow-up DIAGNOSIS: Pain, dental Normal [facility] ED Noteon 04-16-2024 ED Note [id number] .00TIFF Normal [facility] ED Patient Education Noteon 04-16-2024 ED Patient [...] after getting dental care. Medicines ? Take tjog-eoj-iyvvvhu and prescription medicines only as told by [...] may be mild or severe. ? Take vofo-jln-mbmuitp and prescription medicines only as told by [...] provider. Document Revised: 08/06/2021 Document Reviewed: 08/06/2021 [employer] Patient Education ? 2022 [employer] Normal [facility] ED Patient Summaryon 024 ED Patient Summary [place] [id number] Patient Discharge Instructions Person Information Name: KELI HATHAWAY Jr Age: 43 Years Arrival Date: 04/16/2024 10:29:50 Discharge Diagnosis: Pain, dental Primary Care Physician: KATHERINE GIMENEZ MD Provider Information Primary Provider: Martinez Phelan MD [employer] Facer:Victor M Hairston PA-C The exam and treatment you received in the Emergency Department were for an urgent problem and are not intended as complete care. It is important that you follow up with a doctor, nurse practitioner, or physician?s phlebotomist lab assistant for ongoing care. If your symptoms become worse or you do not improve as expected and you are unable to reach your usual health care provider, you should return to the Emergency Department. We are available 24 hours a day. KELI HATHAWAY Jr has been given the following list of patient education materials, prescriptions and follow-up instructions: Follow-up Instructions: With: Address: When: [facility]ject [address] [place], [place] [id number] Business (1) In 3 days 04/19/2024 Comments: Dentistry follow-up In the event that this physician does not participate in your insurance network, please consult with your insurance company to find a nearby participating provider. Patient Education Materials: Dental Pain A MESSAGE TO ALL PATIENTS REGARDING OPIOIDS PRESCRIPTION OPIOIDS: WHAT YOU NEED TO KNOW Prescription opioids can be used to help relieve cpgkxpev-qw-vpdoet pain and are often prescribed following a [...] be struggling with addiction, tell your health personal care service provider and ask for guidance or call [facility] National Helpline at 8-888-277-ESSC (more content not included)... Normal [facility] ECHO LIMITED STUDYon 023 ECHO LIMITED STUDY Patient Name Site KELI Corbett [facility] Account No Medical Record Number Age Sex Date Time [id number] [facility]:[id number] M 03/24/2023 10:03 At the Request [...] Galicia M.D. on 03/24/2023 at 18:14 Normal [facility] XR CSPINE 2_3 VIEWSon 2022 XR CSPINE [...] by: RAMESH ROSE Date: 2022-12-24 07:41 Normal [facility] US THYROIDon 12-23-2022 US THYROID EXAM: US [...] by: KAYODE ONEILL Date: 2022-12-23 15:22 Normal [facility] XR CHEST 2 Von 12-23-2022 XR CHEST [...] by: KAYODE ONEILL Date: 2022-12-23 15:25 Normal [facility] Albumin [Mass/volume] in Ser um or PlasmaOrdered By: Ela Salmeron on 12-10-2022 Albumin [Mass/Vol] 3.9 g/dL Normal 3.2-5.5 [facility] Comment on above: Order Comment: Reaso n for Exam Atypical chest pain Performed By: #### H SCRP, CBC, CMP, TSH3 wRFLX, FE and TIBC, LIPID #### [facility] [address] [place] [address] Automated basophil %Ordered By: Ela Salmeron on 12-10-2022 Basophils/100 WBC (Bld) 0.8 % Normal . [facility] Comment on above: Order Comment: Reaso n for Exam Atypical chest pain Performed By: #### H SCRP, CBC, CMP, TSH3 wRFLX, FE and TIBC, LIPID #### [facility] [address] [place] [address] Automated basophil countOrde red By: Ela Sharpc on 12-10-2022 Basophils (Bld) [#/Vol] 0.1 10*3/uL Normal 0.0-0.2 [facility] [place] [facility] Comment on above: Order Comment: Reaso n for Exam Atypical chest pain Result Comment: PERF ORMED BY: [place] [address] PATHOLOGIST WAREHOUSE TEAM MEMBER KAIA ORELLANA M.D. Performed By: #### H SCRP, CBC, CMP, TSH3 wRFLX, FE and TIBC, LIPID #### [address] Automated blood monocyte cou ntOrdered By: Ela Salmeron on 12-10-2022 Monocytes (Bld) [#/Vol] 0.7 10*3/uL Normal 0.0-0.8 [facility] Comment on above: Order Comment: Reaso n for Exam Atypical chest pain Performed By: #### H SCRP, CBC, CMP, TSH3 wRFLX, FE and TIBC, LIPID #### [address] Automated eosinophil %Ordere d By: Ela Salmeron on 12-10-2022 Eosinophils/100 WBC (Bld) 3.2 % Normal . [facility] [place] [facility] Comment on above: Order Comment: Reaso n for Exam Atypical chest pain Performed By: #### H SCRP, CBC, CMP, TSH3 wRFLX, FE and TIBC, LIPID #### [address] Automated eosinophil countOr dered By: Ela Salmeron on 12-10-2022 Eosinophils (Bld) [#/Vol] 0.3 10*3/uL Normal 0.0-0.45 [facility] [facility] Comment on above: Order Comment: Reaso n for Exam Atypical chest pain Performed By: #### H SCRP, CBC, CMP, TSH3 wRFLX, FE and TIBC, LIPID #### [facility] [address] [place] [address] [place] Automated monocyte %Ordered By: Ela Salmeron on 12-10-2022 Monocytes/100 WBC (Bld) 8.5 % Normal . [facility] Comment on above: Order Comment: Reaso n for Exam Atypical chest pain Performed By: #### H SCRP, CBC, CMP, TSH3 wRFLX, FE and TIBC, LIPID #### [facility] [address] [place] [address] [place] Automated neutrophil %Ordere d By: Ela Salmeron on 12-10-2022 Neutrophils/100 WBC (Bld) 59.1 % Normal . [facility] [place] [facility] Comment on above: Order Comment: Reaso n for Exam Atypical chest pain Performed By: #### H SCRP, CBC, CMP, TSH3 wRFLX, FE and TIBC, LIPID #### [facility] [address] [place] [address] [place] C reactive protein [Mass/vol ume] in Serum or Plasma by High sensitivity methodOrdered By: Ela Salmeron on 12-10-2022 CRP High sensitivity method [Mass/Vol] 5.5 mg/L [facility] [facility] Comment on above: Cardiovascular Risk Classification [...] 12-10-2022 Transferrin [Mass/Vol] 203 mg/dL Normal 180-380 [facility] Comment on above: Order Comment: Reaso n for Exam Atypical chest pain Performed By: #### H SCRP, CBC, CMP, TSH3 wRFLX, FE and TIBC, LIPID #### [facility] [address] Cholesterol [Mass/volume] in Serum or PlasmaOrdered By: Ela Salmeron on 12-10-2022 Cholesterol [Mass/Vol] 146 mg/dL Normal 140-200 [facility] Comment on above: Chol less than 200 [...] TSH3 wRFLX, FE and TIBC, LIPID #### [facility] [address] Cholesterol in LDL Calc [Mas s/Vol]Ordered By: Ela Salmeron on 12-10-2022 Cholesterol in LDL [Mass/Vol] 81 mg/dL 0-100 [facility] [facility] Comment on above: LDL ATP III CLASSIFI CATIONLDL less than 100 mg/dL OptimalLDL 100-129 mg/dL Near or above optimalLDL 130-159 mg/dL Borderline highLDL 160-189 mg/dL HighLDL greater than 189 mg/dL Very high Cholesterol in VLDL Calc [Ma ss/Vol]Ordered By: Ela Salmeron on 12-10-2022 Cholesterol in VLDL [Mass/Vol] 33 mg/dL [facility] [facility] Complete Blood Count Auto Di ffon 12-10-2022 Mean Corpuscular HGB Conc 33.7 g/dL Normal 32.5-35.6 [facility] [facility] Comment on above: Order Comment: Reaso n for Exam Atypical chest pain Performed By: #### H SCRP, CBC, CMP, TSH3 wRFLX, FE and TIBC, LIPID #### [facility] [address] NRBC% 0.1 /100{WBC} Normal 0-0.5 [facility] Comment on above: Order Comment: Reaso n for Exam Atypical chest pain Performed By: #### H SCRP, CBC, CMP, TSH3 wRFLX, FE and TIBC, LIPID #### [facility] [address] Comprehensive Metabolic Pane noemy 12-10-2022 ALT [Catalytic activity/Vol] 13 U/L Normal 10-60 [facility] Comment on above: Order Comment: Reaso n for Exam Atypical chest pain Performed By: #### H SCRP, CBC, CMP, TSH3 wRFLX, FE and TIBC, LIPID #### [facility] [address] [place] [address] Estimated GFR ( Anyi > 60 Normal [facility] [facility] Comment on above: Order Comment: Reaso n for Exam Atypical chest pain Result Comment: GFR estimated reference range: According to KDOQI guidelines, <60 ml/min/1.73m2 is sufficient to diagnose a patient with chronic kidney disease. Performed By: #### H SCRP, CBC, CMP, TSH3 wRFLX, FE and TIBC, LIPID #### [facility] [address] [place] [address] Estimated GFR (Non- Am > 60 Normal [facility] Comment on above: Order Comment: Reaso n for Exam Atypical chest pain Performed By: #### H SCRP, CBC, CMP, TSH3 wRFLX, FE and TIBC, LIPID #### [facility] [address] [place] [address] Erythrocyte distribution wid th [Ratio] by Automated countOrdered By: Ela Salmeron on 12-10-2022 Erythrocyte distribution width (RBC) [Ratio] 12.8 % Normal 12.0-14.8 [facility] Comment on above: Order Comment: Reaso n for Exam Atypical chest pain Performed By: #### H SCRP, CBC, CMP, TSH3 wRFLX, FE and TIBC, LIPID #### [facility] [address] [place] [address] Erythrocytes [#/volume] in B lood by Automated countOrdered By: Ela Salmeron on 12-10-2022 RBC (Bld) [#/Vol] 5.05 10*6/uL Normal 3.90-5.60 [facility] Comment on above: Order Comment: Reaso n for Exam Atypical chest pain Performed By: #### H SCRP, CBC, CMP, TSH3 wRFLX, FE and TIBC, LIPID #### [facility] [address] Estimated glomerular filtrat ion rate (GFR) non- AmericanOrdered By: Ela Salmeron on 12-10-2022 GFR/1.73 sq M.predicted among non-blacks MDRD (S/P/Bld) [Vol rate/Area] > 60 mL/Min [facility] Hematocrit [Volume Fraction] of Blood by Automated countOrdered By: Ela Salmeron on 12-10-2022 Hematocrit (Bld) [Volume fraction] 44.9 % Normal 38.8-50.0 [facility] Comment on above: Order Comment: Reaso n for Exam Atypical chest pain Performed By: #### H SCRP, CBC, CMP, TSH3 wRFLX, FE and TIBC, LIPID #### [facility] [address] Hemoglobin [Mass/volume] in BloodOrdered By: Ela Salmeron on 12-10-2022 Hemoglobin (Bld) [Mass/Vol] 15.1 g/dL Normal 13.0-17.0 [facility] Comment on above: Order Comment: Reaso n for Exam Atypical chest pain Performed By: #### H SCRP, CBC, CMP, TSH3 wRFLX, FE and TIBC, LIPID #### [facility] [address] [place] [id number] [place] High Sensitive CRPon 023 High Sensitive CRP 5.5 mg/L Normal [facility] Comment on above: Order Comment: [...] for estimation of CVD risk. PERFORMED BY: [place] [address] PATHOLOGIST WAREHOUSE TEAM MEMBER KAIA ORELLANA M.D. Performed By: #### H SCRP, CBC, CMP, TSH3 wRFLX, FE and TIBC, LIPID #### [address] Iron [Mass/volume] in Serum or PlasmaOrdered By: Ela Spasic on 12-10-2022 Iron [Mass/Vol] 140 ug/dL Normal 40-160 [facility] [place] [facility] Comment on above: Order Comment: Reaso n for Exam Atypical chest pain Performed By: #### H SCRP, CBC, CMP, TSH3 wRFLX, FE and TIBC, LIPID #### [facility] [address] [place] [address] Iron and TIBC Profileon 11-16 % Iron Saturation 49.3 % Normal 20-50 [facility] Comment on above: Order Comment: Reaso n for Exam Atypical chest pain Performed By: #### H SCRP, CBC, CMP, TSH3 wRFLX, FE and TIBC, LIPID #### [facility] [address] [place] [address] Total Iron Binding Capacity 284 ug/dL Normal 255-450 [facility] [place] [facility] Comment on above: Order Comment: Reaso n for Exam Atypical chest pain Performed By: #### H SCRP, CBC, CMP, TSH3 wRFLX, FE and TIBC, LIPID #### [place] [address] [place] Iron binding capacity [Mass/ volume] in Serum or PlasmaOrdered By: Ela Spasic on 12-10-2022 Iron binding capacity [Mass/Vol] 284 ug/dL 255-450 [facility] [facility] Iron saturation [Mass Fracti on] in Serum or PlasmaOrdered By: Ela Spasic on 12-10-2022 Iron saturation [Mass fraction] 49.3 % 20-50 [facility] Leukocytes [#/volume] correc aristeo for nucleated erythrocytes in Blood by Automated counOrdered By: Ela Salmeron on 12-10-2022 WBC corrected for nucl RBC Auto (Bld) [#/Vol] 8.7 10*3/uL 4.1-10.5 [facility] [facility] Leukocytes [#/volume] in Blo od by Automated countOrdered By: Ela Salmeron on 12-10-2022 WBC (Bld) [#/Vol] 8.7 10*3/uL Normal 4.1-10.5 [facility] Comment on above: Order Comment: Reaso n for Exam Atypical chest pain Performed By: #### H SCRP, CBC, CMP, TSH3 wRFLX, FE and TIBC, LIPID #### [facility] [address] Lipid Panelon 12-10-2022 LDL Cholesterol,Calculated 81 mg/dL Normal 0-100 [facility] [facility] Comment on above: Order Comment: Reaso n for Exam Atypical chest pain Result Comment: LDL ATP III CLASSIFICATION LDL less than 100 mg/dL Optimal LDL 100-129 mg/dL Near or above optimal LDL 130-159 mg/dL Borderline high LDL 160-189 mg/dL High LDL greater than 189 mg/dL Very high Performed By: #### H SCRP, CBC, CMP, TSH3 wRFLX, FE and TIBC, LIPID #### [facility] [address] Triglyceride w/Reflex 168 mg/dL High 35-149 [facility] Comment on above: Order Comment: [...] TSH3 wRFLX, FE and TIBC, LIPID #### [facility] [address] VLDL CHOLESTEROL 33 mg/dL Normal [facility] Comment on above: Order Comment: Reaso n for Exam Atypical chest pain Performed By: #### H SCRP, CBC, CMP, TSH3 wRFLX, FE and TIBC, LIPID #### [facility] [address] [place] [address] [place] Lymphocytes [#/volume] in Bl ood by Automated countOrdered By: Ela Salmeron on 12-10-2022 Lymphocytes (Bld) [#/Vol] 2.5 10*3/uL Normal 1.00-4.8 [facility] [place] [facility] Comment on above: Order Comment: Reaso n for Exam Atypical chest pain Performed By: #### H SCRP, CBC, CMP, TSH3 wRFLX, FE and TIBC, LIPID #### [facility] [address] Lymphocytes/100 leukocytes i n Blood by Automated countOrdered By: Ela Salmeron on 12-10-2022 Lymphocytes/100 WBC (Bld) 28.4 % Normal . [facility] [place] [facility] Comment on above: Order Comment: Reaso n for Exam Atypical chest pain Performed By: #### H SCRP, CBC, CMP, TSH3 wRFLX, FE and TIBC, LIPID #### [facility] [address] [place] [address] [place] MCH [Entitic mass] by Automa aristeo countOrdered By: Ela Salmeron on 12-10-2022 MCH (RBC) [Entitic mass] 30.0 pg Normal 27.5-35.2 [facility] [place] [facility] Comment on above: Order Comment: Reaso n for Exam Atypical chest pain Performed By: #### H SCRP, CBC, CMP, TSH3 wRFLX, FE and TIBC, LIPID #### [facility] [address] MCHC Auto (RBC) [Mass/Vol]Or dered By: Ela Salmeron on 12-10-2022 MCHC (RBC) [Mass/Vol] 33.7 g/dL 32.5-35.6 [facility] MCV [Entitic volume] by Auto mated countOrdered By: Ela Salmeron on 12-10-2022 MCV (RBC) [Entitic vol] 88.9 fL Normal 83.5-101 F [facility] Comment on above: Order Comment: Reaso n for Exam Atypical chest pain Performed By: #### H SCRP, CBC, CMP, TSH3 wRFLX, FE and TIBC, LIPID #### [facility] [address] Neutrophils [#/volume] in Bl ood by Automated countOrdered By: Ela Salmeron on 12-10-2022 Neutrophils (Bld) [#/Vol] 5.1 10*3/uL Normal 1.8-7.7 [facility] [place] [facility] Comment on above: Order Comment: Reaso n for Exam Atypical chest pain Performed By: #### H SCRP, CBC, CMP, TSH3 wRFLX, FE and TIBC, LIPID #### [facility] [address] No Panel InformationOrdered By: Ela Salmeron on 12-10-2022 Estimated GFR () > 60 mL/Min [facility] [place] [facility] Comment on above: GFR estimated refere nce range: According to KDOQI guidelines, <60 ml/min/1.73m2 is sufficient to diagnose a patient with chronic kidney disease. Pharmacy Creatinine Clearance (Chem N/A [facility] [facility] Nucleated erythrocytes [Pres ence] in Blood by Automated countOrdered By: Ela Salmeron on 12-10-2022 Nucleated RBC Auto Ql (Bld) 0.1 /100{WBC} 0-0.5 [facility] Platelet mean volume [Entiti c volume] in Blood by Automated countOrdered By: Ela Salmeron on 12-10-2022 Platelet mean volume (Bld) [Entitic vol] 6.8 fL Normal 6.6-10.1 [facility] Comment on above: Order Comment: Reaso n for Exam Atypical chest pain Performed By: #### H SCRP, CBC, CMP, TSH3 wRFLX, FE and TIBC, LIPID #### [facility] [address] Platelets [#/volume] in Bloo d by Automated countOrdered By: Ela Salmeron on 12-10-2022 Platelets (Bld) [#/Vol] 350 10*3/uL Normal 150-450 [facility] [place] [facility] Comment on above: Order Comment: Reaso n for Exam Atypical chest pain Performed By: #### H SCRP, CBC, CMP, TSH3 wRFLX, FE and TIBC, LIPID #### [facility] [address] Protein [Mass/volume] in Ser um or PlasmaOrdered By: Ela Salmeron on 12-10-2022 Protein [Mass/Vol] 6.5 g/dL Normal 6.1-7.9 [facility] Comment on above: Order Comment: Reaso n for Exam Atypical chest pain Performed By: #### H SCRP, CBC, CMP, TSH3 wRFLX, FE and TIBC, LIPID #### [facility] [address] [address] Serum globulin measurement b y calculation (mass/volume)Ordered By: Ela Salmeron on 12-10-2022 Globulin (S) [Mass/Vol] 2.6 g/dL Normal [facility] Comment on above: Order Comment: Reaso n for Exam Atypical chest pain Performed By: #### H SCRP, CBC, CMP, TSH3 wRFLX, FE and TIBC, LIPID #### [facility] [address] Serum or plasma alanine noyola otransferase measurement without P-5'-P (enzymatic activiOrdered By: Ela Salmeron on 12-10-2022 ALT No additional P-5'-P [Catalytic activity/Vol] 13 U/L 10-60 [facility] Serum or plasma albumin/glob ulin mass ratioOrdered By: Ela Salmeron on 12-10-2022 Albumin/Globulin [Mass ratio] 1.5 {ratio} Normal [facility] Comment on above: Order Comment: Reaso n for Exam Atypical chest pain Performed By: #### H SCRP, CBC, CMP, TSH3 wRFLX, FE and TIBC, LIPID #### [facility] [address] Serum or plasma alkaline monica sphatase measurement (enzymatic activity/volume)Ordered By: Ela Salmeron on 12-10-2022 ALP [Catalytic activity/Vol] 57 U/L Normal 32-92 [facility] Comment on above: Order Comment: Reaso n for Exam Atypical chest pain Performed By: #### H SCRP, CBC, CMP, TSH3 wRFLX, FE and TIBC, LIPID #### [facility] [address] Serum or plasma anion gap de terminationOrdered By: Ela Salmeron on 12-10-2022 Anion gap [Moles/Vol] 11.1 mmol/L Normal 6.0-15.0 [facility] Comment on above: Order Comment: Reaso n for Exam Atypical chest pain Performed By: #### H SCRP, CBC, CMP, TSH3 wRFLX, FE and TIBC, LIPID #### [facility] [address] [place] [address] Serum or plasma aspartate am inotransferase measurement (enzymatic activity/volume)Ordered By: Ela Salmeron on 12-10-2022 AST [Catalytic activity/Vol] 15 U/L Normal 10-42 [facility] Comment on above: Order Comment: Reaso n for Exam Atypical chest pain Performed By: #### H SCRP, CBC, CMP, TSH3 wRFLX, FE and TIBC, LIPID #### [address] Serum or plasma calcium marla urement (mass/volume)Ordered By: Ela Salmeron on 12-10-2022 Calcium [Mass/Vol] 9.1 mg/dL Normal 8.2-10.2 [facility] Comment on above: Order Comment: Reaso n for Exam Atypical chest pain Performed By: #### H SCRP, CBC, CMP, TSH3 wRFLX, FE and TIBC, LIPID #### [facility] [address] [place] [address] Serum or plasma chloride amelia surement (moles/volume)Ordered By: Ela Salmeron on 12-10-2022 Chloride [Moles/Vol] 101 mmol/L Normal 95-114 [facility] Comment on above: Order Comment: Reaso n for Exam Atypical chest pain Performed By: #### H SCRP, CBC, CMP, TSH3 wRFLX, FE and TIBC, LIPID #### [facility] [address] Serum or plasma creatinine m easurement with calculation of estimated glomerular filtrOrdered By: Ela Salmeron on 12-10-2022 Creatinine [Mass/Vol] 1.01 mg/dL Normal 0.64-1.27 [facility] Comment on above: Order Comment: Reaso n for Exam Atypical chest pain Performed By: #### H SCRP, CBC, CMP, TSH3 wRFLX, FE and TIBC, LIPID #### [facility] [address] Serum or plasma glucose marla urement (mass/volume)Ordered By: Ela Salmeron on 12-10-2022 Glucose [Mass/Vol] 89 mg/dL Normal 70-100 [facility] Comment on above: ADA recommended refe rence rangeRandom Glucose Reference Range is dependent on time and content of last meal. Glucose of more than 200 mg/dL in a nonstressed, ambulatory subject supports the diagnosis of Diabetes Mellitus. Order Comment: Reaso n for Exam Atypical chest pain Result Comment: [place] om Glucose Reference Range is dependent on time and content of last meal. Glucose of more than 200 mg/dL in a nonstressed, ambulatory subject supports the diagnosis of Diabetes Mellitus. ADA recommended reference range Performed By: #### H SCRP, CBC, CMP, TSH3 wRFLX, FE and TIBC, LIPID #### [facility] [address] Serum or plasma high density lipoprotein (HDL) cholesterol measurementOrdered By: Ela Salmeron on 12-10-2022 Cholesterol in HDL [Mass/Vol] 31 mg/dL Normal 29-71 [facility] Comment on above: HDL CHOL ATP-III [...] TSH3 wRFLX, FE and TIBC, LIPID #### [facility] [address] Serum or plasma potassium me asurement (moles/volume)Ordered By: Ela Salmeron on 12-10-2022 Potassium [Moles/Vol] 4.4 mmol/L Normal 3.5-5.1 [facility] Comment on above: Order Comment: Reaso n for Exam Atypical chest pain Performed By: #### H SCRP, CBC, CMP, TSH3 wRFLX, FE and TIBC, LIPID #### [facility] [address] Serum or plasma sodium measu rement (moles/volume)Ordered By: Ela Salmeron on 12-10-2022 Sodium [Moles/Vol] 135 mmol/L Low 136-146 [facility] Comment on above: Order Comment: Reaso n for Exam Atypical chest pain Performed By: #### H SCRP, CBC, CMP, TSH3 wRFLX, FE and TIBC, LIPID #### [facility] [address] Serum or plasma total biliru bin measurement (mass/volume)Ordered By: Ela Salemron on 12-10-2022 Bilirubin [Mass/Vol] 0.8 mg/dL Normal 0.3-1.2 [facility] Comment on above: Order Comment: Reaso n for Exam Atypical chest pain Performed By: #### H SCRP, CBC, CMP, TSH3 wRFLX, FE and TIBC, LIPID #### [facility] [address] Serum or plasma total carbon dioxide measurement (moles/volume)Ordered By: Ela Salmeron on 12-10-2022 CO2 [Moles/Vol] 27.3 mmol/L Normal 22.0-30.0 [facility] Comment on above: Order Comment: Reaso n for Exam Atypical chest pain Performed By: #### H SCRP, CBC, CMP, TSH3 wRFLX, FE and TIBC, LIPID #### [facility] [address] Serum or plasma total choles terol/high density lipoprotein (HDL) cholesterol mass ratOrdered By: Ela Salmeron on 12-10-2022 Cholesterol.total/Choles terol in HDL [Mass ratio] 4.7 {ratio} Normal <5.0 [facility] Comment on above: Order Comment: Reaso n for Exam Atypical chest pain Performed By: #### H SCRP, CBC, CMP, TSH3 wRFLX, FE and TIBC, LIPID #### [facility] [address] Serum or plasma urea nitroge n measurement (mass/volume)Ordered By: Ela Salmeron on 12-10-2022 Urea nitrogen [Mass/Vol] 10 mg/dL Normal 9-23 [facility] Comment on above: Order Comment: Reaso n for Exam Atypical chest pain Performed By: #### H SCRP, CBC, CMP, TSH3 wRFLX, FE and TIBC, LIPID #### [facility] [address] TSH DL <= 0.005 mIU/L QnOrde red By: Ela Salmeron on 12-10-2022 TSH Qn 1.02 m[IU]/L 0.45-5.33 [facility] Thyroid Stim Hormone w/Rflxo n 12-10-2022 Thyroid Stim Hormone w/Rflx 1.02 u[iU]/mL Normal 0.45-5.33 [facility] Comment on above: Order Comment: Reaso n for Exam Atypical chest pain Result Comment: PERF ORMED BY: [place] [address] PATHOLOGIST [employer]BER KAIA ORELLANA M.D. Performed By: #### H SCRP, CBC, CMP, TSH3 wRFLX, FE and TIBC, LIPID #### [facility] [address] Triglyceride [Mass/volume] i n Serum or PlasmaOrdered By: Ela Salmeron on 12-10-2022 Triglyceride [Mass/Vol] 168 mg/dL 35-149 F [facility] Comment on above: TRIG ATP III CLASSIF ICATIONTRIG less than 150 mg/dL NormalTRIG 150-199 mg/dL Borderline highTRIG 200-500 mg/dL High TRIG greater than 500 mg/dL Very highStandard traceable to the Center for Disease Conrtrol and Prevention (CDC) test method. Progress Noteon 02-06-2018 HIM IP Note OR Clinical Nursing Manager Normal [facility] Chlamydia/GC DNA, Uron 01-27 Chlamydia Probe, Ur Negative Normal NEG [facility] Comment on above: Result Comment: CHLA MYDIA TRACHOMATIS DNA not detected by nucleic acid amplification. Performed By: #### U CGP ####[employer] [id number] [place] [address] Gonorrhea Probe, Ur Negative Normal NEG [facility] Comment on above: Result Comment: NEIS SERIA GONORRHOEAE DNA not detected by nucleic acid amplification.[address] [place], [place] [id number] [phone] Performed By: #### U CGP ####[facility] [id number] [place] [address] Vital Signs Date Time Vital Sign Value Performing Clinician Shivi litnell 04-16-2024 10:32-0400 Body temperature 97.7 [degF] Martinez Phelan [facility] 04-16-2024 10:32-0400 Diastolic blood pressure 83 mm[Hg] Martinez Phelan [facility] 04-16-2024 10:32-0400 Heart rate 63 /min Martinez Phelan [facility] 04-16-2024 10:32-0400 SaO2% (BldA) [Mass fraction] 99 % Martinez Phelan [facility] 04-16-2024 10:32-0400 Systolic blood pressure 133 mm[Hg] Martinez Phelan [facility] Encounters Encounter Date Encounter Type Care Provider Facility Start: 04-16-2024 End: 04-16-2024 Emergency department patient visit Martinez Phelan [facility] Start: 03-24-2023 End: 03-25-2023 ambulatory ELA SPASIC Facility:[facility] Start: 12-23-2022 End: 12-24-2022 ambulatory ELA SPASIC Facility:[facility] Start: 12-10-2022 End: 12-10-2022 ambulatory Ela E Spasic [facility] Work Phone: Start: 12-10-2022 End: 12-10-2022 Departed Referred [employer] INST[employer]ER-C Ela Spasic Work Phone: [facility] Start: 01-26-2018 End: 01-27-2018 Ambulatory BETH MARTINEZ [facility] Procedures Date Procedure Procedure Detail Performing Clinician Start: 01-26-2018 C.TRACHOMATIS N.GONORRHOEAE DNA, URINE BETH MARTINEZ History of repair of inguinal hernia Martinez Phelan Immunizations Immunization Date Immunization Notes Care Provider Fa cility 07-11-2019 tetanus and diphther ia toxoids, adsorbed, preservative free, for adult use (5 Lf of tetanus toxoid and 2 Lf of diphtheria toxoid) Martinez Phelan [facility] Payers Date Payer Category Payer Self-pay [id number] 2016 Medicare [id number] 1980 Unknown [id number] [id number] 1980 Unknown [id number] [id number] 1980 Unknown [id number] [id number] 1957 Medicaid [id number] 1957 Medicare [id number] Unknown [id number] [id number] [id number] Social History Date Type Detail Facility Tobacco smoking stat [facility] Unknown if ever smoked [facility] Work Phone: Start: 1980 Sex Assigned At Male F [facility] Start: 04-06-2021 Tobacco smoking status Light t obacco smoker (finding) [facility] Sex Assigned At Male [facility] Functional Status Date Assessment Result Facility 04-16-2024 Functional Status N/A [facility] Discharge instructions 04-16-2024 Note Date [...] or after getting dental care. Medicines Take zaah-hvx-hroscrd and prescription medicines only as told by [...] pain may be mild or severe. Take wlep-opi-hsaqnii and prescription medicines only as told by [...] provider. Document Revised: 08/06/2021 Document Reviewed: 08/06/2021 [employer] Patient Education 2022 [employer]. Follow Up Care 04/16/2024 10:31:32 With:[employer] Address: [place] [address]- Business (1) When:04/19/2024 10:50:07 Comments:Dentistry follow-up [facility] Evaluation + Plan note Note Date & Type Note Facility Evaluation + Plan note No data available for this section [facility] Evaluation note Note Date & Type Note Facility Evaluation note [facility] Progress note Note Date & Type Note Facility Progress note No data available for this section [facility] Summary Purpose Family History No Family History [...] section and content) DATE CREATED AUTHOR 05/06/2018 [facility] DATE CREATED AUTHOR AUTHOR'S ORGANIZ ATION 05/19/2018 [facility] DATE CREATED AUTHOR AUTHOR'S ORGANIZ ATION 01/16/2023 [facility] DATE CREATED AUTHOR AUTHOR'S ORGANIZ ATION 03/28/2023 [facility] DATE CREATED AUTHOR AUTHOR'S ORGANIZ ATION 05/03/2024 [facility] Care Teams (unrecognized sec tion and content) [...] BE BASED ON THE PRIMARY CLINICAL RECORDS. [facility]. provides no warranty or guarantee of the accuracy or completeness of information in this document.
--- NOTE | 2024-07-10 11:07 | ECG_ITS ---
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
[2024-07-10 11:48] LABS: Basophils Percent Auto 0.5 % (0.2-2.0); Eosinophils Absolute Auto 0.1 10^3/uL (0.0-0.7); Eosinophils Percent Auto 1.2 % (0.9-7.0); Hematocrit 44.3 % (42.0-54.0); Hemoglobin 15.3 g/dL (14.0-18.0); Immature Granulocytes Abs Auto 0.04 10^3/uL (0.00-0.03); Immature Granulocytes Pct Auto 0.5 % (0.0-0.5); Lymphocytes Absolute Auto 1.9 10^3/uL (1.2-3.8); Lymphocytes Percent Auto 24.8 % (20.5-60.0); Mean Corpuscular HGB Conc 34.5 g/dL (29.9-35.2); Mean Corpuscular Hemoglobin 31.2 pg (25.9-34.0); Mean Corpuscular Volume 90.2 fL (80.0-94.0); Mean Platelet Volume 8.5 fL (9.5-13.5); Monocytes Absolute Auto 0.5 10^3/uL (0.3-0.8); Monocytes Percent Auto 6.9 % (1.7-12.0); Neutrophils Absolute Auto 5.1 10^3/uL (1.4-6.5); Neutrophils Percent Auto 66.1 % (43.0-75.0); Platelet Count 286 10^3/uL (150-450); Red Blood Count 4.91 10^6/uL (4.70-6.10); Red Cell Distribution Width 12.5 % (11.0-15.0); White Blood Count 7.7 10^3/uL (4.0-11.0)
[2024-07-10 12:07] LABS: Anion Gap 10.3; Calcium 8.8 mg/dL (8.5-10.1); Carbon Dioxide 29.1 mmol/L (21.0-32.0); Chloride 105 mmol/L (98-107); Estimated GFR (African America >60 (>=60); Estimated GFR (Non-African Ame >60 (>=60); Glucose 99 mg/dL (74-106); Potassium 4.4 mmol/L (3.5-5.1); Sodium 140 mmol/L (136-145)
== END 2024-07-10 10:49 | disposition home or self-care (01) ==
LOC: PST 10:49
PROVIDERS: Visit Provider Orthopaedic Surgery
DX: Z01.812 Encounter for preprocedural laboratory examination (principal); Z01.810 Encounter for preprocedural cardiovascular examination; R22.31 Localized swelling, mass and lump, right upper limb
CPT/HCPCS: 36415; 80048; 85025; 93005

== ENCOUNTER 2024-07-24 12:40 | Day surgery (SDC) | payer MEDICARE, MEDICAID, SELFPAY ==
[2024-07-10 11:36] VITALS: BP 118/73; PULSE 57; TEMP 36.3; O2SAT 96; BMI 22.3
--- OUTSIDE RECORDS SUMMARY | 2024-07-24 12:46 | XMS_ITS | CCD ---
Author Organization [facility] Inform ion Partnership [facility] Care Team Providers Care Transmission Superintendent Name Role Phone BETH MARTINEZ Unavailable Unavailable Spasic, GREENHOUSE SPECIALIST-C Ela Bey Attending Provider Spasic, Ela Bey Admitting Unavailable Spasic, Ela Bey Attending Unavailable SPASIC, ELA Admitting Unavailable SPASIC, ELA Attending Unavailable SPASIC, ELA Primary Care Unavailable DR RAMESH ROSE V Consulting Unavailable NEFCYKYAODE Consulting Unavailable SPASIC, ELA Consulting Unavailable SPASIC, ELA Admitting Unavailable SPASIC, ELA Attending Unavailable SPASIC, ELA Primary Care Unavailable SPASIC, ELA Consulting Unavailable KATHERINE GIMENEZ Primary Care Physician [phone] Bren Holley Unavailable Unavailable Martinez Phelan Attending Unavailable Allergies Allergy Classification Reported Allergen(s) Allergy Type Date of Onset Reaction(s) Facility (2 sources) 4-Aminobenzoic Acid; Translations: [pertussis vaccines] Drug Allergy 7 [facility] Repository (2 sources) Cephalexin; Translations: [cephalexin] Drug Allergy 7 [facility] Repository (1 source) Cephalexin; Translations: [cephalexin] Drug Allergy Vomiting (disorder) [facility] (1 source) Bordetella pertussis antigen (substance); Translations: [pertussis vaccines] Drug allergy Itching [facility] Medications Current Medications Medication Drug Class(es) Dates Sig (Normalized) Sig (Original) acetaminophen 325 mg / HYDROcodone bitartrate 5 mg oral tablet (2 sources) Opioid Agonist Start: 04-06-2021 take 1 tablet by mouth every six hours as needed for pain [place] 325 mg-5 mg oral tablet 1 tab(s), Oral, q6hr as needed for pain, 7 tab(s), Refill(s) 0, [facility], 185, cm, 04/06/21 10:33:00 EDT, Height/Length Dosing, 81.9, kg, 04/06/21 10:33:00 EDT, Weight Dosing Start Date: 04/06/21 Status: Ordered Start: 05-22-2019 [place] 325 mg-5 mg oral tablet 1 tab(s), Oral, q4hr for pain, 12 tab(s), Refill(s) 0 Start Date: 05/22/19 Status: Ordered naproxen 500 mg oral tablet (2 sources) Nonsteroidal Anti-inflammatory Drug Start: 04-06-2021 take 1 tablet by mouth twice daily Naprosyn 500 mg Tab 500 mg = 1 tab(s), Oral, BID, # 20 tab(s), Refills(s) 0, Pharmacy: [facility]/pharmacy #[id number], 185.4, cm, 04/16/24 10:42:00 EDT, [...] # 30 tab(s), Refills(s) 0, Pharmacy: [facility]/pharmacy #[id number], 185.4, cm, 04/16/24 10:42:00 EDT, [...] deaf, communicates via sign language, and iPad nailer hand was used. Review of Systems A 10 [...] # 20 tab(s), Refills(s) 0, Pharmacy: [facility]/pharmacy #[id number], 185.4, cm, 04/16/24 10:42:00 EDT, Height/Length Dosing, 80.5, kg, 04/16/24 10:42:00 EDT, Weight Dosing penicillin V potassium, 500 mg = 1 tab(s), Oral, TID, Take one tab by mouth 3 times a day. # 30, X 10 day(s), # 30 tab(s), Refills(s) 0, Pharmacy: [facility]/pharmacy #[id number], 185.4, cm, 04/16/24 10:42:00 EDT, [...] Oral, TID Follow-up With When Contact Information [facility] In 3 days 04/19/[address] [place] [address] [place] [phone] Business (1) Additional Instructions: Dentistry follow-up Patient [...] made to ensure accuracy, however, inadvertently computerized wood heel back liner mistakes may be present. Appropriate healthcare PPE was used in evaluating this patient. Problem List/Past Medical History Ongoing Smoker Historical Deaf mutism Inguinal hernia Umbilical hernia Procedure/Surgical History History of repair of inguinal hernia. Medications Inpatient No active inpatient medications Home Naprosyn 500 mg Tab, 500 mg= 1 tab(s), Oral, BID Naprosyn 500 mg Tab, 500 mg= 1 tab(s), Oral, BID, PRN [place] 325 mg-5 mg oral tablet, 1 tab(s), Oral, q4hr, PRN [place] 325 mg-5 mg oral tablet, 1 tab(s), [...] available. Diagnostic Results No qualifying data available. [facility] Comment on above: Result Comment: Elec tronically Signed By: Victor M Hairston PA-C\.br\Date and Time Signed: 04/16/24 11:33 EDT\.br\Electronically Co-Signed By: Martinez Phelan MD\.br\Date and Time Co-Signed: 05/02/24 09:04 EDT Consent for Treatmenton Consent for Treatment [id number] 0TIFF [facility] Discharge Instructionson Discharge Instructions [id number] .00TIFF [facility] Discharge Instructions [id number] .[id number] [facility] ED Clinical Summaryon 2023 ED Clinical Summary [place] [id number] ED Clinical Summary Person Information Name: KELI HATHAWAY Jr [facility] Age[facility] 43 Years : 1980 Sex: Male Language: Tajik PCP: KATHERINE GIMENEZ MD Marital Status: Phone: [phone] Visit Id: Visit Reason: Dental pain; TOOTH [...] 04/16/2024 11:25:21 04/16/2024 11:25:21 04/16/2024 11:25:21 ADDRESS: [address] [place] [phone] PHYS DOC NOTES: MEDICAL INFORMATION: Prescriptions Given: New Medications [id number], [address], [place] [id number], [phone] penicillin V potassium (penicillin V potassium 500 mg Tab) 1 Tablets By Mouth 3 times a day for 10 Days. Take one tab by mouth 3 times a day. # 30. Refills: 0. Medications to Continue Taking That Have Changed [facility]/pharmacy #[id number], [address], [place] [phone], [phone] START: naproxen (Naprosyn 500 mg Tab) 1 Tablets By Mouth 2 times a day. Refills: 0. Other Medications START: naproxen (Naprosyn 500 mg Tab) 1 Tablets By Mouth 2 times a day as needed Pain. Refills: 0. Medications to Continue with No Changes Other Medications acetaminophen-hydrocod one ([place] 325 mg-5 mg oral tablet) 1 Tablets By Mouth every 4 hours as needed for pain. Refills: 0. acetaminophen-hydrocod one ([place] 325 mg-5 mg oral tablet) 1 Tablets By Mouth every 6 hours as needed as needed for pain. Refills: 0. ondansetron (Zofran ODT 8 mg Tab-Dis) 1 Tablets By Mouth every 8 hours as needed Nausea. Refills: 1. PATIENT EDUCATION INFORMATION: Instructions: Dental Pain Follow up: With: Address: When: [address] [address] Business (1) In 3 days 04/19/2024 Comments: Dentistry follow-up DIAGNOSIS: Pain, dental Normal [facility] ED Noteon 04-16-2024 ED Note [id number] .[id number] Normal [facility] ED Patient Education Noteon 04-16-2024 [...] after getting dental care. Medicines ? Take lnrl-kgo-ydrfzlu and prescription medicines only as told by [...] may be mild or severe. ? Take rqwo-bvj-lacrtbj and prescription medicines only as told by [...] provider. Document Revised: 08/06/2021 Document Reviewed: 08/06/2021 [employer] Patient Education ? 2022 [employer] Normal [facility] ED Patient Summaryon 024 ED Patient Summary [place] [id number] Patient Discharge Instructions Person Information Name: KELI HATHAWAY Jr Age: 43 Years Arrival Date: 04/16/2024 10:29:50 Discharge Diagnosis: Pain, dental Primary Care Physician: KATHERINE GIMENEZ MD Provider Information Primary Provider: Martinez Phelan MD Advanced Director Of Institutional Sales:Victor M Hairston PA-C The exam and treatment you received in the Emergency Department were for an urgent problem and are not intended as complete care. It is important that you follow up with a doctor, nurse practitioner, or physician?s cardiology physician assistant for ongoing care. If your symptoms become worse or you do not improve as expected and you are unable to reach your usual health care provider, you should return to the Emergency Department. We are available 24 hours a day. KELI HATHAWAY Jr has been given the following list of patient education materials, prescriptions and follow-up instructions: Follow-up Instructions: With: Address: When: Sun[facility]eee [address] [place], [place] [id number] Business (1) In 3 days 04/19/2024 Comments: Dentistry follow-up In the event that this physician does not participate in your insurance network, please consult with your insurance company to find a nearby participating provider. Patient Education Materials: Dental Pain A MESSAGE TO ALL PATIENTS REGARDING OPIOIDS PRESCRIPTION OPIOIDS: WHAT YOU NEED TO KNOW Prescription opioids can be used to help relieve yqbqzjzk-ea-bkxjtw pain and are often prescribed following a [...] be struggling with addiction, tell your health home health care respiratory therapist and ask for guidance or call [facility] National Helpline at 0-871-307-XJYI (more content not included)... Normal [facility] ECHO LIMITED STUDYon 023 ECHO LIMITED STUDY Patient Name Site KELI Corbett [facility] Account No Medical Record Number Age Sex Date Time [id number] [facility]:[id number] 42 M 03/24/2023 10:03 At the Request [...] Galicia M.D. on 03/24/2023 at 18:14 Normal [facility] XR CSPINE 2_3 VIEWSon 2022 XR CSPINE [...] by: RAMESH ROSE Date: 2022-12-24 07:41 Normal [facility] US THYROIDon 12-23-2022 US THYROID EXAM: US [...] by: KAYODE ONEILL Date: 2022-12-23 15:22 Normal [facility] XR CHEST 2 Von 12-23-2022 XR CHEST [...] by: KAYODE ONEILL Date: 2022-12-23 15:25 Normal [facility] Albumin [Mass/volume] in Ser um or PlasmaOrdered By: Ela Salmeron on 12-10-2022 Albumin [Mass/Vol] 3.9 g/dL Normal 3.2-5.5 [facility] Comment on above: Order Comment: Reaso n for Exam Atypical chest pain Performed By: #### H SCRP, CBC, CMP, TSH3 wRFLX, FE and TIBC, LIPID #### [facility] [address] [place] [address] Automated basophil %Ordered By: Ela Salmeron on 12-10-2022 Basophils/100 WBC (Bld) 0.8 % Normal . [facility] Comment on above: Order Comment: Reaso n for Exam Atypical chest pain Performed By: #### H SCRP, CBC, CMP, TSH3 wRFLX, FE and TIBC, LIPID #### [facility] [address] [place] [address] Automated basophil countOrde red By: Ela Sharpc on 12-10-2022 Basophils (Bld) [#/Vol] 0.1 10*3/uL Normal 0.0-0.2 [facility] Comment on above: Order Comment: Reaso n for Exam Atypical chest pain Result Comment: PERF ORMED BY: [place] [address] PATHOLOGIST LEAF TINNER KAIA ORELLANA M.D. Performed By: #### H SCRP, CBC, CMP, TSH3 wRFLX, FE and TIBC, LIPID #### [address] Automated blood monocyte cou ntOrdered By: Ela Salmeron on 12-10-2022 Monocytes (Bld) [#/Vol] 0.7 10*3/uL Normal 0.0-0.8 [facility] Comment on above: Order Comment: Reaso n for Exam Atypical chest pain Performed By: #### H SCRP, CBC, CMP, TSH3 wRFLX, FE and TIBC, LIPID #### [address] Automated eosinophil %Ordere d By: Ela Salmeron on 12-10-2022 Eosinophils/100 WBC (Bld) 3.2 % Normal . [facility] Comment on above: Order Comment: Reaso n for Exam Atypical chest pain Performed By: #### H SCRP, CBC, CMP, TSH3 wRFLX, FE and TIBC, LIPID #### [address] Automated eosinophil countOr dered By: Ela Salmeron on 12-10-2022 Eosinophils (Bld) [#/Vol] 0.3 10*3/uL Normal 0.0-0.45 [facility] Comment on above: Order Comment: Reaso n for Exam Atypical chest pain Performed By: #### H SCRP, CBC, CMP, TSH3 wRFLX, FE and TIBC, LIPID #### [facility] [address] [place] [address] [place] Automated monocyte %Ordered By: Ela Salmeron on 12-10-2022 Monocytes/100 WBC (Bld) 8.5 % Normal . [facility] Comment on above: Order Comment: Reaso n for Exam Atypical chest pain Performed By: #### H SCRP, CBC, CMP, TSH3 wRFLX, FE and TIBC, LIPID #### [facility] [address] [place] [address] [place] Automated neutrophil %Ordere d By: Ela Salmeron on 12-10-2022 Neutrophils/100 WBC (Bld) 59.1 % Normal . [facility] Comment on above: Order Comment: Reaso n for Exam Atypical chest pain Performed By: #### H SCRP, CBC, CMP, TSH3 wRFLX, FE and TIBC, LIPID #### [facility] [address] [place] [address] [place] C reactive protein [Mass/vol ume] in Serum or Plasma by High sensitivity methodOrdered By: Ela Salmeron on 12-10-2022 CRP High sensitivity method [Mass/Vol] 5.5 mg/L [facility] Comment on above: Cardiovascular Risk Classification [...] 12-10-2022 Transferrin [Mass/Vol] 203 mg/dL Normal 180-380 [facility] Comment on above: Order Comment: Reaso n for Exam Atypical chest pain Performed By: #### H SCRP, CBC, CMP, TSH3 wRFLX, FE and TIBC, LIPID #### [facility] [address] Cholesterol [Mass/volume] in Serum or PlasmaOrdered By: Ela Salmeron on 12-10-2022 Cholesterol [Mass/Vol] 146 mg/dL Normal 140-200 [facility] Comment on above: Chol less than [...] TSH3 wRFLX, FE and TIBC, LIPID #### [facility] [address] Cholesterol in LDL Calc [Mas s/Vol]Ordered By: Ela Salmeron on 12-10-2022 Cholesterol in LDL [Mass/Vol] 81 mg/dL 0-100 [facility] Comment on above: LDL ATP III CLASSIFI CATIONLDL less than 100 mg/dL OptimalLDL 100-129 mg/dL Near or above optimalLDL 130-159 mg/dL Borderline highLDL 160-189 mg/dL HighLDL greater than 189 mg/dL Very high Cholesterol in VLDL Calc [Ma ss/Vol]Ordered By: Ela Salmeron on 12-10-2022 Cholesterol in VLDL [Mass/Vol] 33 mg/dL [facility] Complete Blood Count Auto Di ffon 12-10-2022 Mean Corpuscular HGB Conc 33.7 g/dL Normal 32.5-35.6 [facility] Comment on above: Order Comment: Reaso n for Exam Atypical chest pain Performed By: #### H SCRP, CBC, CMP, TSH3 wRFLX, FE and TIBC, LIPID #### [facility] [address] NRBC% 0.1 /100{WBC} Normal 0-0.5 [facility] Comment on above: Order Comment: Reaso n for Exam Atypical chest pain Performed By: #### H SCRP, CBC, CMP, TSH3 wRFLX, FE and TIBC, LIPID #### [facility] [address] Comprehensive Metabolic Pane noemy 12-10-2022 ALT [Catalytic activity/Vol] 13 U/L Normal 10-60 [facility] Comment on above: Order Comment: Reaso n for Exam Atypical chest pain Performed By: #### H SCRP, CBC, CMP, TSH3 wRFLX, FE and TIBC, LIPID #### [facility] [address] [place] [address] Estimated GFR ( Anyi > 60 Normal [facility] Comment on above: Order Comment: Reaso n for Exam Atypical chest pain Result Comment: GFR estimated reference range: According to KDOQI guidelines, <60 ml/min/1.73m2 is sufficient to diagnose a patient with chronic kidney disease. Performed By: #### H SCRP, CBC, CMP, TSH3 wRFLX, FE and TIBC, LIPID #### [facility] [address] [place] [address] Estimated GFR (Non- Am > 60 Normal [facility] Comment on above: Order Comment: Reaso n for Exam Atypical chest pain Performed By: #### H SCRP, CBC, CMP, TSH3 wRFLX, FE and TIBC, LIPID #### [facility] [address] [place] [address] Erythrocyte distribution wid th [Ratio] by Automated countOrdered By: Ela Salmeron on 12-10-2022 Erythrocyte distribution width (RBC) [Ratio] 12.8 % Normal 12.0-14.8 [facility] Comment on above: Order Comment: Reaso n for Exam Atypical chest pain Performed By: #### H SCRP, CBC, CMP, TSH3 wRFLX, FE and TIBC, LIPID #### [facility] [address] [place] [address] Erythrocytes [#/volume] in B lood by Automated countOrdered By: Ela Salmeron on 12-10-2022 RBC (Bld) [#/Vol] 5.05 10*6/uL Normal 3.90-5.60 [facility] Comment on above: Order Comment: Reaso n for Exam Atypical chest pain Performed By: #### H SCRP, CBC, CMP, TSH3 wRFLX, FE and TIBC, LIPID #### [facility] [address] Estimated glomerular filtrat ion rate (GFR) non- AmericanOrdered By: Ela Salmeron on 12-10-2022 GFR/1.73 sq M.predicted among non-blacks MDRD (S/P/Bld) [Vol rate/Area] > 60 mL/Min [facility] Hematocrit [Volume Fraction] of Blood by Automated countOrdered By: Ela Salmeron on 12-10-2022 Hematocrit (Bld) [Volume fraction] 44.9 % Normal 38.8-50.0 [facility] Comment on above: Order Comment: Reaso n for Exam Atypical chest pain Performed By: #### H SCRP, CBC, CMP, TSH3 wRFLX, FE and TIBC, LIPID #### [facility] [address] Hemoglobin [Mass/volume] in BloodOrdered By: Ela Salmeron on 12-10-2022 Hemoglobin (Bld) [Mass/Vol] 15.1 g/dL Normal 13.0-17.0 [facility] Comment on above: Order Comment: Reaso n for Exam Atypical chest pain Performed By: #### H SCRP, CBC, CMP, TSH3 wRFLX, FE and TIBC, LIPID #### [facility] [address] [place] [id number] [place] High Sensitive CRPon 023 High Sensitive CRP 5.5 mg/L Normal [facility] Comment on above: Order Comment: Reaso [...] for estimation of CVD risk. PERFORMED BY: [place] [address] PATHOLOGIST LEAF TINNER KAIA ORELLANA M.D. Performed By: #### H SCRP, CBC, CMP, TSH3 wRFLX, FE and TIBC, LIPID #### [address] Iron [Mass/volume] in Serum or PlasmaOrdered By: Ela Spasic on 12-10-2022 Iron [Mass/Vol] 140 ug/dL Normal 40-160 [facility] Comment on above: Order Comment: Reaso n for Exam Atypical chest pain Performed By: #### H SCRP, CBC, CMP, TSH3 wRFLX, FE and TIBC, LIPID #### [facility] [address] [place] [address] Iron and TIBC Profileon 11-16 % Iron Saturation 49.3 % Normal 20-50 [facility] Comment on above: Order Comment: Reaso n for Exam Atypical chest pain Performed By: #### H SCRP, CBC, CMP, TSH3 wRFLX, FE and TIBC, LIPID #### [facility] [address] [place] [address] Total Iron Binding Capacity 284 ug/dL Normal 255-450 [facility] Comment on above: Order Comment: Reaso n for Exam Atypical chest pain Performed By: #### H SCRP, CBC, CMP, TSH3 wRFLX, FE and TIBC, LIPID #### [place] [address] [place] Iron binding capacity [Mass/ volume] in Serum or PlasmaOrdered By: Ela Spasic on 12-10-2022 Iron binding capacity [Mass/Vol] 284 ug/dL 255-450 [facility] Iron saturation [Mass Fracti on] in Serum or PlasmaOrdered By: Ela Spasic on 12-10-2022 Iron saturation [Mass fraction] 49.3 % 20-50 [facility] Leukocytes [#/volume] correc aristeo for nucleated erythrocytes in Blood by Automated counOrdered By: Ela Salmeron on 12-10-2022 WBC corrected for nucl RBC Auto (Bld) [#/Vol] 8.7 10*3/uL 4.1-10.5 [facility] Leukocytes [#/volume] in Blo od by Automated countOrdered By: Ela Salmeron on 12-10-2022 WBC (Bld) [#/Vol] 8.7 10*3/uL Normal 4.1-10.5 [facility] Comment on above: Order Comment: Reaso n for Exam Atypical chest pain Performed By: #### H SCRP, CBC, CMP, TSH3 wRFLX, FE and TIBC, LIPID #### [facility] [address] Lipid Panelon 12-10-2022 LDL Cholesterol,Calculated 81 mg/dL Normal 0-100 [facility] Comment on above: Order Comment: Reaso n for Exam Atypical chest pain Result Comment: LDL ATP III CLASSIFICATION LDL less than 100 mg/dL Optimal LDL 100-129 mg/dL Near or above optimal LDL 130-159 mg/dL Borderline high LDL 160-189 mg/dL High LDL greater than 189 mg/dL Very high Performed By: #### H SCRP, CBC, CMP, TSH3 wRFLX, FE and TIBC, LIPID #### [facility] [address] Triglyceride w/Reflex 168 mg/dL High 35-149 [facility] Comment on above: Order Comment: Reaso [...] TSH3 wRFLX, FE and TIBC, LIPID #### [facility] [address] VLDL CHOLESTEROL 33 mg/dL [facility] Comment on above: Order Comment: Reaso n for Exam Atypical chest pain Performed By: #### H SCRP, CBC, CMP, TSH3 wRFLX, FE and TIBC, LIPID #### [facility] [address] [place] [address] [place] Lymphocytes [#/volume] in Bl ood by Automated countOrdered By: Ela Salmeron on 12-10-2022 Lymphocytes (Bld) [#/Vol] 2.5 10*3/uL Normal 1.00-4.8 [facility] Comment on above: Order Comment: Reaso n for Exam Atypical chest pain Performed By: #### H SCRP, CBC, CMP, TSH3 wRFLX, FE and TIBC, LIPID #### [facility] [address] Lymphocytes/100 leukocytes i n Blood by Automated countOrdered By: Ela Salmeron on 12-10-2022 Lymphocytes/100 WBC (Bld) 28.4 % Normal . [facility] Comment on above: Order Comment: Reaso n for Exam Atypical chest pain Performed By: #### H SCRP, CBC, CMP, TSH3 wRFLX, FE and TIBC, LIPID #### [facility] [address] [place] [address] [place] MCH [Entitic mass] by Automa aristeo countOrdered By: Ela Salmeron on 12-10-2022 MCH (RBC) [Entitic mass] 30.0 pg Normal 27.5-35.2 [facility] Comment on above: Order Comment: Reaso n for Exam Atypical chest pain Performed By: #### H SCRP, CBC, CMP, TSH3 wRFLX, FE and TIBC, LIPID #### [facility] [address] MCHC Auto (RBC) [Mass/Vol]Or dered By: Ela Salmeron on 12-10-2022 MCHC (RBC) [Mass/Vol] 33.7 g/dL 32.5-35.6 [facility] MCV [Entitic volume] by Auto mated countOrdered By: Ela Salmeron on 12-10-2022 MCV (RBC) [Entitic vol] 88.9 fL Normal 83.5-101 F [facility] Comment on above: Order Comment: Reaso n for Exam Atypical chest pain Performed By: #### H SCRP, CBC, CMP, TSH3 wRFLX, FE and TIBC, LIPID #### [facility] [address] Neutrophils [#/volume] in Bl ood by Automated countOrdered By: Ela Salmeron on 12-10-2022 Neutrophils (Bld) [#/Vol] 5.1 10*3/uL Normal 1.8-7.7 [facility] Comment on above: Order Comment: Reaso n for Exam Atypical chest pain Performed By: #### H SCRP, CBC, CMP, TSH3 wRFLX, FE and TIBC, LIPID #### [facility] [address] No Panel InformationOrdered By: Ela Salmeron on 12-10-2022 Estimated GFR () > 60 mL/Min [facility] Comment on above: GFR estimated refere nce range: According to KDOQI guidelines, <60 ml/min/1.73m2 is sufficient to diagnose a patient with chronic kidney disease. Pharmacy Creatinine Clearance (Chem N/A [facility] Nucleated erythrocytes [Pres ence] in Blood by Automated countOrdered By: Ela Salmeron on 12-10-2022 Nucleated RBC Auto Ql (Bld) 0.1 /100{WBC} 0-0.5 [facility] Platelet mean volume [Entiti c volume] in Blood by Automated countOrdered By: Ela Salmeron on 12-10-2022 Platelet mean volume (Bld) [Entitic vol] 6.8 fL Normal 6.6-10.1 [facility] Comment on above: Order Comment: Reaso n for Exam Atypical chest pain Performed By: #### H SCRP, CBC, CMP, TSH3 wRFLX, FE and TIBC, LIPID #### [facility] [address] Platelets [#/volume] in Bloo d by Automated countOrdered By: Ela Salmeron on 12-10-2022 Platelets (Bld) [#/Vol] 350 10*3/uL Normal 150-450 [facility] Comment on above: Order Comment: Reaso n for Exam Atypical chest pain Performed By: #### H SCRP, CBC, CMP, TSH3 wRFLX, FE and TIBC, LIPID #### [facility] [address] Protein [Mass/volume] in Ser um or PlasmaOrdered By: Ela Salmeron on 12-10-2022 Protein [Mass/Vol] 6.5 g/dL Normal 6.1-7.9 [facility] Comment on above: Order Comment: Reaso n for Exam Atypical chest pain Performed By: #### H SCRP, CBC, CMP, TSH3 wRFLX, FE and TIBC, LIPID #### [facility] [address] Serum globulin measurement b y calculation (mass/volume)Ordered By: Ela aSlmeron on 12-10-2022 Globulin (S) [Mass/Vol] 2.6 g/dL Normal [facility] Comment on above: Order Comment: Reaso n for Exam Atypical chest pain Performed By: #### H SCRP, CBC, CMP, TSH3 wRFLX, FE and TIBC, LIPID #### [facility] [address] Serum or plasma alanine noyola otransferase measurement without P-5'-P (enzymatic activiOrdered By: Ela Salmeron on 12-10-2022 ALT No additional P-5'-P [Catalytic activity/Vol] 13 U/L 10-60 [facility] Serum or plasma albumin/glob ulin mass ratioOrdered By: Ela Salmeron on 12-10-2022 Albumin/Globulin [Mass ratio] 1.5 {ratio} Normal [facility] Comment on above: Order Comment: Reaso n for Exam Atypical chest pain Performed By: #### H SCRP, CBC, CMP, TSH3 wRFLX, FE and TIBC, LIPID #### [facility] [address] Serum or plasma alkaline monica sphatase measurement (enzymatic activity/volume)Ordered By: Ela Salmeron on 12-10-2022 ALP [Catalytic activity/Vol] 57 U/L Normal 32-92 [facility] Comment on above: Order Comment: Reaso n for Exam Atypical chest pain Performed By: #### H SCRP, CBC, CMP, TSH3 wRFLX, FE and TIBC, LIPID #### [facility] [address] Serum or plasma anion gap de terminationOrdered By: Ela Salmeron on 12-10-2022 Anion gap [Moles/Vol] 11.1 mmol/L Normal 6.0-15.0 [facility] Comment on above: Order Comment: Reaso n for Exam Atypical chest pain Performed By: #### H SCRP, CBC, CMP, TSH3 wRFLX, FE and TIBC, LIPID #### [facility] [address] [place] [address] Serum or plasma aspartate am inotransferase measurement (enzymatic activity/volume)Ordered By: Ela Salmeron on 12-10-2022 AST [Catalytic activity/Vol] 15 U/L Normal 10-42 [facility] Comment on above: Order Comment: Reaso n for Exam Atypical chest pain Performed By: #### H SCRP, CBC, CMP, TSH3 wRFLX, FE and TIBC, LIPID #### [address] Serum or plasma calcium marla urement (mass/volume)Ordered By: Ela Salmeron on 12-10-2022 Calcium [Mass/Vol] 9.1 mg/dL Normal 8.2-10.2 [facility] Comment on above: Order Comment: Reaso n for Exam Atypical chest pain Performed By: #### H SCRP, CBC, CMP, TSH3 wRFLX, FE and TIBC, LIPID #### [facility] [address] [place] [address] Serum or plasma chloride amelia surement (moles/volume)Ordered By: Ela Salmeron on 12-10-2022 Chloride [Moles/Vol] 101 mmol/L Normal 95-114 [facility] Comment on above: Order Comment: Reaso n for Exam Atypical chest pain Performed By: #### H SCRP, CBC, CMP, TSH3 wRFLX, FE and TIBC, LIPID #### [facility] [address] Serum or plasma creatinine m easurement with calculation of estimated glomerular filtrOrdered By: Ela Salmeron on 12-10-2022 Creatinine [Mass/Vol] 1.01 mg/dL Normal 0.64-1.27 [facility] Comment on above: Order Comment: Reaso n for Exam Atypical chest pain Performed By: #### H SCRP, CBC, CMP, TSH3 wRFLX, FE and TIBC, LIPID #### [facility] [address] Serum or plasma glucose marla urement (mass/volume)Ordered By: Ela Salmeron on 12-10-2022 Glucose [Mass/Vol] 89 mg/dL Normal 70-100 [facility] Comment on above: ADA recommended refe rence rangeRandom Glucose Reference Range is dependent on time and content of last meal. Glucose of more than 200 mg/dL in a nonstressed, ambulatory subject supports the diagnosis of Diabetes Mellitus. Order Comment: Reaso n for Exam Atypical chest pain Result Comment: [place] om Glucose Reference Range is dependent on time and content of last meal. Glucose of more than 200 mg/dL in a nonstressed, ambulatory subject supports the diagnosis of Diabetes Mellitus. ADA recommended reference range Performed By: #### H SCRP, CBC, CMP, TSH3 wRFLX, FE and TIBC, LIPID #### [facility] [address] Serum or plasma high density lipoprotein (HDL) cholesterol measurementOrdered By: Ela Salmeron on 12-10-2022 Cholesterol in HDL [Mass/Vol] 31 mg/dL Normal 29-71 [facility] Comment on above: HDL CHOL ATP-III [...] TSH3 wRFLX, FE and TIBC, LIPID #### [facility] [address] Serum or plasma potassium me asurement (moles/volume)Ordered By: Ela Salmeron on 12-10-2022 Potassium [Moles/Vol] 4.4 mmol/L Normal 3.5-5.1 [facility] Comment on above: Order Comment: Reaso n for Exam Atypical chest pain Performed By: #### H SCRP, CBC, CMP, TSH3 wRFLX, FE and TIBC, LIPID #### [facility] [address] Serum or plasma sodium measu rement (moles/volume)Ordered By: Ela Salmeron on 12-10-2022 Sodium [Moles/Vol] 135 mmol/L Low 136-146 [facility] Comment on above: Order Comment: Reaso n for Exam Atypical chest pain Performed By: #### H SCRP, CBC, CMP, TSH3 wRFLX, FE and TIBC, LIPID #### [facility] [address] Serum or plasma total biliru bin measurement (mass/volume)Ordered By: Ela Salmeron on 12-10-2022 Bilirubin [Mass/Vol] 0.8 mg/dL Normal 0.3-1.2 [facility] Comment on above: Order Comment: Reaso n for Exam Atypical chest pain Performed By: #### H SCRP, CBC, CMP, TSH3 wRFLX, FE and TIBC, LIPID #### [facility] [address] Serum or plasma total carbon dioxide measurement (moles/volume)Ordered By: Ela Salmeron on 12-10-2022 CO2 [Moles/Vol] 27.3 mmol/L Normal 22.0-30.0 [facility] Comment on above: Order Comment: Reaso n for Exam Atypical chest pain Performed By: #### H SCRP, CBC, CMP, TSH3 wRFLX, FE and TIBC, LIPID #### [facility] [address] Serum or plasma total choles terol/high density lipoprotein (HDL) cholesterol mass ratOrdered By: Ela Salmeron on 12-10-2022 Cholesterol.total/Choles terol in HDL [Mass ratio] 4.7 {ratio} Normal <5.0 [facility] Comment on above: Order Comment: Reaso n for Exam Atypical chest pain Performed By: #### H SCRP, CBC, CMP, TSH3 wRFLX, FE and TIBC, LIPID #### [facility] [address] Serum or plasma urea nitroge n measurement (mass/volume)Ordered By: Ela Salmeron on 12-10-2022 Urea nitrogen [Mass/Vol] 10 mg/dL Normal 9-23 [facility] Comment on above: Order Comment: Reaso n for Exam Atypical chest pain Performed By: #### H SCRP, CBC, CMP, TSH3 wRFLX, FE and TIBC, LIPID #### [facility] [address] TSH DL <= 0.005 mIU/L QnOrde red By: Ela Salmeron on 12-10-2022 TSH Qn 1.02 m[IU]/L 0.45-5.33 [facility] Thyroid Stim Hormone w/Rflxo n 12-10-2022 Thyroid Stim Hormone w/Rflx 1.02 u[iU]/mL Normal 0.45-5.33 [facility] Comment on above: Order Comment: Reaso n for Exam Atypical chest pain Result Comment: PERF ORMED BY: [place] [address] PATHOLOGIST LEAF TINNER KAIA ORELLANA M.D. Performed By: #### H SCRP, CBC, CMP, TSH3 wRFLX, FE and TIBC, LIPID #### [facility] [address] Triglyceride [Mass/volume] i n Serum or PlasmaOrdered By: Ela Salmeron on 12-10-2022 Triglyceride [Mass/Vol] 168 mg/dL 35-149 F [facility] Comment on above: TRIG ATP III CLASSIF ICATIONTRIG less than 150 mg/dL NormalTRIG 150-199 mg/dL Borderline highTRIG 200-500 mg/dL High TRIG greater than 500 mg/dL Very highStandard traceable to the Center for Disease Conrtrol and Prevention (CDC) test method. Progress Noteon 02-06-2018 HIM IP Note OR Academic Records Specialist Normal [facility] Chlamydia/GC DNA, Uron 01-27 Chlamydia Probe, Ur Negative Normal NEG [facility] Comment on above: Result Comment: CHLA MYDIA TRACHOMATIS DNA not detected by nucleic acid amplification. Performed By: #### U CGP ####[employer] [id number] [place] [address] Gonorrhea Probe, Ur Negative Normal NEG [facility] Comment on above: Result Comment: NEIS SERIA GONORRHOEAE DNA not detected by nucleic acid amplification.[employer] [address] [place], [place] [id number] ([phone] Performed By: #### U CGP ####[facility] [id number] [place] [address] Vital Signs Date Time Vital Sign Value Performing Clinician Shivi litnell 04-16-2024 10:32-0400 Body temperature 97.7 [degF] Martinez Phelan [facility] 04-16-2024 10:32-0400 Diastolic blood pressure 83 mm[Hg] Martinez Phelan [facility] 04-16-2024 10:32-0400 Heart rate 63 /min Martinez Phelan [facility] 04-16-2024 10:32-0400 SaO2% (BldA) [Mass fraction] 99 % Martinez Phelan [facility] 04-16-2024 10:32-0400 Systolic blood pressure 133 mm[Hg] Martinez Phelan [facility] Encounters Encounter Date Encounter Type Care Provider Facility Start: 04-16-2024 End: 04-16-2024 Emergency department patient visit Martinez Phelan [facility] Start: 03-24-2023 End: 03-25-2023 ambulatory ELA SPASIC Facility:[facility] Start: 12-23-2022 End: 12-24-2022 ambulatory ELA SPASIC Facility:[facility] Start: 12-10-2022 End: 12-10-2022 ambulatory Ela E Spasic [facility] Work Phone: Start: 12-10-2022 End: 12-10-2022 Departed [facility]erred [employer] Ela Spasic Work Phone: [facility] Start: 01-26-2018 End: 01-27-2018 Ambulatory BETH MARTINEZ [facility] Procedures Date Procedure Procedure Detail Performing Clinician Start: 01-26-2018 C.TRACHOMATIS N.GONORRHOEAE DNA, URINE BETH MARTINZE History of repair of inguinal hernia Martinez Phelan Immunizations Immunization Date Immunization Notes Care Provider Fa cility 07-11-2019 tetanus and diphther ia toxoids, adsorbed, preservative free, for adult use (5 Lf of tetanus toxoid and 2 Lf of diphtheria toxoid) Martinez Phelan [facility] Payers Date Payer Category Payer Self-pay [id number] 2016 Medicare [id number] 1980 Unknown [id number] [id number] [id number] 1982 Unknown [id number] [id number] [id number] 1982 Unknown [id number] [id number] 1957 Medicaid [id number] 1957 Medicare [id number] Unknown [id number] [id number] Social History Date Type Detail Facility Tobacco smoking stat [facility] Unknown if ever smoked [facility] Work Phone: Start: 1980 Sex Assigned At Male F [facility] Start: 04-06-2021 Tobacco smoking status Light t obacco smoker (finding) [facility] Sex Assigned At Male [facility] Functional Status Date Assessment Result Facility 04-16-2024 Functional Status N/A [facility] Discharge instructions 04-16-2024 Note Date [...] or after getting dental care. Medicines Take wgia-leb-kasnqcd and prescription medicines only as told by [...] pain may be mild or severe. Take fssi-cff-nelnbfh and prescription medicines only as told by [...] provider. Document Revised: 08/06/2021 Document Reviewed: 08/06/2021 [employer] Patient Education 2022 [employer] Follow Up Care 04/16/2024 10:31:32 With:[facility] Address: [place] [address]- Business (1) When:04/19/2024 10:50:07 Comments:Dentistry follow-up [facility] Evaluation + Plan note Note Date & Type Note Facility Evaluation + Plan note No data available for this section [facility] Evaluation note Note Date & Type Note Facility Evaluation note [facility] Progress note Note Date & Type Note Facility Progress note No data available for this section [facility] Summary Purpose Family History No Family [...] section and content) DATE CREATED AUTHOR 05/06/2018 [facility] DATE CREATED AUTHOR AUTHOR'S ORGANIZ ATION 05/19/2018 [facility] DATE CREATED AUTHOR AUTHOR'S ORGANIZ ATION 01/16/2023 [facility] DATE CREATED AUTHOR AUTHOR'S ORGANIZ ATION 03/28/2023 [facility] DATE CREATED AUTHOR AUTHOR'S ORGANIZ ATION 05/03/2024 [facility] Care Teams (unrecognized sec tion [...] BE BASED ON THE PRIMARY CLINICAL RECORDS. [facility] [employer] [facility]. provides no warranty or guarantee of the accuracy or completeness of information in this document.
[2024-07-24 12:56] VITALS: BP 118/71; PULSE 51; TEMP 36.3; O2SAT 98; BMI 22.5
[2024-07-24] MEDS: LACTATED RINGER'S SOLUTION 1,000 ML 50 ML IV (13:56)
[2024-07-24] MEDS: CLINDAMYCIN PHOS 900 MG/50 ML D5W PREMIX 100 MG IV (15:24)
[2024-07-24] MEDS: LIDOCAINE HCL 1%-EPINEPHRINE 1:100,000 20 ML MDV 5 ML INJ (16:03)
[2024-07-24] MEDS: BUPIVACAINE HCL 0.5% PF 50 MG/10 ML VIAL 5 ML INJ (16:04)
[2024-07-24 16:13] VITALS: BP 107/77; PULSE 65; TEMP 36.7; O2SAT 99
[2024-07-24 16:27] VITALS: BP 110/72; PULSE 66; O2SAT 99
--- NOTE | 2024-07-24 16:37 | PM.ORPRC ---
Procedure Note Date of procedure: 07/24/24 Pre-op diagnosis: Right hand mass Post-op diagnosis: other (Right hand infection) Procedure: Procedures: Irrigation and debridement right hand infection Operative procedure: After informed consent was obtained the patient brought to the operating room where monitored anesthetic was administered. A total of 9 mL equal mixture 1% lidocaine with epinephrine combined with 0.5% Marcaine plain was infiltrated proximal to the incision site. The right hand was prepped draped in usual sterile fashion. Well-padded proximal arm tourniquet was placed. The arm was elevated, exsanguinated, and the tourniquet was inflated to 200 mmHg. The scabbed over area was ellipsed out overlying his index metacarpal phalangeal joint. The soft tissue was significantly thickened and indurated. No purulence identified at this point. Blunt dissection was then carried down deeper and with this there was less than 3 mL of purulent fluid identified. This was overlying the long finger metacarpal. No bone was visualized. Bone was not soft. Was irrigated copiously. Wound was then closed over iodoform gauze with 3-0 nylon suture in a simple fashion. Sterile dressing was placed. Patient was brought to the recovery room in stable condition. There were no intraoperative or immediate postoperative complications. Anesthesia: MAC and local Surgeon: Erwin Grant Estimated blood loss (mL): 5 Pathology: other Condition: stable Disposition: PACU
[2024-07-24] MEDS: ACETAMINOPHEN 300 MG/ 30 MG CODEINE TABLET 1 TAB PO (16:45)
[2024-07-24 17:00] VITALS: BP 110/78; PULSE 68; O2SAT 99
[2024-07-24 17:20] VITALS: BP 110/88; PULSE 66; O2SAT 99
--- NOTE | 2024-07-24 17:42 | PC.NURSE ---
0309- Medicated with Tylenol with codeine for pain as ordered. Pain level is 3 per Non-verbal pain scale.
== END 2024-07-24 17:20 | disposition home or self-care (01) ==
PROVIDERS: Visit Provider Orthopaedic Surgery
PROC: (CPT 1810; principal; 2024-07-24 14:30)
DX: L57.0 Actinic keratosis (principal); R22.31 Localized swelling, mass and lump, right upper limb; H91.90 Unspecified hearing loss, unspecified ear
CPT/HCPCS: 26116; 36415; 87070; 87075; 87150; 88305; 99999; J0665; J0736; J1100; J1885; J2405; J2704